=== PATIENT | female | born 1955 | race American Indian/Alaskan Native ===

== ENCOUNTER 2016-08-13 07:22 | Day surgery (SDC) | payer OTHER ==
[2016-06-21 09:10] VITALS: PULSE 73
[2016-08-12 12:17] VITALS: BMI 29.0
[2016-08-13 08:00] LABS: ADD MANUAL DIFF? NO
[2016-08-13 08:03] LABS: BASO # 0.04 K/mm3 (0.0-2.0); BASO % 0.4 % (0.0-3.0); EOS # 0.1 (0.0-0.7); EOS % 0.9 % (1.5-5.0); GRAN # 6.74 (1.4-6.5); GRAN % 62.7 % (50.0-68.0); HEMATOCRIT 38.8 % (36.0-48.0); LYMPH # 2.9 (1.2-3.4); LYMPH % 27.3 % (22.0-35.0); MEAN CORPUSCULAR HEMOGLOBIN 28.5 pg (25.0-35.0); MEAN CORPUSCULAR HGB CONC 32.7 g/dl (31.0-37.0); MEAN PLATELET VOLUME 9.4 fl (7.0-11.0); MONO # 0.9 (0.1-0.6); MONO % 8.7 % (1.0-6.0); PLATELET COUNT 355 10^3/uL (120.0-450.0); RED CELL DISTRIBUTION WIDTH 15.1 % (11.5-14.5); WHITE BLOOD COUNT 10.7 10^3/ul (4.5-11.0)
[2016-08-13 08:14] LABS: INR 1.02 (0.93-1.08); PARTIAL THROMBOPLASTIN TIME 30.6 Seconds (23.7-30.8)
--- NOTE | 2016-08-13 08:17 | CP.SDSHP ---
Same Day Surgery H & P - History Proposed Procedure: lung Bx. Pre-Op Diagnosis: spiculated lung nodule in left upper lobe. - Previous Medical/Surgical History Cardiac: Hypertension, ASHD/CAD, Previous IN, Hx of CHF Pulmonary: Emphysema/COPD, Smoking Neuro: Backaches Pain: 0. No Pain Previous Surgical History: STENT HEART . - Allergies Allergies: Allergies No Known Allergies Allergy (Verified 06/20/16 12:10) - Physical Exam General Appearance: WNL. Vital Signs: Vital Signs 08/13/16 07:46 Temperature 98.2 F Pulse Rate 84 Respiratory 18 Rate Blood Pressure 143/84 O2 Sat by Pulse 99 Oximetry Mental Status: Alert & Oriented x3 Neuro: WNL Heart: WNL Lungs: WNL GI: WNL - {Optional Preform as Required} Other Pertinent Findings: HX of gerd . hx of anxiety. - Impression Impression: LUNG NODULE LEFT UPPER LOBE. - Date & Time Date: 08/13/16 Time: 08:17 Short Stay Discharge - Short Stay Discharge Admitting Diagnosis/Reason for Visit: LUNG NODULE R91.1 Disposition: HOME/ ROUTINE
[2016-08-13 08:20] LABS: ALB/GLOB RATIO 1.3 (1.1-1.8); ALKALINE PHOSPHATASE 91 U/L (38-133); ALT/SGPT 28 U/L (7-56); AST/SGOT 20 U/L (15-39); BILIRUBIN,TOTAL 0.5 mg/dL (0.2-1.3); BLOOD UREA NITROGEN 21 mg/dL (7-21); CALCIUM 9.6 mg/dL (8.4-10.5); CARBON DIOXIDE 28 mmol/L (21-33); CHLORIDE 101 mmol/L (98-107); GFR AFRICAN-AMERICAN > 60; GLUCOSE,RANDOM 97 mg/dL (70-110); POTASSIUM 3.8 mmol/L (3.6-5.0); SODIUM 139 mmol/L (132-148); TOTAL PROTEIN 7.7 g/dL (5.8-8.3)
[2016-08-13] MEDS ORDERED: Midazolam 2 MG/2 ML VIAL ONE (09:22)
[2016-08-13] MEDS ORDERED: Sodium Chloride 0.45% 1,000 ML IV SCH (10:30)
[2016-08-13 10:48] VITALS: O2SAT 98
[2016-08-13 11:37] VITALS: PULSE 80; RESP 18; TEMP 98.4
[2016-08-13 11:54] VITALS: BP 122/82
--- NOTE | 2016-08-13 14:29 | CT ---
PROCEDURE: CT of the chest without contrast HISTORY: CT LIMITED STUDY - REPLACING Bx COMPARISON: 07/18/2016 TECHNIQUE: Without contrast limited study FINDINGS: The study was initially performed for the purposes of a biopsy. However images show a decrease in the size of the left upper lobe nodule. Therefore the biopsy was canceled IMPRESSION: Decreased size of left upper lobe nodule. Biopsy was not performed
== END 2016-08-13 12:25 | disposition home or self-care (01) ==
LOC: SDS 07:22
PROVIDERS: ATTEND Radiology Vascular & Interventional Radiology
DX: R91.1 Solitary pulmonary nodule (principal); I10 Essential (primary) hypertension; I25.10 Atherosclerotic heart disease of native coronary artery without angina pectoris; I50.9 Heart failure, unspecified; J44.9 Chronic obstructive pulmonary disease, unspecified; M54.9 Dorsalgia, unspecified; F17.210 Nicotine dependence, cigarettes, uncomplicated; I25.2 Old myocardial infarction; Z95.5 Presence of coronary angioplasty implant and graft; Z53.8 Procedure and treatment not carried out for other reasons
CPT/HCPCS: 36415; 71250; 80053; 85025; 85610; 85730; J2250; J2405; J3010; J7030

== ENCOUNTER 2016-09-18 22:11 | Observation (INO) | payer OTHER ==
[2016-09-18 22:16] VITALS: BMI 30.1
--- NOTE | 2016-09-18 22:29 | ED PDOC ---
Arrival/HPI - General Time Seen by Provider: 09/18/16 22:12 Historian: Patient - History of Present Illness Narrative History of Present Illness (Text): 09/18/16 22:28 Lelo Denton is a 60 year old female, whose past medical history includes heart murmur, NSTEMI, cardiac catheterization with stenting, hypertension, CHF, COPD, asthma, bronchitis, emphysma, and pneumonia, who presents to the ED complaining of shortness of breath. Patient states she has been experiencing intermittent shortness of breath since yesterday, progressively worsening throughout today. Patient reports associated chest tightness. Patient denies any fever, chills, abdominal pain, nausea, vomiting, diarrhea, urinary symptoms, back pain, neck pain, headache, dizziness, or any other complaints. PMD: Dr. Gisela Santana Time/Duration: Other (yesterday) Symptom Onset: Gradual Symptom Course: Unchanged, Intermittent Activities at Onset: Light Context: Home Past Medical History - Provider Review Nursing Documentation Reviewed: Yes - Infectious Disease Hx of Infectious Diseases: None - Tetanus Immunization Tetanus Immunization: Unknown - Past Medical History Past Medical History: No Previous - Cardiac Hx GA: Yes (2014) Hx Pacemaker: No - Pulmonary Hx Respiratory Disorders: Yes Hx Asthma: Yes Hx Bronchitis: Yes Hx Chronic Obstructive Pulmonary Disease (COPD): Yes Hx Emphysema: Yes Hx Pneumonia: Yes - Neurological Hx Paralysis: No - HEENT Hx HEENT Disorder: Yes (reading glasses) - Renal Hx Renal Disorder: No - Endocrine/Metabolic Hx Endocrine Disorders: No - Hematological/Oncological Hx Blood Transfusions: No Hx Blood Transfusion Reaction: No - Integumentary Hx Dermatological Disorder: No - Musculoskeletal/Rheumatological Hx Musculoskeletal Disorders: Yes - Gastrointestinal Hx Gastrointestinal Disorders: No - Genitourinary/Gynecological Hx Genitourinary Disorders: Yes (TUBAL LIGATION) Hx Urinary Tract Infection: Yes - Psychiatric Hx Emotional Abuse: No Hx Physical Abuse: No Hx Substance Use: No - Past Surgical History Past Surgical History: Non-Contributing - Surgical History Hx Cardiac Catheterization: Yes Hx Coronary Stent: Yes (10/19/2014) Other/Comment: HX OF TUBAL LIGATION - Anesthesia Hx Anesthesia: Yes Hx Anesthesia Reactions: No Hx Malignant Hyperthermia: No - Suicidal Assessment Feels Threatened In Home Enviroment: No Family/Social History - Physician Review Nursing Documentation Reviewed: Yes Family/Social History: No Known Family HX Smoking Status: Former Smoker Hx Alcohol Use: No Hx Substance Use: No Hx Substance Use Treatment: No Allergies/Home Meds Allergies/Adverse Reactions: Allergies No Known Allergies Allergy (Verified 06/20/16 12:10) Home Medications: Home Meds Medication Instructions Recorded Confirmed Albuterol HFA [Ventolin HFA 90 2 puff IH Q4 PRN 08/12/16 09/19/16 mcg/actuation (8 g)] Albuterol/Ipratropium [Duoneb 3 3 ml IH [id number] PRN 08/12/16 09/19/16 mg/0.5 mg (3 ml) UD] Review of Systems - Physician Review All systems were reviewed & negative as marked: Yes - Review of Systems Constitutional: Normal Eyes: Normal ENT: Normal Respiratory: SOB Cardiovascular: Chest Pain Gastrointestinal: Normal. absent: Abdominal Pain, Diarrhea, Nausea, Vomiting Genitourinary Female: Normal Musculoskeletal: Normal. absent: Back Pain, Neck Pain Skin: Normal. absent: Rash Neurological: Normal. absent: Headache, Dizziness Endocrine: Normal Hemo/Lymphatic: Normal Psychiatric: Normal Physical Exam Vital Signs Reviewed: Yes Vital Signs Temp Pulse Pulse Resp BP Pulse Ox 09/19/16 18:15 98.5 F 108 H 20 129/80 09/19/16 18:07 98.2 F 09/19/16 18:00 114 H 20 123/78 95 09/19/16 17:43 98.6 F 90 90 16 129/68 09/19/16 16:30 102 H 20 112/73 09/19/16 14:30 102 H 20 115/76 97 09/19/16 13:30 104 H 20 130/81 98 09/19/16 11:30 98 H 20 128/76 97 09/19/16 10:53 126/76 09/19/16 09:00 102 H 20 122/78 96 09/19/16 07:30 98.6 F 90 16 129/68 95 09/19/16 06:29 92 H 17 123/86 99 09/19/16 05:40 93 H 17 123/71 98 09/19/16 03:36 97 H 17 114/73 97 09/19/16 00:45 99 H 18 132/74 99 09/18/16 22:28 114 H 25 H 142/84 100 Temperature: Afebrile Blood Pressure: Normal Pulse: Regular Respiratory Rate: Normal Appearance: Positive for: Well-Appearing, Non-Toxic, Comfortable Pain Distress: None Mental Status: Positive for: Alert and Oriented X 3 - Systems Exam Head: Present: Atraumatic, Normocephalic Pupils: Present: PERRL Extroacular Muscles: Present: EOMI Conjunctiva: Present: Normal Mouth: Present: Moist Mucous Membranes Neck: Present: Normal Range of Motion Respiratory/Chest: Present: Wheezes. No: Respiratory Distress, Accessory Muscle Use Cardiovascular: Present: Regular Rate and Rhythm, Normal S1, S2. No: Murmurs Abdomen: Present: Normal Bowel Sounds. No: Tenderness, Distention, Peritoneal Signs Upper Extremity: Present: Normal Inspection. No: Cyanosis, Edema Lower Extremity: Present: Normal Inspection. No: Edema Neurological: Present: GCS=15, CN II-XII Intact, Speech Normal Skin: Present: Warm, Dry, Normal Color. No: Rashes Psychiatric: Present: Alert, Oriented x 3, Normal Insight, Normal Concentration Medical Decision Making ED Course and Treatment: 09/18/16 22:29 Impression: 60 y/o female c/o shortness of breath and chest tightness since yesterday. Differential Diagnosis included but are not limited to: COPD vs. asthma exacerbation v.s pneumonia vs. bronchitis Plan: -- EKG -- CXR -- Labs, cardiac enzymes, BNP, VBG, blood cultures -- Duoneb -- Solu-medrol - Reassess and disposition Prior Visits: Notes and results from previous visits were reviewed. On 08/17/2016, pt was seen in the ED for shortness of breath, chest pressure, and pleuritic chest pain. Pt was admitted to the hospital for further evaluation. Progress Notes: Reviewed EKG, sinus tachycardia at 113 bpm. Non-specific ST/T wave changes. 09/18/16 23:36 Reviewed radiology, CXR shows COPD. 09/18/16 23:[address] Santana, who is aware and agrees with plan. Accepts pt in to his service. Pt will go to Telemetry observation for COPD. Discussed results and hospital observation plan with pt, who is aware and verbalizes understanding. 09/19/16 02:47 Reviewed CTA Chest, shows: 1. There is emphysema. Stable left upper lobe pulmonary nodule. No focal pneumonia. 2. There is mediastinal adenopathy. - Lab Interpretations Microbiology Results: Microbiology Results 09/18/16 23:05 Blood-Venous Blood Culture - Preliminary NO GROWTH AFTER 48 HOURS 09/18/16 22:50 Blood-Venous Blood Culture - Preliminary NO GROWTH AFTER 48 HOURS Lab Results: 09/18/16 22:50 09/18/16 22:50 Lab Results 09/18/16 22:50: Sodium 140, Chloride 102, Potassium 3.6, Carbon Dioxide 30, Anion Gap 12, BUN 11, Creatinine 0.8, Est GFR ( Amer) > 60, Est GFR (Non- Af Amer) > 60, Random Glucose 117 H, Calcium 8.9, Total Bilirubin 0.4, AST 26, ALT 23, Alkaline Phosphatase 84, Lactate Dehydrogenase 478, Total Creatine Kinase 212, Troponin I < 0.01, NT-Pro-B Natriuret Pep 52.0, Total Protein 6.7, Albumin 3.9, Globulin 2.9, Albumin/Globulin Ratio 1.3 09/18/16 22:50: pO2 219 H, VBG pH 7.38, VBG pCO2 52.0, VBG HCO3 30.8 H, VBG Total CO2 32.4 H, VBG O2 Sat (Calc) 99.5 H, VBG Base Excess 4.4 H, VBG Potassium 3.5 L, Sodium 139.0, Chloride 109.0 H, Glucose 126 H, Lactate 1.1, FiO2 21.0, Venous Blood Potassium 3.5 L 09/18/16 22:50: WBC 7.7 D, RBC 4.44, Hgb 12.4, Hct 38.5, MCV 86.7, MCH 27.9, MCHC 32.2, RDW 15.5 H, Plt Count 308, MPV 9.4, Gran % 66.3, Lymph % (Auto) 20.9 L, Victoria % (Auto) 9.6 H, Eos % (Auto) 2.9, Baso % (Auto) 0.3, Gran # 5.10, Lymph # 1.6, Victoria # 0.7 H, Eos # 0.2, Baso # 0.02 I have reviewed the lab results: Yes - RAD Interpretation Narrative RAD Interpretations (Text): CTA Chest, shows: Pulmonary arteries: No acute findings. No pulmonary embolism. Aorta: No acute findings. No thoracic aortic aneurysm. Lungs: There is emphysema. Stable left upper lobe pulmonary nodule. No focal pneumonia. Pleural space: No acute findings. No significant effusion. No pneumothorax. Heart: No acute findings. No cardiomegaly. No significant pericardial effusion. No evidence of RV dysfunction. Bones/joints: No acute fracture. No dislocation. Soft tissues: No acute findings. Lymph nodes: There is mediastinal adenopathy. IMPRESSION: 1. There is emphysema. Stable left upper lobe pulmonary nodule. No focal pneumonia. 2. There is mediastinal adenopathy. Radiology Orders: 09/18/16 22:33 CHEST PORTABLE [RAD] Stat 09/18/16 23:50 ANGIO CHEST PE PROTOCOL [CT] Stat Occupational Therapy Asst: ED Physician, Radiologist - EKG Interpretation Interpreted by ED Physician: Yes Type: 12 lead EKG - Medication Orders Current Medication Orders: Discontinued Medications Acetaminophen (Tylenol 325mg Tab) 650 mg PO Q4H PRN PRN Reason: Fever >100.5 F Last Admin: 09/19/16 14:27 Dose: 650 mg Re-Assess: MAR Pain/Vitals Document 09/19/16 15:27 [place] (Rec: 09/19/16 16:27 Eduar [id number]) Pain Reassessment Is This A Pain ReAssessment? Yes Sleep Is patient sleeping during reassessment? No Albuterol/Ipratropium (Duoneb 3 Mg/0.5 Mg (3 Ml) Ud) 3 ml IH Q15M [facility] Stop: 09/18/16 23:16 Last Admin: 09/18/16 23:20 Dose: 3 ml Albuterol/Ipratropium (Duoneb 3 Mg/0.5 Mg (3 Ml) Ud) 3 ml IH Q4H PRN PRN Reason: Shortness of Breath Last Admin: 09/19/16 19:48 Dose: 3 ml Atorvastatin Calcium (Lipitor) 40 mg PO DAILY [facility] Last Admin: 09/20/16 09:53 Dose: 40 mg Budesonide (Pulmicort Respules) 0.5 mg IH [id number] [facility] Last Admin: 09/20/16 08:35 Dose: 0.5 mg Clopidogrel Bisulfate (Plavix) 75 mg PO DAILY [facility] Last Admin: 09/20/16 09:53 Dose: 75 mg Digoxin (Lanoxin) 0.25 mg PO DAILY@1400 [facility] Last Admin: 09/19/16 14:23 Dose: 0.25 mg Furosemide (Lasix) 40 mg PO DAILY [facility] Last Admin: 09/20/16 09:53 Dose: 40 mg Hydromorphone HCl (Dilaudid) 1 mg IVP STAT STA Stop: 09/18/16 23:45 Last Admin: 09/18/16 23:52 Dose: 1 mg Re-Assess: JESS Pain Assessment Document 09/19/16 00:52 RD (Rec: 09/19/16 06:42 RD [id number]) Pain Reassessment Is this a pain reassessment? Yes Sleep Is patient sleeping during reassessment? No Presence of Pain Presence of Pain No Levalbuterol HCl (Xopenex) 0.63 mg IH [id number] [facility] Last Admin: 09/20/16 08:35 Dose: 0.63 mg Levalbuterol HCl (Xopenex) 0.63 mg IH Q2 PRN PRN Reason: Shortness of Breath Lisinopril (Zestril) 5 mg PO DAILY [facility] Last Admin: 09/20/16 09:53 Dose: 5 mg Methylprednisolone (Solu-Medrol) 125 mg IVP ONCE ONE Stop: 09/18/16 22:34 Last Admin: 09/18/16 22:43 Dose: 125 mg Methylprednisolone (Solu-Medrol) 30 mg IVP Q12 [facility] Last Admin: 09/19/16 22:19 Dose: 30 mg Methylprednisolone (Solu-Medrol) 20 mg IVP Q12 [facility] Last Admin: 09/20/16 09:52 Dose: 20 mg Metoprolol Tartrate (Lopressor) 25 mg PO DAILY [facility] Last Admin: 09/20/16 09:53 Dose: 25 mg Pneumococcal Polyvalent Vaccine (Pneumovax 23 Vaccine) 0.5 ml IM .ONCE ONE Stop: 09/19/16 18:02 Tramadol HCl (Ultram) 50 mg PO Q8 PRN PRN Reason: Pain, moderate (4-7) Last Admin: 09/19/16 22:19 Dose: 50 mg - Scribe Statement The provider has reviewed the documentation as recorded by the Arlene Cortez Provider Attestation: All medical record entries made by the Ejibdat were at my direction and personally dictated by me. I have reviewed the chart and agree that the record accurately reflects my personal performance of the history, physical exam, medical decision making, and the department course for this patient. I have also personally directed, reviewed, and agree with the discharge instructions and disposition. Disposition/Present on Arrival - Present on Arrival Any Indicators Present on Arrival: No History of DVT/PE: No History of Uncontrolled Diabetes: No Urinary Catheter: No History Surgical Site Infection Following: None - Disposition Have Diagnosis and Disposition been Completed?: Yes Diagnosis: COPD exacerbation Disposition: HOSPITALIZED Disposition Time: 23:50 Condition: FAIR
[2016-09-18] MEDS: Albuterol-Ipratrop 3 mg / 0.5 (3 ml) UD IH SCH ×3 (22:43→23:20)
[2016-09-18 22:58] LABS: ADD MANUAL DIFF? NO
[2016-09-18 23:02] LABS: VENOUS BLOOD GAS BASE EXCESS 4.4 mmol/L (0.0-2.0); VENOUS BLOOD PH 7.38 (7.32-7.43)
[2016-09-18 23:04] LABS: BASO # 0.02 K/mm3 (0.0-2.0); BASO % 0.3 % (0.0-3.0); EOS # 0.2 (0.0-0.7); EOS % 2.9 % (1.5-5.0); GRAN % 66.3 % (50.0-68.0); HEMATOCRIT 38.5 % (36.0-48.0); LYMPH # 1.6 (1.2-3.4); LYMPH % 20.9 % (22.0-35.0); MEAN CELL VOLUME 86.7 fL (80.0-105.0); MEAN CORPUSCULAR HEMOGLOBIN 27.9 pg (25.0-35.0); MEAN CORPUSCULAR HGB CONC 32.2 g/dl (31.0-37.0); MEAN PLATELET VOLUME 9.4 fl (7.0-11.0); MONO # 0.7 (0.1-0.6); MONO % 9.6 % (1.0-6.0); PLATELET COUNT 308 10^3/uL (120.0-450.0); RED CELL DISTRIBUTION WIDTH 15.5 % (11.5-14.5); WHITE BLOOD COUNT 7.7 10^3/ul (4.5-11.0)
[2016-09-18 23:17] LABS: ALB/GLOB RATIO 1.3 (1.1-1.8); ALKALINE PHOSPHATASE 84 U/L (38-133); ALT/SGPT 23 U/L (7-56); AST/SGOT 26 U/L (15-39); BILIRUBIN,TOTAL 0.4 mg/dL (0.2-1.3); BLOOD UREA NITROGEN 11 mg/dL (7-21); CALCIUM 8.9 mg/dL (8.4-10.5); CARBON DIOXIDE 30 mmol/L (21-33); CHLORIDE 102 mmol/L (98-107); GFR AFRICAN-AMERICAN > 60; GLUCOSE,RANDOM 117 mg/dL (70-110); POTASSIUM 3.6 mmol/L (3.6-5.0); SODIUM 140 mmol/L (132-148); TOTAL PROTEIN 6.7 g/dL (5.8-8.3)
[2016-09-18 23:29] LABS: TROPONIN I < 0.01 ng/mL
[2016-09-18] MEDS ORDERED: HYDROmorphone 1 mg/ml ISec IVP STA (23:44)
[2016-09-19] MEDS: Albuterol-Ipratrop 3 mg / 0.5 (3 ml) UD IH PRN ×2 (07:12→19:48)
--- NOTE | 2016-09-19 09:40 | HP ---
I know the patient very well. Actually, I saw her yesterday morning when she was leaving the [facility]. She was going home to take a nebulizer treatment and hopefully to keep her from coming to the [facility], but she came in with shortness of breath. She has done this many times in the past and had ti ghtness also. PAST MEDICAL HISTORY: Heart murmur, NSTEMI, cardiac catheterization with stenting, hypertension, CHF , COPD, asthma, bronchitis, emphysema, pneumonia with a gradual onset, even though the nebs did not w ork. She wears reading glasses, a lot of back pain. She had a tubal ligation. She has urinary trac t infections. ALLERGIES: No known drug allergies. She is a former smoker, no alcohol, no drugs. MEDICATIONS: She is on multiple. She is on DuoNeb, albuterol, digoxin, Lasix, atorvastatin, metopro lol, Plavix, and lisinopril. REVIEW OF SYSTEMS: No acute vision changes or hearing changes, no sore throat. There is chest pain. There is shortness of breath. There is coughing, congestion, wheezing. No abdominal pain, no diar carly, no nausea or vomiting. There is no back pain at this time. No swelling of the legs. No rashe s. No headache or dizziness. PHYSICAL EXAMINATION: VITAL SIGNS: She had a 114 pulse, 25 respiratory rate, 142/84 blood pressure, 100% on oxygen. GENERAL: A little bit uncomfortable in bed at this time. She is alert and oriented x 3. HEENT: Head is atraumatic, normocephalic. Extraocular muscles are intact. Pupils equal, reactive t o light and accommodation. Throat is moist. NECK: Supple. HEART: Regular rate. Normal S1 and S2. LUNGS: Decreased breath sounds bilaterally. There are wheezes that changes with cough. ABDOMEN: Soft, nontender, positive bowel sounds. EXTREMITIES: Have no edema. NEUROLOGIC: GCS is 15. Cranial nerves II-XII are grossly intact. Alert and oriented x 3. SKIN: Warm and dry. LYMPHATIC: Thyroid midline. No palpable lymphadenopathy. She had multiple tests. White count 7.7, hemoglobin 12.4, hematocrit 38.5, platelets of 308. Sodium 140, potassium 3.6, BUN 11, creatinine 0.8, GFR is greater than 60, sugar is 117, calcium is 8.9, to ayde bili is 0.4, AST is 26, ALT is 23, alk phos is 84. Lactic dehydrogenase is 478. Troponin is les s than 0.01. BNP is 52. Total protein 6.7, albumin is 3.9. CAT scan of the chest is pending. She is in observation. She will be on Solu-Medrol 30 q. 12. Cons ult for pulmonology. She is on observation. Hopefully, she will do well and be discharged tomorrow. The patient has acute exacerbation of chronic obstructive pulmonary disease. Tom Santana DO cc: [id number] TT: 09/19/2016 09:40:01 en
[2016-09-19] MEDS ORDERED: MethylPREDNISolone 40 mg Vial IVP SCH (10:00)
[2016-09-19] MEDS: MethylPREDNISolone 40 mg Vial IVP SCH ×2 (10:53→22:19)
--- NOTE | 2016-09-19 10:53 | CT ---
PROCEDURE: CT Chest with contrast (Pulmonary Angiogram) HISTORY: r/o pe COMPARISON: 07/26/2016 PET-CT scan. Summary of findings on the comparison examination: Re- demonstrated spiculated border noncalcified nodule left upper lobe with increased FDG uptake. Two enlarged mediastinal lymph nodes. TECHNIQUE: Axial computed tomography images were obtained of the chest in the pulmonary arterial phase of enhancement. Coronal and sagittal reformatted images were created and reviewed. Maximum intensity projection (MIP) reconstructed images in the following planes: Coronal projection only. Intravenous contrast dose: 100 cc Visipaque 320. Mean Hounsfield unit values in the main pulmonary artery: 270.67 Radiation dose: Total exam DLP = 295.71 mGy-cm. This CT exam was performed using one or more of the following dose reduction techniques: Automated exposure control, adjustment of the mA and/or kV according to patient size, and/or use of iterative reconstruction technique. FINDINGS: PULMONARY ARTERIES: Unremarkable. No pulmonary embolism. AORTA: No acute findings. No thoracic aortic aneurysm. LUNGS: Hyperinflation, manifestations of COPD. No active pulmonary disease. Spiculated focus in the left apex either neoplasm, scar/inflammatory process. PLEURAL SPACES: Unremarkable. No effusion or pneuomothorax. HEART: Unremarkable. No cardiomegaly. No significant pericardial effusion. LYMPH NODES: Extensive mediastinal adenopathy. Multiple confluent lymph nodes identified the largest in the AP window measures 2.7 cm. BONES, CHEST WALL: Unremarkable. No fracture or destructive lesion OTHER FINDINGS: Unremarkable. IMPRESSION: Unremarkable CT pulmonary angiogram. No pulmonary embolus. Spiculated focus left upper lobe presumed primary neoplasm. Extensive mediastinal adenopathy. Additional benign and/or incidental findings described above. Concordant results (preliminary interpretation) provided by [email or web address]. Procedure Completed: :11. Preliminary (vRad) Report: Dictated and Authenticated: 01:50. Final Interpretation: 08:01. Mid September 18, 2016.
--- NOTE | 2016-09-19 10:54 | RAD ---
HISTORY: sob COMPARISON: 08/17/2016 FINDINGS: LUNGS: No active pulmonary disease. PLEURA: No significant pleural effusion identified, no pneumothorax apparent. CARDIOVASCULAR: Normal. OSSEOUS STRUCTURES: No significant abnormalities. VISUALIZED UPPER ABDOMEN: Normal. OTHER FINDINGS: None. IMPRESSION: No active disease.
--- NOTE | 2016-09-19 11:07 | CARD ---
APPROVED REPORT EKG Measurement Heart [id number] <Conclusion> Sinus tachycardia Possible Left atrial enlargement Nonspecific ST and T wave abnormality Abnormal ECG
[2016-09-19] MEDS ORDERED: Digoxin 250 mcg (0.25 mg) Tab PO SCH (14:00)
[2016-09-19 14:24] VITALS: PULSE 104
[2016-09-19] MEDS ORDERED: Pneumococcal 23-Valent Vaccine IM ONE (18:01)
[2016-09-19 18:05] VITALS: RESP 20; O2SAT 95
[2016-09-20] MEDS ORDERED: Levalbuterol 0.63 MG/3 ML Inhal Soln UD IH PRN (06:32)
[2016-09-20 06:45] VITALS: BP 123/66; TEMP 98.3
[2016-09-20 06:46] VITALS: PULSE 94
[2016-09-20 07:13] LABS: HEMATOCRIT 37.7 % (36.0-48.0); MEAN CELL VOLUME 86.7 fL (80.0-105.0); MEAN CORPUSCULAR HEMOGLOBIN 27.4 pg (25.0-35.0); MEAN CORPUSCULAR HGB CONC 31.6 g/dl (31.0-37.0); MEAN PLATELET VOLUME 9.9 fl (7.0-11.0); RED CELL DISTRIBUTION WIDTH 15.6 % (11.5-14.5); WHITE BLOOD COUNT 13.9 10^3/ul (4.5-11.0)
[2016-09-20 07:18] LABS: ALB/GLOB RATIO 1.5 (1.1-1.8); ALKALINE PHOSPHATASE 76 U/L (38-133); ALT/SGPT 26 U/L (7-56); AST/SGOT 18 U/L (15-39); BILIRUBIN,TOTAL 0.2 mg/dL (0.2-1.3); BLOOD UREA NITROGEN 24 mg/dL (7-21); CALCIUM 9.2 mg/dL (8.4-10.5); CARBON DIOXIDE 28 mmol/L (21-33); CHLORIDE 102 mmol/L (95-110); GFR AFRICAN-AMERICAN > 60; GLUCOSE,RANDOM 168 mg/dL (70-110); POTASSIUM 4.9 mmol/L (3.6-5.0); SODIUM 138 mmol/L (132-148); TOTAL PROTEIN 6.8 g/dL (5.8-8.3)
[2016-09-20] MEDS ORDERED: Budesonide 0.5 mg/2 ml Inhal Susp UD IH SCH (08:00)
[2016-09-20] MEDS ORDERED: Levalbuterol 0.63 MG/3 ML Inhal Soln UD IH SCH (08:00)
--- NOTE | 2016-09-20 09:26 | CON ---
DATE: 09/20/2016 REASON FOR CONSULTATION: Chronic obstructive pulmonary disease. REFERRING PHYSICIAN: Dr. Santana. HISTORY OF PRESENT ILLNESS: The patient is a 60-year-old female with past medical history significant for chronic obstructive pulmonary disease, positive extensive smoking history, asthma, left upper lobe pulmonary nodule (workup in progress), coronary artery disease, status post cardiac stent, who presented to [facility] on 09/18/16 -- with a 1-day history of increasing shortness of breath at rest, dyspnea on exertion, and minimal cough. The patient denies sputum production. The patient also denies chest pain, coughing up of blood or chest pain -- made worse with deep respirations. There is no history of temperatures, chills or infectious exposure. There is no history of night sweats, weight loss or appetite change prior to the above events. No history of leg or calf pains. No history of syncope or diaphoresis. No history of recent travel or trauma. REVIEW OF SYSTEMS: No history of nausea, vomiting or diarrhea. No acute urinary symptoms. No new neurological or musculoskeletal complaints. Rest of the review of systems negative. ALLERGIES: No known allergies. SOCIAL HISTORY: Positive for extensive tobacco usage. No alcohol. FAMILY HISTORY: No inheritable diseases. HOME MEDICATIONS: Include Lopressor, Zestril, Lasix, Lanoxin, Plavix, Lipitor, Advair, DuoNebs. PHYSICAL EXAMINATION: GENERAL: The patient appears comfortable at rest. She is not short of breath. VITAL SIGNS: Temperature is 98.5, pulse on the monitor is 88, respiratory rate 18, last blood pressure recorded 129/80. Oxygen saturation on nasal cannula is 95-97%. HEENT: Normocephalic, atraumatic. No JVD. CARDIOVASCULAR: Positive S1, S2. No S3. LUNGS: Slight decreased breath sounds at the bases. Minimal rhonchi. No wheezing. EXTREMITIES: No clubbing, cyanosis, or edema. Calves are nontender to palpation. GASTROINTESTINAL: Abdomen is soft, nontender, nondistended. Bowel sounds are positive. SKIN: No acute rash. NEUROLOGIC: Limited at the present time. PERTINENT LABORATORY DATA: CAT scan of the chest was done on 09/18/16. The CAT scan was done as a pulmonary angiogram. There is no pulmonary embolism seen. There is redemonstration of the spiculated left upper lobe nodule. Dr. Lynn notes also extensive mediastinal adenopathy. Unfortunately, Dr. Lynn does NOT note a direct comparison of the most recent CAT scan-- to the previous chest CAT scan done. More specifically, he does not note a comparison of the extent of the mediastinal adenopathy or size of the pulmonary nodule -- compared to the last CAT scan. CBC: White count 7.7, hemoglobin 12.4, hematocrit 38.5, platelets of 308. Complete metabolic profile: Glucose 107. Rest of the metabolic profile is within normal limits. IMPRESSION: 1. Recurrent bronchitis. 2. Chronic obstructive pulmonary disease. 3. Asthma. 4. Coronary artery disease, status post cardiac stent. 5. Pulmonary nodule -- left upper. PLAN: The patient presents to [facility] with a 1-day history of increasing pulmonary symptoms. I did review the repeat chest x-ray done. The repeat chest x-ray shows no active disease. I have also reviewed the CAT scan of the chest. It is noted above. Again, unfortunately, Dr. Lynn does not note a direct comparison to the last CAT scan done. Specifically, I certainly would like to know if the left upper lobe nodule size or extent of the mediastinal adenopathy has changed. This patient has a very complicated history. The patient was supposed to get a CAT scan-guided lung biopsy on . However, there was a decrease in the left upper lobe nodule size and the biopsy was not done. At this point in time, I will request an addendumized report from Dr. Lynn. I will also discuss the above with Dr. Kris Uribe this morning. Clinically, the patient has improved while in the hospital. I will decrease the intravenous steroids this morning. I will also restart scheduled nebulizer treatments and inhaled Pulmicort. The patient does feel considerably better -- compared to the initial presentation. Again, I will discuss the case with Dr. Kris Uribe and Dr. Tom Lynn this morning. I will also discuss the case with Dr. Santana later this morning. Thank you very much for this pulmonary consultation. Alex Mcgill MD cc: [phone] TT: 09/20/2016 09:26:11 Confirmation # [id number] Dictation # [id number]
[2016-09-20] MEDS ORDERED: MethylPREDNISolone 40 mg Vial IVP SCH (10:00)
--- NOTE | 2016-09-20 15:37 | DS ---
She is sitting up in bed, eating all her breakfast. She is feeling better, she is breathing better, she is on oxygen. Lungs sound good. She is very comfortable. I discussed this with the applications developer, Dr. Mcgill. We will change her from Solu-Medrol 20 mg IV to prednisone 40 for 2 days, 30 for 2 days , 20 for 2 days, 10 for 2 days and she will stop. She is also going to follow up with Dr. Mcgill in the office next week. She had vital signs that were good. PHYSICAL EXAMINATION: VITAL SIGNS: Temp 98.3, 90 pulse, 123/66 blood pressure, 20 respiratory rate, 95% O2 sat on nasal cannula. HEENT: Head is atraumatic, normocephalic. HEART: Regular rate. LUNGS: Decreased breath sounds, that is her baseline, but clear. No wheezes, no rhonchi, no rales. ABDOMEN: Soft. EXTREMITIES: Have no edema. She will go home on her Lanoxin, her Lasix, her Lipitor, her Lopressor, her Plavix, her Pulmicort. She will have Tylenol. I will give her a prescription for Ultram for pain when she needs it. Xopenex she has, Zestril she has. She has the DuoNeb at home. She has a 13.9 white count from the steroids, 11.9 hemoglobin, 37.7 hematocrit, platelets. Sodium 138, potassium 4.7, BUN 24, creatinine 0.8, GFR is greater than 60, sugar is 168 from the steroids, calcium is 9.2, total bili is 0.2, AST is 18, ALT is 26, alk phos 76, total protein 6.8. Dr. Mcgill went over the CAT scan of the chest. He is comparing it to the PET scan that she had. They are following her for outpatient possible lung cancer. She is here for chronic obstructive pulmonary disease and she will be followed up in the outpatient with Dr. Mcgill and Dr. Santana. I wrote prescriptions. She understands. She said she is happy to be going. She was here for acute chronic obstructive pulmonary disease. Tom Santana DO cc: [id number] TT: 09/20/2016 15:36:26 en MTDD
== END 2016-09-20 11:07 | disposition home or self-care (01) ==
LOC: ED 22:11 → ERH 09-19 00:33 → 2RSO 09-19 18:32
PROVIDERS: ADMIT Family Medicine; ATTEND Family Medicine
DX: J44.1 Chronic obstructive pulmonary disease with (acute) exacerbation (principal); I50.9 Heart failure, unspecified; I11.0 Hypertensive heart disease with heart failure; I25.10 Atherosclerotic heart disease of native coronary artery without angina pectoris; R01.1 Cardiac murmur, unspecified; R91.1 Solitary pulmonary nodule; I25.2 Old myocardial infarction; Z87.440 Personal history of urinary (tract) infections; Z95.5 Presence of coronary angioplasty implant and graft; Z87.891 Personal history of nicotine dependence; Z87.01 Personal history of pneumonia (recurrent)
CPT/HCPCS: 36415; 71010; 71275; 80053; 82550; 82803; 83615; 83880; 84484; 85025; 85027; 87040; 93005; 94640; 96374; 99285; G0378; J1170; J2920; J2930

== ENCOUNTER 2016-10-10 04:41 | Emergency (ER) | payer OTHER ==
[2016-10-10 04:42] VITALS: PULSE 104; BMI 30.1
[2016-10-10 04:55] VITALS: TEMP 98.2
[2016-10-10] MEDS ORDERED: Naproxen 550 mg Tab PO SCH (05:28)
--- NOTE | 2016-10-10 05:35 | ED PDOC ---
Arrival/HPI - General Historian: Patient <Rachel Torres - Last Filed: 10/10/16 07:31> <Dakota Barillas - Last Filed: 10/10/16 07:39> - General Chief Complaint: Medical Clearance Time Seen by Provider: 10/10/16 05:26 - History of Present Illness Narrative History of Present Illness (Text): 10/10/16 05:28 Patient is a 60 year old F with pmh of asthma and htn presenting with muscle spasm. Patient states she has been experiencing the muscle spasm on/off for weeks now, but has not gotten it checked, then tonight while working upstairs, the spasm started again, started from the left arm, then the the right, then the legs, and now its everywhere except her private area. Patient denies muscle weakness, denies numbness or tingling sensation. Patient denies cp, sob, admits to palpitations. Admits to nausea, denies vomiting, diarrhea, or fever. ( Rachel Torres) Past Medical History - Provider Review Nursing Documentation Reviewed: Yes - Travel History Have you recently traveled outside [place] w/in the past 3 mons?: No - Infectious Disease Hx of Infectious Diseases: None - Tetanus Immunization Tetanus Immunization: Unknown - Reproductive Menopause: Yes - Past Medical History Past Medical History: No Previous - Cardiac Hx [place]: Yes (2014) Hx Pacemaker: No - Pulmonary Hx Respiratory Disorders: Yes Hx Asthma: Yes Hx Bronchitis: Yes Hx Chronic Obstructive Pulmonary Disease (COPD): Yes Hx Emphysema: Yes Hx Pneumonia: Yes - Neurological Hx Paralysis: No - HEENT Hx HEENT Disorder: Yes (reading glasses) - Renal Hx Renal Disorder: No - Endocrine/Metabolic Hx Endocrine Disorders: No - Hematological/Oncological Hx Blood Transfusions: No Hx Blood Transfusion Reaction: No - Integumentary Hx Dermatological Disorder: No - Musculoskeletal/Rheumatological Hx Musculoskeletal Disorders: Yes - Gastrointestinal Hx Gastrointestinal Disorders: No - Genitourinary/Gynecological Hx Genitourinary Disorders: Yes (TUBAL LIGATION) Hx Urinary Tract Infection: Yes - Psychiatric Hx Emotional Abuse: No Hx Physical Abuse: No Hx Substance Use: No - Past Surgical History Past Surgical History: Non-Contributing - Surgical History Hx Cardiac Catheterization: Yes Hx Coronary Stent: Yes (10/19/2014) Other/Comment: HX OF TUBAL LIGATION - Anesthesia Hx Anesthesia: Yes Hx Anesthesia Reactions: No Hx Malignant Hyperthermia: No - Suicidal Assessment Feels Threatened In Home Enviroment: No <Rachel Torres - Last Filed: 10/10/16 07:31> Family/Social History - Physician Review Nursing Documentation Reviewed: Yes Family/Social History: Hypertension Smoking Status: Former Smoker Hx Alcohol Use: No Hx Substance Use: No Hx Substance Use Treatment: No <Rachel Torres - Last Filed: 10/10/16 07:31> Allergies/Home Meds <MelissaRachel - Last Filed: 10/10/16 07:31> <Dakota Barillas - Last Filed: 10/10/16 07:39> Allergies/Adverse Reactions: Allergies No Known Allergies Allergy (Verified 06/20/16 12:10) Home Medications: Home Meds Medication Instructions Recorded Confirmed Albuterol HFA [Ventolin HFA 90 2 puff IH Q4 PRN 08/12/16 09/19/16 mcg/actuation (8 g)] Albuterol/Ipratropium [Duoneb 3 3 ml IH [id number] PRN 08/12/16 09/19/16 mg/0.5 mg (3 ml) UD] Review of Systems - Physician Review All systems were reviewed & negative as marked: Yes - Review of Systems Constitutional: Normal Eyes: Normal ENT: Normal Respiratory: Normal Cardiovascular: Palpitations. absent: Chest Pain, Edema, Calf Pain, Syncope Gastrointestinal: Normal Genitourinary Female: Normal Musculoskeletal: Other (spasm) Skin: Normal Neurological: Normal Endocrine: Normal Hemo/Lymphatic: Normal Psychiatric: Normal <Rachel Torres - Last Filed: 10/10/16 07:31> Physical Exam Temperature: Afebrile Blood Pressure: Normal Pulse: Tachycardic Respiratory Rate: Normal Appearance: Positive for: Well-Appearing, Non-Toxic, Comfortable Pain Distress: Mild Mental Status: Positive for: Alert and Oriented X 3 - Systems Exam Head: Present: Atraumatic, Normocephalic Pupils: Present: PERRL Extroacular Muscles: Present: EOMI Conjunctiva: Present: Normal Neck: Present: Normal Range of Motion. No: Meningeal Signs, MIDLINE TENDERNESS , Paraspinal Tenderness, Lymphadenopathy Respiratory/Chest: Present: Clear to Auscultation, Good Air Exchange. No: Respiratory Distress, Accessory Muscle Use, Wheezes, Decreased Breath Sounds, Rales Cardiovascular: Present: Regular Rate and Rhythm, Normal S1, S2, Tachycardic. No: Murmurs, Rub Abdomen: Present: Normal Bowel Sounds. No: Tenderness, Distention Back: Present: Normal Inspection. No: Midline Tenderness, Paraspinal Tenderness Upper Extremity: Present: Normal Inspection. No: Edema Lower Extremity: Present: Normal Inspection. No: Edema Neurological: Present: GCS=15, Speech Normal, Motor Func Grossly Intact Skin: Present: Warm, Dry, Rashes, Normal Color Psychiatric: Present: Alert, Oriented x 3, Anxious <Rachel Torres - Last Filed: 10/10/16 07:31> Medical Decision Making <Rachel Torres - Last Filed: 10/10/16 07:31> - Transfer of Care Patient signed out to Dr:Ajay Ca Pending Labs:: labs/reassess/final disposition <Dakota Barillas - Last Filed: 10/10/16 07:39> ED Course and Treatment: 10/10/16 05:38 Patient is a 60 year old F with pmh of asthma and htn presenting with muscle spasm. Likely neuropathy, r/o electrolytes imbalance, plan: will obtain basic labs ( cbc, cmp, mag and phos) will give naproxen and flexeril and reevaluate. Discussed with Dr Barillas. (Rachel Torres) 10/10/16 06:00 Pt. seen and evaluated with durable medical equipment technician.Agree with HPI,clinical findings, plan and management. (Dakota Barillas) - Lab Interpretations Lab Results: 10/10/16 06:00 10/10/16 06:00 Lab Results 10/10/16 06:00: Sodium 139, Potassium 5.1 H, Chloride 102, Carbon Dioxide 30, Anion Gap 12, BUN 18, Creatinine 1.0, Est GFR ( Amer) > 60, Est GFR (Non- Af Amer) 57, Random Glucose 76, Calcium 9.5, Phosphorus 3.6, Magnesium 1.9, Total Bilirubin 0.7, AST 33, ALT 25, Alkaline Phosphatase 84, Total Protein 8.2 , Albumin 4.6, Globulin 3.6, Albumin/Globulin Ratio 1.3 10/10/16 06:00: WBC 7.1 D, RBC 4.81, Hgb 13.3, Hct 41.8, MCV 86.9, MCH 27.7, MCHC 31.8, RDW 15.4 H, Plt Count 310, MPV 9.7, Gran % 54.0, Lymph % (Auto) 32.2 , [place] % (Auto) 11.0 H, Eos % (Auto) 2.5, Baso % (Auto) 0.3, Gran # 3.85, Lymph # 2.3, [place] # 0.8 H, Eos # 0.2, Baso # 0.02 - Medication Orders Current Medication Orders: Naproxen (Anaprox Ds) 550 mg PO BID JEANCARLOS Last Admin: 10/10/16 05:57 Dose: 550 mg Discontinued Medications Cyclobenzaprine HCl (Flexeril) 5 mg PO STAT STA Stop: 10/10/16 05:27 Last Admin: 10/10/16 05:58 Dose: 5 mg - PA / COPY OPERATOR / Resident Statement / has reviewed & agrees with the documentation as recorded. / has examined the patient and agrees with the treatment plan. <Dakota Barillas - Last Filed: 10/10/16 07:39> Disposition/Present on Arrival - Present on Arrival Any Indicators Present on Arrival: No History of DVT/PE: No History of Uncontrolled Diabetes: No Urinary Catheter: No History of Decub. Ulcer: No History Surgical Site Infection Following: None <Rachel Torres - Last Filed: 10/10/16 07:31> - Present on Arrival Any Indicators Present on Arrival: No - Disposition Have Diagnosis and Disposition been Completed?: No Disposition Time: 07:25 <Dakota Barillas - Last Filed: 10/10/16 07:39> - Disposition Diagnosis: Muscle spasm Condition: STABLE Referrals: [facility] Emmanuel Webster, [Primary Care Provider] - Follow up with primary
[2016-10-10 06:16] LABS: ADD MANUAL DIFF? NO
[2016-10-10 06:38] LABS: ALB/GLOB RATIO 1.3 (1.1-1.8); ALKALINE PHOSPHATASE 84 U/L (38-133); ALT/SGPT 25 U/L (7-56); AST/SGOT 33 U/L (15-39); BILIRUBIN,TOTAL 0.7 mg/dL (0.2-1.3); BLOOD UREA NITROGEN 18 mg/dL (7-21); CALCIUM 9.5 mg/dL (8.4-10.5); CARBON DIOXIDE 30 mmol/L (21-33); CHLORIDE 102 mmol/L (98-107); GFR AFRICAN-AMERICAN > 60; GLUCOSE,RANDOM 76 mg/dL (70-110); MAGNESIUM 1.9 mg/dL (1.7-2.2); PHOSPHOROUS 3.6 mg/dL (2.5-4.5); POTASSIUM 5.1 mmol/L (3.6-5.0); SODIUM 139 mmol/L (132-148); TOTAL PROTEIN 8.2 g/dL (5.8-8.3)
[2016-10-10 06:55] LABS: BASO # 0.02 K/mm3 (0.0-2.0); BASO % 0.3 % (0.0-3.0); EOS # 0.2 (0.0-0.7); EOS % 2.5 % (1.5-5.0); GRAN # 3.85 (1.4-6.5); HEMATOCRIT 41.8 % (36.0-48.0); LYMPH # 2.3 (1.2-3.4); LYMPH % 32.2 % (22.0-35.0); MEAN CELL VOLUME 86.9 fL (80.0-105.0); MEAN CORPUSCULAR HEMOGLOBIN 27.7 pg (25.0-35.0); MEAN CORPUSCULAR HGB CONC 31.8 g/dl (31.0-37.0); MEAN PLATELET VOLUME 9.7 fl (7.0-11.0); MONO # 0.8 (0.1-0.6); PLATELET COUNT 310 10^3/uL (120.0-450.0); RED CELL DISTRIBUTION WIDTH 15.4 % (11.5-14.5); WHITE BLOOD COUNT 7.1 10^3/ul (4.5-11.0)
[2016-10-10 07:43] LABS: TROPONIN I < 0.01 ng/mL
--- NOTE | 2016-10-10 08:00 | ED PDOC ---
Physical Exam Vital Signs Reviewed: Yes Vital Signs Temp Pulse Resp BP Pulse Ox 10/10/16 07:00 94 H 16 122/73 95 10/10/16 06:00 105 H 16 130/78 96 10/10/16 04:54 98.2 F 105 H 16 112/65 95 Temperature: Afebrile Blood Pressure: Normal Pulse: Tachycardic Respiratory Rate: Normal Medical Decision Making ED Course and Treatment: 10/10/16 07:00 Patient endorsed to me by Dr. Barillas. Pending results of cardiac enzymes and re-evaluation. 10/10/16 07:58 Labs reviewed, cardiac enzymes normal. On re-evaluation, patient feels better and is in no acute distress. I have discussed the results and plan with the patient, who expresses understanding. Patient in agreement with plan to be discharged home. Patient is stable for discharge. Patient was instructed to follow up with physician or return if symptoms worsen or new concerning symptoms arise. - Lab Interpretations Lab Results: 10/10/16 06:00 10/10/16 06:00 Lab Results 10/10/16 06:00: Lactate Dehydrogenase 885 H, Total Creatine Kinase 228, Troponin I < 0.01 10/10/16 06:00: Sodium 139, Potassium 5.1 H, Chloride 102, Carbon Dioxide 30, Anion Gap 12, BUN 18, Creatinine 1.0, Est GFR ( Amer) > 60, Est GFR (Non- Af Amer) 57, Random Glucose 76, Calcium 9.5, Phosphorus 3.6, Magnesium 1.9, Total Bilirubin 0.7, AST 33, ALT 25, Alkaline Phosphatase 84, Total Protein 8.2 , Albumin 4.6, Globulin 3.6, Albumin/Globulin Ratio 1.3 10/10/16 06:00: WBC 7.1 D, RBC 4.81, Hgb 13.3, Hct 41.8, MCV 86.9, MCH 27.7, MCHC 31.8, RDW 15.4 H, Plt Count 310, MPV 9.7, Gran % 54.0, Lymph % (Auto) 32.2 , [place] % (Auto) 11.0 H, Eos % (Auto) 2.5, Baso % (Auto) 0.3, Gran # 3.85, Lymph # 2.3, [place] # 0.8 H, Eos # 0.2, Baso # 0.02 - Medication Orders Current Medication Orders: Naproxen (Anaprox Ds) 550 mg PO BID JEANCARLOS Last Admin: 10/10/16 05:57 Dose: 550 mg Discontinued Medications Cyclobenzaprine HCl (Flexeril) 5 mg PO STAT STA Stop: 10/10/16 05:27 Last Admin: 10/10/16 05:58 Dose: 5 mg - Scribe Statement The provider has reviewed the documentation as recorded by the Arlene Vega Provider Scribe Attestation: All medical record entries made by the Scribe were at my direction and personally dictated by me. I have reviewed the chart and agree that the record accurately reflects my personal performance of the history, physical exam, medical decision making, and the department course for this patient. I have also personally directed, reviewed, and agree with the discharge instructions and disposition. Disposition/Present on Arrival - Present on Arrival Any Indicators Present on Arrival: No History of DVT/PE: No History of Uncontrolled Diabetes: No Urinary Catheter: No History of Decub. Ulcer: No History Surgical Site Infection Following: None - Disposition Have Diagnosis and Disposition been Completed?: Yes Diagnosis: Muscle spasm Disposition: HOME/ ROUTINE Disposition Time: 07:58 Patient Plan: Discharge Patient Problems: Current Active Problems Problem Status Onset Muscle spasm Acute Condition: IMPROVED Discharge Instructions (ExitCare): Muscle Spasm (ED) Additional Instructions: Ms Denton, thank you for letting us take care of you today. Your provider was Dr. Ca. You were treated for Muscle Spasm. The emergency medical care you received today was directed at your acute symptoms. If you were prescribed any medication, please fill it and take as directed. It may take several days for your symptoms to resolve. Return to the Emergency Department if your symptoms worsen, do not improve, or if you have any other problems. Please contact your doctor or call one of the physicians/clinics you have been referred to that are listed on the Patient Visit Information form that is included in your discharge packet. Bring any paperwork you were given at discharge with you along with any medications you are taking to your follow up visit. Our treatment cannot replace ongoing medical care by a primary care provider (PCP) outside of the emergency department. Thank you for allowing the [facility] team to be part of your care today. If you had an X-Ray or CT scan: A Radiologist will review the ED reading if any change in treatment is needed we will contact you. If you had a blood, urine, or wound culture: It will take several days for the results, if any change in treatment is needed we will contact you. If you had an STI test: It will take 48 hours for the results. Please call after 1 week if you have not heard back. Prescriptions: Cyclobenzaprine [Flexeril] 5 mg PO Q8 PRN #10 tab PRN Reason: Muscle Spasm Naproxen 500 mg PO BID PRN #30 tab PRN Reason: Pain, Moderate (4-7) Referrals: [facility], [Non-Staff] - Follow up with primary Forms: [facility] (Bhutanese), WORK NOTE
[2016-10-10 08:04] VITALS: BP 154/78; PULSE 92; RESP 17; O2SAT 97
--- NOTE | 2016-10-10 23:02 | CARD ---
APPROVED REPORT EKG Measurement Heart [id number] <Conclusion> Sinus tachycardia Possible Left atrial enlargement Left ventricular hypertrophy with repolarization abnormality Abnormal ECG
== END 2016-10-10 08:05 | disposition home or self-care (01) ==
LOC: ED 04:41
DX: M62.838 Other muscle spasm (principal); I10 Essential (primary) hypertension; Z87.891 Personal history of nicotine dependence

== ENCOUNTER 2016-11-18 22:54 | Observation (INO) | payer OTHER ==
[2016-11-18] MEDS ORDERED: Albuterol-Ipratrop 3 mg / 0.5 (3 ml) UD ONE (23:06)
--- NOTE | 2016-11-18 23:21 | ED PDOC ---
Arrival/HPI - General Chief Complaint: Shortness Of Breath Time Seen by Provider: 11/18/16 23:06 Historian: Patient - History of Present Illness Narrative History of Present Illness (Text): 11/18/16 23:17 Lelo Denton is a 60 year old female, whose past medical history includes NSTEMI , cardiac catheterization with stents, CHF, asthma, and COPD, presents to the emergency department complaining of 2 day duration of intermittent shortness of breath. States she used breathing treatments at home for minimal symptomatic relief. Also notes that she current has a headache. Denies any fever, chills, dizziness, chest pain, nausea, vomiting, diarrhea, urinary symptoms, or any other complaints at this time. Time/Duration: Other (couple of days ) Symptom Course: Intermittent Severity Level: Mild Activities at Onset: Light Past Medical History - Provider Review Nursing Documentation Reviewed: Yes - Infectious Disease Hx of Infectious Diseases: None - Tetanus Immunization Tetanus Immunization: Unknown - Reproductive Menopause: No - Past Medical History Past Medical History: No Previous - Cardiac Hx [place]: Yes (2014) Hx Pacemaker: No - Pulmonary Hx Respiratory Disorders: Yes Hx Asthma: Yes Hx Bronchitis: Yes Hx Chronic Obstructive Pulmonary Disease (COPD): Yes Hx Emphysema: Yes Hx Pneumonia: Yes - Neurological Hx Paralysis: No - HEENT Hx HEENT Disorder: Yes (reading glasses) - Renal Hx Renal Disorder: No - Endocrine/Metabolic Hx Endocrine Disorders: No - Hematological/Oncological Hx Blood Transfusions: No Hx Blood Transfusion Reaction: No - Integumentary Hx Dermatological Disorder: No - Musculoskeletal/Rheumatological Hx Musculoskeletal Disorders: Yes - Gastrointestinal Hx Gastrointestinal Disorders: No - Genitourinary/Gynecological Hx Genitourinary Disorders: Yes (TUBAL LIGATION) Hx Urinary Tract Infection: Yes - Psychiatric Hx Emotional Abuse: No Hx Physical Abuse: No Hx Substance Use: No - Past Surgical History Past Surgical History: Non-Contributing - Surgical History Hx Cardiac Catheterization: Yes Hx Coronary Stent: Yes (10/19/2014) Other/Comment: HX OF TUBAL LIGATION - Anesthesia Hx Anesthesia: Yes Hx Anesthesia Reactions: No Hx Malignant Hyperthermia: No - Suicidal Assessment Feels Threatened In Home Enviroment: No Family/Social History - Physician Review Nursing Documentation Reviewed: Yes Family/Social History: No Known Family HX Smoking Status: Former Smoker Hx Alcohol Use: No Hx Substance Use: No Hx Substance Use Treatment: No Allergies/Home Meds Allergies/Adverse Reactions: Allergies No Known Allergies Allergy (Verified 06/20/16 12:10) Home Medications: Home Meds Medication Instructions Recorded Confirmed Albuterol HFA [Ventolin HFA 90 2 puff IH Q4 PRN 08/12/16 11/18/16 mcg/actuation (8 g)] Albuterol/Ipratropium [Duoneb 3 3 ml IH [id number] PRN 08/12/16 11/18/16 mg/0.5 mg (3 ml) UD] Review of Systems - Physician Review All systems were reviewed & negative as marked: Yes - Review of Systems Constitutional: Normal. absent: Fatigue, Fevers Respiratory: SOB, Cough. absent: Sputum Cardiovascular: Normal Gastrointestinal: Normal. absent: Abdominal Pain, Diarrhea, Nausea, Vomiting Genitourinary Female: Normal Neurological: Headache Psychiatric: Normal Physical Exam Vital Signs Reviewed: Yes Vital Signs Temp Pulse Resp BP Pulse Ox 11/18/16 23:07 97.7 F 92 H 20 120/79 97 Temperature: Afebrile Blood Pressure: Normal Pulse: Regular Respiratory Rate: Normal Appearance: Positive for: Well-Appearing, Non-Toxic, Comfortable Pain Distress: None Mental Status: Positive for: Alert and Oriented X 3 - Systems Exam Head: Present: Atraumatic, Normocephalic Pupils: Present: PERRL Conjunctiva: Present: Normal Mouth: Present: Moist Mucous Membranes Cardiovascular: Present: Regular Rate and Rhythm, Normal S1, S2. No: Murmurs Abdomen: Present: Normal Bowel Sounds. No: Tenderness, Distention, Peritoneal Signs Upper Extremity: Present: Normal Inspection. No: Cyanosis, Edema Lower Extremity: Present: Normal Inspection. No: Edema Neurological: Present: GCS=15, CN II-XII Intact, Speech Normal, Motor Func Grossly Intact, Normal Sensory Function Skin: Present: Warm, Dry, Normal Color. No: Rashes Psychiatric: Present: Alert, Oriented x 3, Normal Insight, Normal Concentration Medical Decision Making ED Course and Treatment: 11/18/16 23:23 Impression: A 60 year old female who presents to the emergency department complaining of shortness of breath for past 2 days. Plan: -- EKG -- Labs, cardiac enzymes -- Chest X-ray -- Duoneb -- Percocet -- Solumedrol -- blood Cultures -- Reassess and disposition Progress Notes: 11/19/16 02:09 Case discussed with , who is aware and agrees with the plan to observe patient at telemetry for COPD. Accepts patient under his service. - Lab Interpretations Lab Results: 11/19/16 00:35 11/19/16 00:35 Lab Results 11/19/16 00:35: Sodium 141, Chloride 103, Potassium 4.0, Carbon Dioxide 28, Anion Gap 14, BUN 15, Creatinine 0.8, Est GFR ( Amer) > 60, Est GFR (Non- Af Amer) > 60, Random Glucose 99, Calcium 9.3, Total Bilirubin 0.5, AST 25, ALT 27, Alkaline Phosphatase 81, Lactate Dehydrogenase 619, Total Creatine Kinase 186, Troponin I < 0.01, NT-Pro-B Natriuret Pep 99.2, Total Protein 7.5, Albumin 4.3, Globulin 3.2, Albumin/Globulin Ratio 1.3 11/19/16 00:35: pO2 36, VBG pH 7.33, VBG pCO2 59.0, VBG HCO3 31.1 H, VBG Total CO2 32.9 H, VBG O2 Sat (Calc) 74.5 H, VBG Base Excess 3.6 H, VBG Potassium 3.9, Sodium 141.0, Chloride 108.0 H, Glucose 103, Lactate 1.1, FiO2 21.0, Venous Blood Potassium 3.9 11/19/16 00:35: WBC 10.8 D, RBC 4.81, Hgb 13.4, Hct 41.2, MCV 85.7, MCH 27.9, MCHC 32.5, RDW 16.2 H, Plt Count 327, MPV 9.2, Gran % 58.5, Lymph % (Auto) 30.7 , [place] % (Auto) 7.5 H, Eos % (Auto) 3.1, Baso % (Auto) 0.2, Gran # 6.32, Lymph # 3.3, [place] # 0.8 H, Eos # 0.3, Baso # 0.02 - RAD Interpretation Radiology Orders: 11/18/16 23:32 CHEST PORTABLE [RAD] Stat - Medication Orders Current Medication Orders: Acetaminophen (Tylenol 325mg Tab) 650 mg PO Q4H PRN PRN Reason: Pain, Mild (1-3) Albuterol/Ipratropium (Duoneb 3 Mg/0.5 Mg (3 Ml) Ud) 3 ml IH Q4H PRN PRN Reason: Shortness of Breath Discontinued Medications Albuterol/Ipratropium (Duoneb 3 Mg/0.5 Mg (3 Ml) Ud) Confirm Administered Dose 9 ml .ROUTE .STK-MED ONE Stop: 11/18/16 23:07 Last Admin: 11/18/16 23:14 Dose: 9 ml Albuterol/Ipratropium (Duoneb 3 Mg/0.5 Mg (3 Ml) Ud) 3 ml IH Q15M JEANCARLOS Stop: 11/19/16 00:16 Last Admin: 11/19/16 00:51 Dose: 3 ml Methylprednisolone (Solu-Medrol) 125 mg IVP ONCE ONE Stop: 11/18/16 23:34 Last Admin: 11/19/16 00:51 Dose: 125 mg Oxycodone/Acetaminophen (Percocet 5/325 Mg Tab) 1 tab PO STAT STA Stop: 11/19/16 00:41 Last Admin: 11/19/16 00:51 Dose: 1 tab - Scribe Statement The provider has reviewed the documentation as recorded by the Arlene Brewster Provider Attestation: Provider Scribe Attestation: All medical record entries made by the Scribdat were at my direction and personally dictated by me. I have reviewed the chart and agree that the record accurately reflects my personal performance of the history, physical exam, medical decision making, and the department course for this patient. I have also personally directed, reviewed, and agree with the discharge instructions and disposition. Disposition/Present on Arrival - Present on Arrival History of DVT/PE: No History of Uncontrolled Diabetes: No Urinary Catheter: No History of Decub. Ulcer: No History Surgical Site Infection Following: None - Disposition
[2016-11-19] MEDS ORDERED: Oxycodone/Acetaminophen 5/325 mg Tab PO STA (00:40)
[2016-11-19 00:47] LABS: BASO # 0.02 K/mm3 (0.0-2.0); BASO % 0.2 % (0.0-3.0); EOS # 0.3 (0.0-0.7); EOS % 3.1 % (1.5-5.0); GRAN # 6.32 (1.4-6.5); GRAN % 58.5 % (50.0-68.0); HEMOGLOBIN 13.4 gm/dL (12.0-16.0); LYMPH # 3.3 (1.2-3.4); LYMPH % 30.7 % (22.0-35.0); MEAN CELL VOLUME 85.7 fL (80.0-105.0); MEAN CORPUSCULAR HEMOGLOBIN 27.9 pg (25.0-35.0); MEAN CORPUSCULAR HGB CONC 32.5 g/dl (31.0-37.0); MEAN PLATELET VOLUME 9.2 fl (7.0-11.0); MONO # 0.8 (0.1-0.6); MONO % 7.5 % (1.0-6.0); PLATELET COUNT 327 10^3/uL (120.0-450.0); RBC 4.81 10^6/uL (3.5-6.1); RED CELL DISTRIBUTION WIDTH 16.2 % (11.5-14.5); WHITE BLOOD COUNT 10.8 10^3/ul (4.5-11.0)
[2016-11-19 00:49] LABS: VENOUS BLOOD GAS BASE EXCESS 3.6 mmol/L (0.0-2.0); VENOUS BLOOD GAS PO2 36 mm/Hg (30-55); VENOUS BLOOD PH 7.33 (7.32-7.43)
[2016-11-19] MEDS: Albuterol-Ipratrop 3 mg / 0.5 (3 ml) UD IH SCH ×5 (00:51→19:24)
[2016-11-19 01:01] LABS: ALB/GLOB RATIO 1.3 (1.1-1.8); ALBUMIN 4.3 g/dL (3.0-4.8); ALT/SGPT 27 U/L (7-56); AST/SGOT 25 U/L (15-39); BLOOD UREA NITROGEN 15 mg/dL (7-21); CALCIUM 9.3 mg/dL (8.4-10.5); GFR AFRICAN-AMERICAN > 60; GFR NON-AFRICAN AMERICAN > 60
[2016-11-19 01:13] LABS: B-TYPE NATRIURETIC PEPTIDE 99.2 pg/mL (0-450)
[2016-11-19 01:16] LABS: TROPONIN I < 0.01 ng/mL
[2016-11-19] MEDS ORDERED: Albuterol-Ipratrop 3 mg / 0.5 (3 ml) UD IH PRN ×2 (02:46→06:53)
[2016-11-19 06:42] VITALS: RESP 20; BMI 28.1
[2016-11-19] MEDS: Budesonide 0.5 mg/2 ml Inhal Susp UD IH SCH ×2 (07:44→19:24)
--- NOTE | 2016-11-19 07:50 | RAD ---
HISTORY: Shortness of breath COMPARISON: 09/18/2016. FINDINGS: LUNGS: The lungs are well inflated and clear. PLEURA: No significant pleural effusion identified, no pneumothorax apparent. CARDIOVASCULAR: Normal. OSSEOUS STRUCTURES: No significant abnormalities. VISUALIZED UPPER ABDOMEN: Normal. OTHER FINDINGS: None. IMPRESSION: No active pulmonary disease.
[2016-11-19] MEDS ORDERED: Naproxen 550 mg Tab PO PRN ×2 (08:10→08:19)
[2016-11-19] MEDS: MethylPREDNISolone 40 mg Vial IVP SCH ×2 (09:28→21:01)
[2016-11-19 13:36] VITALS: PULSE 92
[2016-11-19] MEDS ORDERED: Digoxin 250 mcg (0.25 mg) Tab PO SCH (14:00)
--- NOTE | 2016-11-19 14:10 | CON ---
DATE: 11/19/2016 REASON FOR CONSULTATION: Chronic obstructive pulmonary disease. REFERRING PHYSICIAN: Tom Santana DO HISTORY OF PRESENT ILLNESS: The patient is a 60-year-old female with past medical history significant for chronic obstructive pulmonary disease, asthma, recurrent bronchitis, coronary artery disease, status post cardiac stents, pulmonary nodule/scar left upper lobe, who presents to [facility] with increasing shortness of breath at rest, dyspnea on exertion, and cough for the past 2 days. The patient denies sputum production. The patient also denies chest pain, coughing up of blood, or chest pain-made worse with deep respirations. There is no history of temperatures, chills, or infectious exposure. There is no history of night sweats, weight loss, or appetite change prior to the above events. No history of leg or calf pains. No history of syncope or diaphoresis. No history of recent travel or trauma. REVIEW OF SYSTEMS: No history of nausea, vomiting or diarrhea. No acute urinary symptoms. No new neurologic or musculoskeletal complaints. Rest of the review of systems is negative. ALLERGIES: No known allergies. SOCIAL HISTORY: Positive for extensive tobacco usage. No alcohol. FAMILY HISTORY: No inheritable diseases. HOME MEDICATIONS: Include albuterol HFA, Ultram, Naprosyn, Lopressor, Zestril, Lasix, Lanoxin, Flexeril, Plavix, Lipitor, and DuoNebs. PHYSICAL EXAMINATION GENERAL: The patient is not short of breath at rest. She is not using accessory muscles for breathing. VITAL SIGNS: Temperature is 98.2, pulse is 99, respirations 18/20, blood pressure 112/77, oxygen saturation on nasal cannula is 99%. HEENT: Normocephalic and atraumatic. NECK: No JVD. CARDIOVASCULAR: Positive S1 and S2. No S3. LUNGS: Decreased breath sounds at the bases. Minimal rhonchi. Minimal wheezing. EXTREMITIES: No clubbing, cyanosis, or edema. Calves are nontender to palpation. GASTROINTESTINAL: Abdomen is s oft, nontender, nondistended. Bowel sounds are positive. SKIN: No acute rash. NEUROLOGIC: Limited at the present time. PERTINENT LABORATORY DATA: Chest x-ray was done late last night,and reviewed. There are no official results on the chart. The x-ray does not seem significantly changed from the previous film. The patient also had a very recent CAT scan chest on 11/11/2016. On that CAT scan, there is a decrease in the mediastinal adenopathy. The left upper lobe opacity is more scar like in appearance. Dr. Hernandez notes that there is no evidence of discrete mass or nodule. CBC; white count 10.8, hemoglobin 13.4, hematocrit 41.2, platelets of 327. Complete metabolic profile was completely within normal limits. IMPRESSION: 1. Acute bronchitis. 2. Chronic obstructive pulmonary disease. 3. Asthma. 4. Coronary artery disease. 5. Pulmonary nodule/scar, left upper lobe. PLAN: The patient presents to [facility] with worsening pulmonary symptoms for the past 2 days. I did review the chest x-ray as above. The x-ray shows no change from the previous films. I have also reviewed the CAT scan of the chest-done very recently. The left upper lobe opacity is more scar-like in appearance. There is no discrete nodule or mass. In addition, the mediastinal adenopathy has decreased in size. On physical exam, the patient is in [id number] bronchospasm. There is no significant alveolar arterial gradient. Oxygen saturation on nasal cannula is 99%. I will start the patient on nebulizer treatments and low dose intravenous steroids for now. The patient does feel better and is clinically improved this morning. Additional pulmonary intervention will be based on the clinical status from the patient. I will discuss the above with Dr. Santana. Thank you very much for this pulmonary consultation. Alex Mcgill MD MTDSurjit
--- NOTE | 2016-11-19 16:46 | CARD ---
APPROVED REPORT EKG Measurement Heart [id number] <Conclusion> Poor data quality, interpretation may be adversely affected Normal sinus rhythm Left ventricular hypertrophy with repolarization abnormality Abnormal ECG
--- NOTE | 2016-11-19 18:15 | HP ---
HISTORY OF PRESENT ILLNESS: I know Lelo very well from multiple admissions to the hospital. She has been in my office since her last admission, not sure why, she has been asked to come multiple times. She is also seeing Dr. Mcgill, a lung doctor, and was supposed to have outpatient PET scans done for the lungs. She comes in with a couple of days' history of shortness of breath. She has been using breathing treatment at the outpatient and just getting symptomatic relief. She is a 60-year-old female, past medical history with NSTEMI, cardiac catheterization with stent, CHF, asthma, COPD, in and out of the hospital multiple times for heart and lung reasons, comes in to stay with shortness of breath, failed outpatient therapy. She is on observation status. She has CAD, asthma, bronchitis, COPD, emphysema, pneumonia history, musculoskeletal issues. She had a tubal ligation, urinary tract infections, coronary stents. FAMILY HISTORY: Hypertension in the family. SOCIAL HISTORY: She is a former smoker. No alcohol. No drug. ALLERGIES: NO KNOWN DRUG ALLERGIES. MEDICATIONS: She takes a lot of medications, albuterol, Flexeril, Lanoxin, Lasix, Lipitor, Lopressor, naproxen, Plavix, Ultram, Zestril. REVIEW OF SYSTEMS: No acute vision or hearing changes. No sore throat. No neck pain. Not tired. No fever. She is short of breath. She is coughing, not much sputum, occasional wheeze, no chest pain. No abdominal pain. No nausea, vomiting, constipation, or diarrhea. No problems urinating. The legs and arms are okay. She can move them with no complaints. Does have a headache from [id number], but no dizziness. No sweating. No anxiety. No depression. PHYSICAL EXAMINATION: GENERAL: She is well appearing, nontoxic, comfortable; alert and oriented x3. VITAL SIGNS: She has 97.7 temperature, 92 pulse, 20 respiratory rate, 120/79 blood pressure, 97% O2 saturations on oxygen. HEENT: Head is atraumatic and normocephalic. Extraocular muscles are intact. Pupils are equal and reactive to light and accommodation. Throat is moist. NECK: Supple. HEART: Regular rate. Normal S1 and S2. LUNGS: Decreased breath sounds bilaterally. Occasional wheeze is clearing from the Solu-Medrol she received in emergency room. ABDOMEN: Soft and nontender. Positive bowel sounds. No guarding. No rebound. No CVA tenderness. EXTREMITIES: Have no edema. NEUROLOGIC: GCS is 15. Cranial nerves II-XII grossly intact. Normal speech. Alert and oriented x3. Normal insight. SKIN: Warm and dry. No rashes. No ulcers. LYMPHATICS: Thyroid is midline. No palpably appreciated lymphadenopathy. DIAGNOSTIC STUDIES: Chest x-ray showed no acute disease. She had 141 sodium, potassium is 4, BUN is 15, creatinine 0.8, GFR is greater than 16, sugar is 99, calcium is 9.3, total bilirubin is 0.5, AST is 25, ALT is 27, alkaline phosphatase is 81, total protein is 7.5, lactate dehydrogenase is 619, total creatine kinase is 186, troponin 1 is less than 0.01, BNP is 99.2, albumin is 4.3, globulin is 3.2, pH is 7.33. She has 10.8 white count, 13.4 hemoglobin, 41.2 hematocrit with 327 platelets. IMPRESSION AND PLAN: She will be put back on her medications. She will be on intravenous Solu-Medrol. She will have a consult with Pulmonology, Dr. Mcgill sees her. She is on Solu-Medrol 40 q. 12 plus her regular medications. We will check for labs, give her oxygen. Hopefully, she will stay overnight in observation and discharge her tomorrow if she improves, that is my plan, to see her for acute chronic obstructive pulmonary disease if failed outpatient treatment. oTm Santana DO
[2016-11-20] MEDS: Albuterol-Ipratrop 3 mg / 0.5 (3 ml) UD IH SCH ×2 (06:08→07:30)
--- NOTE | 2016-11-20 07:30 | PN ---
DATE: 11/20/2016 SUBJECTIVE: The patient appears very comfortable at rest. She is not short of breath. PHYSICAL EXAMINATION VITAL SIGNS: Temperature 97.8, pulse on the monitor is 88, respiratory rate 18, blood pressure 130/70. Oxygen saturation on nasal cannula is 99%. HEENT: Normocephalic, atraumatic. NECK: No JVD. CARDIOVASCULAR: Positive S1 and S2. No S3. LUNGS: Clear bilaterally. EXTREMITIES: No clubbing, cyanosis, or edema. Calves are nontender to palpation. GASTROINTESTINAL: Abdomen is soft, nontender, nondistended. Bowel sounds are positive. SKIN: No acute rash. NEUROLOGIC: limited exam. IMPRESSION: 1. Acute bronchitis. 2. Chronic obstructive pulmonary disease. 3. Asthma, 4. Coronary artery disease. 5. Pulmonary nodule/scar, left upper lobe. PLAN: The patient appears very comfortable this morning. She is not short of breath at rest. She states she is feeling much, much better overall. On physical exam, her lungs are now clear. Oxygen saturation on nasal cannula is 99%. I will continue the current nebulizer treatments and change to oral steroids this morning. Clinical status of the patient is significantly improved. I will discuss the above with Dr. Santana. Alex Mcgill MD MTDD
[2016-11-20 07:36] LABS: MEAN CELL VOLUME 84.8 fL (80.0-105.0); MEAN CORPUSCULAR HEMOGLOBIN 27.7 pg (25.0-35.0); MEAN CORPUSCULAR HGB CONC 32.7 g/dl (31.0-37.0); MEAN PLATELET VOLUME 9.2 fl (7.0-11.0); RBC 4.33 10^6/uL (3.5-6.1); RED CELL DISTRIBUTION WIDTH 16.2 % (11.5-14.5); WHITE BLOOD COUNT 17.8 10^3/ul (4.5-11.0)
[2016-11-20] MEDS: Budesonide 0.5 mg/2 ml Inhal Susp UD IH SCH (07:45)
[2016-11-20 07:50] LABS: ALB/GLOB RATIO 1.4 (1.1-1.8); ALT/SGPT 23 U/L (7-56); AST/SGOT 28 U/L (15-39); BLOOD UREA NITROGEN 22 mg/dL (7-21); CALCIUM 9.3 mg/dL (8.4-10.5); GFR AFRICAN-AMERICAN > 60; GFR NON-AFRICAN AMERICAN > 60
[2016-11-20 08:15] VITALS: O2SAT 100
[2016-11-20 09:41] VITALS: BP 125/70; PULSE 85
[2016-11-20 10:01] VITALS: TEMP 97.6
--- NOTE | 2016-11-21 04:32 | DS ---
HISTORY OF PRESENT ILLNESS: I saw Lelo resting comfortably in her room, standing up, walking around. Nebulizer treatments are on. She is doing better. Breathing better. No chest pain or shortness of breath. She is laughing. She wants to go home. She wants to go back to work on Friday. She is going to go home on DuoNeb, Flexeril, Lanoxin, Lasix, Lipitor, Lopressor, and Plavix. She is on prednisone 40 for 2 days, 30 for 2 days, 20 for 2 days, 10 for 2 days, and stop. Pulmicort, Tylenol, Ultram as needed, and Zestril. PHYSICAL EXAMINATION: VITAL SIGNS: Temperature 97.8, pulse 91, blood pressure 130/70, respiratory rate 20, and O2 saturation 99% on room air. HEAD: Atraumatic and normocephalic. Throat is moist. NECK: Supple. HEART: Regular rate. LUNGS: Decreased breath sounds, but clear. No wheezes. No rhonchi. No rales. ABDOMEN: Soft and nontender. Positive bowel sounds. EXTREMITIES: With no edema. IMPRESSION: She is being seen by Pulmonary. I discussed this with Dr. Mcgill. He said she can go home if she improved nicely and to go on the prednisone as instructed earlier. She will be followed up in the office in about a week. She is here for acute bronchitis, chronic obstructive pulmonary disease, asthma, coronary artery disease, pulmonary nodule. She will also follow up with Dr. Mcgill and Dr. Santana next week. She understands followup, take medication, and she was here for those above reasons. Tom Santana DO MTDSurjit
== END 2016-11-20 12:51 | disposition home or self-care (01) ==
LOC: ED 22:54 → ERH 11-19 02:09 → 2RSO 11-19 05:23
PROVIDERS: ADMIT Family Medicine; ATTEND Family Medicine
DX: J44.0 Chronic obstructive pulmonary disease with (acute) lower respiratory infection (principal); J20.9 Acute bronchitis, unspecified; I50.9 Heart failure, unspecified; I25.10 Atherosclerotic heart disease of native coronary artery without angina pectoris; R91.1 Solitary pulmonary nodule; I25.2 Old myocardial infarction; Z87.891 Personal history of nicotine dependence; Z95.5 Presence of coronary angioplasty implant and graft; Z87.01 Personal history of pneumonia (recurrent); Z98.51 Tubal ligation status
CPT/HCPCS: 36415; 71010; 80053; 80162; 82550; 82803; 83615; 83880; 84484; 85025; 85027; 87040; 93005; 94640; 96374; 99285; G0378; J2920; J2930

== ENCOUNTER 2016-12-17 09:33 | Emergency (ER) | payer OTHER ==
[2016-12-17 09:34] VITALS: PULSE 92
[2016-12-17 09:50] VITALS: BMI 30.1
[2016-12-17 09:55] VITALS: TEMP 97.6
[2016-12-17 10:27] VITALS: RESP 18; O2SAT 96
[2016-12-17] MEDS: Albuterol-Ipratrop 3 mg / 0.5 (3 ml) UD IH SCH ×3 (10:34→11:15)
--- NOTE | 2016-12-17 10:44 | ED PDOC ---
Arrival/HPI - General Chief Complaint: Shortness Of Breath Time Seen by Provider: 12/17/16 10:22 Historian: Patient - History of Present Illness Narrative History of Present Illness (Text): 12/17/16 10:25 Lelo Denton is a 61 year old female, whose past medical history includes asthma , who presents to the emergency department complaining of wheezing and shortness of breath today. Patient states that these symptoms are identical to previous asthma exacerbation symptoms. Patient also notes that he has been suffering from a URI for that last few days. Patient has no other complaints at this time. PMD: Dr. Santana Time/Duration: 1-3 hours Symptom Onset: Gradual Symptom Course: Unchanged Context: Home Past Medical History - Provider Review Nursing Documentation Reviewed: Yes - Infectious Disease Hx of Infectious Diseases: None - Tetanus Immunization Tetanus Immunization: Unknown - Past Medical History Past Medical History: No Previous - Cardiac Hx Cardiac Disorders: Yes Hx AR: Yes (2014) Hx Pacemaker: No Other/Comment: stent placement - Pulmonary Hx Respiratory Disorders: Yes Hx Asthma: Yes Hx Bronchitis: Yes Hx Chronic Obstructive Pulmonary Disease (COPD): Yes Hx Emphysema: Yes Hx Pneumonia: Yes - Neurological Hx Paralysis: No - HEENT Hx HEENT Disorder: Yes (reading glasses) - Renal Hx Renal Disorder: No - Endocrine/Metabolic Hx Endocrine Disorders: No - Hematological/Oncological Hx Blood Transfusions: No Hx Blood Transfusion Reaction: No - Integumentary Hx Dermatological Disorder: No - Musculoskeletal/Rheumatological Hx Musculoskeletal Disorders: Yes - Gastrointestinal Hx Gastrointestinal Disorders: No - Genitourinary/Gynecological Hx Genitourinary Disorders: Yes (TUBAL LIGATION) Hx Urinary Tract Infection: Yes - Psychiatric Hx Emotional Abuse: No Hx Physical Abuse: No Hx Substance Use: No - Past Surgical History Past Surgical History: Non-Contributing - Surgical History Hx Cardiac Catheterization: Yes (stent) Hx Coronary Stent: Yes (10/19/2014) Other/Comment: HX OF TUBAL LIGATION - Anesthesia Hx Anesthesia: Yes Hx Anesthesia Reactions: No Hx Malignant Hyperthermia: No - Suicidal Assessment Feels Threatened In Home Enviroment: No Family/Social History - Physician Review Nursing Documentation Reviewed: Yes Family/Social History: No Known Family HX Smoking Status: Former Smoker Hx Alcohol Use: No Hx Substance Use: No Hx Substance Use Treatment: No Allergies/Home Meds Allergies/Adverse Reactions: Allergies No Known Allergies Allergy (Verified 12/17/16 09:51) Home Medications: Home Meds Medication Instructions Recorded Confirmed Albuterol HFA [Ventolin HFA 90 2 puff IH Q4 PRN 08/12/16 12/17/16 mcg/actuation (8 g)] Albuterol/Ipratropium [Duoneb 3 3 ml IH [id number] PRN 08/12/16 12/17/16 mg/0.5 mg (3 ml) UD] Fluticasone/Salmeterol [Advair 1 puff IH PRN PRN 12/17/16 12/17/16 250-50 Diskus] Physical Exam - Physical Exam Narrative Physical Exam (Text): - Review of Systems Constitutional: Normal. absent: Fatigue, Weight Change, Fevers Eyes: Normal ENT: Normal Respiratory: Wheezing and shortness of breath. absent: SOB, Cough, Sputum Cardiovascular: Normal absent: Chest pain, Palpitations, Syncope Gastrointestinal: Normal absent: Abdominal pain, Diarrhea, Nausea, Vomiting Genitourinary: Normal. absent: Dysuria, Frequency, Hematuria Musculoskeletal: Normal. absent: Arthralgias, Back Pain, Neck Pain Skin: Normal Neurological: Normal absent: Focal Weakness Endocrine: Normal Hemo/Lymphatic: Normal Psychiatric: Normal - Physical exam Patient appears age appropriate, speaking full sentences without difficulty. - Systems Exam Head: Present: Atraumatic, Normocephalic Pupils: Present: PERRL Extraocular Muscles: Present: EOMI Conjunctiva: Present: Normal Mouth: Present: Moist Mucous Membranes Neck: Present: Normal Range of Motion. No: MIDLINE TENDERNESS, Paraspinal Tenderness Respiratory/Chest: Expiratory wheezing in lungs. No: Respiratory Distress, Accessory Muscle Use, Tachypnic Cardiovascular: Present: Regular Rate and Rhythm, Normal S1, S2, Peripheral Pulses Present. No: Murmurs Abdomen: Present: Normal Bowel Sounds, No: Tenderness, Peritoneal Signs, Rebound, Guarding, Distention Back: Present: Normal Inspection. No: Midline Tenderness, Paraspinal Tenderness Upper Extremity: Present: Normal Inspection. No: Cyanosis, Edema Lower Extremity: Present: Normal Inspection. No: Edema Neurological: Present: GCS=15, Speech Normal, cranial nerves II through XII fully intact with no cerebellar abnormality, neuro-sensory fully intact. No focal neurological deficits. Skin: Present: Warm, Dry, Normal Color. No: Rashes Lymphatic: Present: OX3, NI, NC Psychiatric: Present: Alert, Oriented x 3, Normal Insight, Normal Concentration 12/17/16 10:50 Vital Signs Reviewed: Yes Vital Signs Temp Pulse Resp BP Pulse Ox 12/17/16 14:20 92 H 18 112/68 96 12/17/16 12:03 92 H 18 138/75 96 12/17/16 10:12 18 96 12/17/16 09:52 97.6 F 87 19 113/78 98 12/17/16 09:34 147 H 21 117/73 100 Temperature: Afebrile Blood Pressure: Normal Pulse: Tachycardic Respiratory Rate: Normal Appearance: Positive for: Well-Appearing, Non-Toxic, Comfortable Pain Distress: None Mental Status: Positive for: Alert and Oriented X 3 Medical Decision Making ED Course and Treatment: 12/17/16 10:25 Impression: 61 year old female complaining of wheezing and shortness of breath today. bilateral wheezing on examination. Pt does not appear in resp distress. Differential Diagnosis included but are not limited to: Asthma Exacerbation Plan: -- Chest X-ray -- Blood Culture -- Labs -- Duoneb and Solu-medrol -- Reassess and disposition Prior Visits: Notes and results from previous visits were reviewed. Patient last seen in the ED on 11/18/16 for 2 day duration of intermittent shortness of breath. Patient was admitted to hospitalist care for further evaluation. Progress Notes: 12/17/16 12:15 Chest X-ray read and interpreted by me, which shows no cardiomegaly, no pneumothorax, no effusions. 12/17/16 13:24 On reevaluation, patient's wheezing has almost resolved and she says that she feels much better. seen by Dr. Santana, states to dc home if pt feels better 12/17/16 14:40 on reeval, pt's lungs clear to ausc b/l 100%sat on RA pt states she feels much better states she feels comfortable being dc'd home with outpatient f/u Pt states she understands to return to the ER right away for new or worsening symptoms or for inability to f/u with PMD or specialist as instructed. Patient states that she fully agrees with and understands discharge instructions. States that she agrees with the plan and disposition. Verbalized and repeated discharge instructions and plan. I have given the patient opportunity to ask any additional questions. - Lab Interpretations Lab Results: 12/17/16 10:52 12/17/16 11:30 Lab Results 12/17/16 11:30: Sodium 141, Potassium 4.4, Chloride 103, Carbon Dioxide 26, Anion Gap 16, BUN 12, Creatinine 0.9, Est GFR ( Amer) > 60, Est GFR (Non- Af Amer) > 60, Random Glucose 92, Calcium 10.0, Total Bilirubin 0.3, AST 29, ALT 30, Alkaline Phosphatase 76, Total Protein 7.5, Albumin 4.7, Globulin 2.8, Albumin/Globulin Ratio 1.7 12/17/16 10:52: WBC 7.6 D, RBC 4.82, Hgb 13.3, Hct 41.4, MCV 85.9, MCH 27.6, MCHC 32.1, RDW 16.5 H, Plt Count 310, MPV 9.8, Gran % 53.9, Lymph % (Auto) 33.9 , [place] % (Auto) 8.7 H, Eos % (Auto) 3.2, Baso % (Auto) 0.3, Gran # 4.10, Lymph # 2.6, [place] # 0.7 H, Eos # 0.2, Baso # 0.02 I have reviewed the lab results: Yes - RAD Interpretation Radiology Orders: 12/17/16 10:23 CHEST PORTABLE [RAD] Stat - Medication Orders Current Medication Orders: Discontinued Medications Albuterol/Ipratropium (Duoneb 3 Mg/0.5 Mg (3 Ml) Ud) 3 ml IH Q15M JEANCARLOS Stop: 12/17/16 11:01 Last Admin: 12/17/16 11:15 Dose: 3 ml Ibuprofen (Motrin Tab) 600 mg PO STAT STA Stop: 12/17/16 14:19 Methylprednisolone (Solu-Medrol) 125 mg IVP STAT STA Stop: 12/17/16 10:23 Last Admin: 12/17/16 10:34 Dose: 125 mg - Scribe Statement The provider has reviewed the documentation as recorded by the Ejibdat Ferrara Provider Scribe Attestation: All medical record entries made by the Scribe were at my direction and personally dictated by me. I have reviewed the chart and agree that the record accurately reflects my personal performance of the history, physical exam, medical decision making, and the department course for this patient. I have also personally directed, reviewed, and agree with the discharge instructions and disposition. Disposition/Present on Arrival - Present on Arrival Any Indicators Present on Arrival: No History of DVT/PE: No History of Uncontrolled Diabetes: No Urinary Catheter: No History of Decub. Ulcer: No History Surgical Site Infection Following: None - Disposition Have Diagnosis and Disposition been Completed?: Yes Diagnosis: Asthma exacerbation Disposition: HOME/ ROUTINE Disposition Time: 14:46 Patient Plan: Discharge Condition: GOOD Discharge Instructions (ExitCare): Asthma (ED) Additional Instructions: PLEASE RETURN TO THE EMERGENCY DEPARTMENT FOR NEW OR WORSENING SYMPTOMS. RETURN RIGHT AWAY IF YOU CANNOT FOLLOW UP WITH YOUR PRIMARY CARE DOCTOR, CLINIC, OR SPECIALIST IN 1-2 DAYS. Prescriptions: Albuterol HFA [Ventolin HFA 90 mcg/actuation (8 g)] 2 puff IH Q4 #1 puff Azithromycin [Zithromax] 250 mg PO DAILY #1 packet predniSONE [predniSONE Tab] 60 mg PO DAILY #12 tab Referrals: PCP,NO [Primary Care Provider] - Follow up with primary Tmo Santana DO [Staff Provider] - Follow up with primary Alex Mcgill MD [Staff Provider] - Follow up with primary Forms: [employer] (Bhutanese), WORK NOTE
[2016-12-17 11:03] LABS: BASO # 0.02 K/mm3 (0.0-2.0); BASO % 0.3 % (0.0-3.0); EOS # 0.2 (0.0-0.7); EOS % 3.2 % (1.5-5.0); GRAN # 4.1 (1.4-6.5); GRAN % 53.9 % (50.0-68.0); HEMATOCRIT 41.4 % (36.0-48.0); LYMPH # 2.6 (1.2-3.4); LYMPH % 33.9 % (22.0-35.0); MEAN CELL VOLUME 85.9 fl (80.0-105.0); MEAN CORPUSCULAR HEMOGLOBIN 27.6 pg (25.0-35.0); MEAN CORPUSCULAR HGB CONC 32.1 g/dl (31.0-37.0); MEAN PLATELET VOLUME 9.8 fl (7.0-11.0); MONO # 0.7 (0.1-0.6); MONO % 8.7 % (1.0-6.0); RED CELL DISTRIBUTION WIDTH 16.5 % (11.5-14.5); WHITE BLOOD COUNT 7.6 10^3/ul (4.5-11.0)
[2016-12-17 11:46] LABS: ALB/GLOB RATIO 1.7 (1.1-1.8); ALKALINE PHOSPHATASE 76 U/L (38-133); ALT/SGPT 30 U/L (7-56); AST/SGOT 29 U/L (15-39); BILIRUBIN,TOTAL 0.3 mg/dL (0.2-1.3); BLOOD UREA NITROGEN 12 mg/dL (7-21); CARBON DIOXIDE 26 mmol/L (21-33); CHLORIDE 103 mmol/L (98-107); GFR AFRICAN-AMERICAN > 60; GLUCOSE,RANDOM 92 mg/dL (70-110); POTASSIUM 4.4 mmol/L (3.6-5.0); SODIUM 141 mmol/L (132-148); TOTAL PROTEIN 7.5 g/dL (5.8-8.3)
[2016-12-17 12:03] VITALS: PULSE 92
[2016-12-17 14:21] VITALS: BP 112/68
--- NOTE | 2016-12-17 15:09 | RAD ---
HISTORY: cough COMPARISON: 11/18/2016 FINDINGS: LUNGS: No active pulmonary disease. PLEURA: No significant pleural effusion identified, no pneumothorax apparent. CARDIOVASCULAR: Normal. OSSEOUS STRUCTURES: Old healed left (probable) 6 posterolateral rib fracture VISUALIZED UPPER ABDOMEN: Normal. OTHER FINDINGS: None. IMPRESSION: No active disease. Old healed left rib fracture
== END 2016-12-17 15:10 | disposition home or self-care (01) ==
LOC: ED 09:33
DX: J45.901 Unspecified asthma with (acute) exacerbation (principal)
CPT/HCPCS: 71010; 80053; 85025; 87040; 96374; 99284; J2930

== ENCOUNTER 2017-01-17 23:03 | Emergency (ER) | payer OTHER ==
[2017-01-17 23:03] VITALS: PULSE 92; BMI 30.1
[2017-01-17 23:14] VITALS: BP 149/78; PULSE 95; TEMP 99.1
[2017-01-17] MEDS ORDERED: Albuterol-Ipratrop 3 mg / 0.5 (3 ml) UD ONE (23:18)
[2017-01-17] MEDS ORDERED: Albuterol-Ipratrop 3 mg / 0.5 (3 ml) UD IH STA ×3 (23:26→23:28)
--- NOTE | 2017-01-17 23:27 | ED PDOC ---
Arrival/HPI - General Chief Complaint: Shortness Of Breath Time Seen by Provider: 01/17/17 23:17 Historian: Patient - Critical Care Critical Care Minutes: 30 minutes - History of Present Illness Narrative History of Present Illness (Text): 01/17/17 23:26 61 year old female, whose past medical history includes asthma, presents to the emergency department complaining of intermittent shortness of breath associated with coughing today. Patient states she's well known to the emergency department due to her reoccurring asthma exacerbation symptoms. She reports the symptoms occurred after waking up and getting ready for work today. She also states that her oldest daughter is sick with a bad cough. Patient denies being on steroids and having any allergies. Patient denies any fever, chills, chest pain, nausea, vomiting, diarrhea, abdominal pain, urinary symptoms, back pain, neck pain, headache, dizziness, or any other complaints. Patient was a smoker and is currently on mechanical pen. Dr. Santana Time/Duration: Other (today) Symptom Onset: Sudden Symptom Course: Unchanged Context: Work Past Medical History - Provider Review Nursing Documentation Reviewed: Yes - Infectious Disease Hx of Infectious Diseases: None - Tetanus Immunization Tetanus Immunization: Unknown - Past Medical History Past Medical History: No Previous - Cardiac Hx Cardiac Disorders: Yes Hx [place]: Yes (2014) Hx Pacemaker: No Other/Comment: stent placement - Pulmonary Hx Respiratory Disorders: Yes Hx Asthma: Yes Hx Bronchitis: Yes Hx Chronic Obstructive Pulmonary Disease (COPD): Yes Hx Emphysema: Yes Hx Pneumonia: Yes - Neurological Hx Paralysis: No - HEENT Hx HEENT Disorder: Yes (reading glasses) - Renal Hx Renal Disorder: No - Endocrine/Metabolic Hx Endocrine Disorders: No - Hematological/Oncological Hx Blood Transfusions: No Hx Blood Transfusion Reaction: No - Integumentary Hx Dermatological Disorder: No - Musculoskeletal/Rheumatological Hx Musculoskeletal Disorders: Yes - Gastrointestinal Hx Gastrointestinal Disorders: No - Genitourinary/Gynecological Hx Genitourinary Disorders: Yes (TUBAL LIGATION) Hx Urinary Tract Infection: Yes - Psychiatric Hx Emotional Abuse: No Hx Physical Abuse: No Hx Substance Use: No - Past Surgical History Past Surgical History: Non-Contributing - Surgical History Hx Cardiac Catheterization: Yes (stent) Hx Coronary Stent: Yes (10/19/2014) Other/Comment: HX OF TUBAL LIGATION - Anesthesia Hx Anesthesia: Yes Hx Anesthesia Reactions: No Hx Malignant Hyperthermia: No - Suicidal Assessment Feels Threatened In Home Enviroment: No Family/Social History - Physician Review Nursing Documentation Reviewed: Yes Family/Social History: No Known Family HX Smoking Status: Former Smoker Hx Alcohol Use: No Hx Substance Use: No Hx Substance Use Treatment: No Allergies/Home Meds Allergies/Adverse Reactions: Allergies No Known Allergies Allergy (Verified 12/17/16 09:51) Home Medications: Home Meds Medication Instructions Recorded Confirmed Albuterol HFA [Ventolin HFA 90 2 puff IH Q4 PRN 08/12/16 12/17/16 mcg/actuation (8 g)] Albuterol/Ipratropium [Duoneb 3 3 ml IH [id number] PRN 08/12/16 12/17/16 mg/0.5 mg (3 ml) UD] Fluticasone/Salmeterol [Advair 1 puff IH PRN PRN 12/17/16 12/17/16 250-50 Diskus] Review of Systems - Physician Review All systems were reviewed & negative as marked: Yes - Review of Systems Constitutional: absent: Fevers, Other (Chills) Respiratory: SOB, Cough Cardiovascular: absent: Chest Pain Gastrointestinal: absent: Abdominal Pain, Diarrhea, Nausea, Vomiting Genitourinary Female: absent: Dysuria, Frequency, Hematuria Musculoskeletal: absent: Back Pain, Neck Pain Neurological: absent: Headache, Dizziness Physical Exam Vital Signs Reviewed: Yes Vital Signs Temp Pulse Resp BP Pulse Ox 01/17/17 23:26 24 100 01/17/17 23:12 99.1 F 95 H 22 149/78 99 Temperature: Afebrile Blood Pressure: Normal Pulse: Regular Respiratory Rate: Normal Appearance: Positive for: Well-Appearing, Non-Toxic, Comfortable Pain Distress: None Mental Status: Positive for: Alert and Oriented X 3 - Systems Exam Head: Present: Atraumatic, Normocephalic Pupils: Present: PERRL Extroacular Muscles: Present: EOMI Conjunctiva: Present: Normal Mouth: Present: Moist Mucous Membranes Neck: Present: Normal Range of Motion Respiratory/Chest: Present: Clear to Auscultation, Wheezes (Mild expiratory wheezing). No: Respiratory Distress, Accessory Muscle Use Cardiovascular: Present: Regular Rate and Rhythm, Normal S1, S2. No: Murmurs Abdomen: Present: Normal Bowel Sounds. No: Tenderness, Distention, Peritoneal Signs Back: Present: Normal Inspection Upper Extremity: Present: Normal Inspection. No: Cyanosis, Edema Lower Extremity: Present: Normal Inspection. No: Edema Neurological: Present: GCS=15, CN II-XII Intact, Speech Normal Skin: Present: Warm, Dry, Normal Color. No: Rashes Psychiatric: Present: Alert, Oriented x 3, Normal Insight, Normal Concentration Medical Decision Making ED Course and Treatment: 01/17/17 23:26 Impression: 61 year old female presents complaining of intermittent shortness of breath associated with a cough that began today. Plan: -- Labs -- Chest X-ray -- Duoneb -- Magnesium Sulfate 2 gm Sodium Chloride IVPB -- SOLU-Medrol -- Reassess and disposition Prior Visits: Notes and results from previous visits were reviewed. On 12/17/16 patient came in complaining of wheezing and shortness of breath associate with her asthma today. Progress Notes: 01/18/17 00:12 CXR Impression: As read by me, no acute processes. 01/18/17 00:30 On reevaluation the patient feels better and is in no acute distress. I have discussed the results and plan with the patient, who expresses understanding. Patient given the opportunity to ask question, all questions were answered and there is agreement with the plan to discharge. Patient is stable for discharge. Patient was instructed to follow up with physician/clinic in 1-2 days or return if symptoms persist/worsen or new concerning symptoms arise. - Lab Interpretations Lab Results: 01/17/17 23:50 01/17/17 23:50 Lab Results 01/17/17 23:50: Sodium 147, Potassium 3.9, Chloride 113 H, Carbon Dioxide 27, Anion Gap 11, BUN 13, Creatinine 1.0, Est GFR ( Amer) > 60, Est GFR (Non- Af Amer) 56, Random Glucose 102, Calcium 8.7, Total Bilirubin 0.3, AST 27, ALT 23, Alkaline Phosphatase 60, Total Protein 6.0, Albumin 3.6, Globulin 2.5, Albumin/Globulin Ratio 1.4 01/17/17 23:50: WBC 7.4, RBC 4.05, Hgb 11.2 L D, Hct 35.4 L, MCV 87.4, MCH 27.7 , MCHC 31.6, RDW 17.2 H, Plt Count 308, MPV 9.6, Gran % 50.2, Lymph % (Auto) 37.5 H, Mon[place] % (Auto) 9.6 H, Eos % (Auto) 2.4, Baso % (Auto) 0.3, Gran # 3.71, Lymph # 2.8, Monona # 0.7 H, Eos # 0.2, Baso # 0.02 I have reviewed the lab results: Yes - RAD Interpretation Radiology Orders: 01/17/17 23:26 CHEST PORTABLE [RAD] Stat - Medication Orders Current Medication Orders: Discontinued Medications Albuterol/Ipratropium (Duoneb 3 Mg/0.5 Mg (3 Ml) Ud) Confirm Administered Dose 9 ml .ROUTE .STK-MED ONE Stop: 01/17/17 23:19 Last Admin: 01/17/17 23:41 Dose: Albuterol/Ipratropium (Duoneb 3 Mg/0.5 Mg (3 Ml) Ud) 3 ml IH STAT STA Stop: 01/17/17 23:27 Last Admin: 01/17/17 23:26 Dose: 3 ml Albuterol/Ipratropium (Duoneb 3 Mg/0.5 Mg (3 Ml) Ud) 3 ml IH STAT STA Stop: 01/17/17 23:29 Last Admin: 01/17/17 23:40 Dose: 3 ml Albuterol/Ipratropium (Duoneb 3 Mg/0.5 Mg (3 Ml) Ud) 3 ml IH STAT STA Stop: 01/17/17 23:29 Magnesium Sulfate 2 gm/ Sodium (Chloride) 104 mls @ 102 mls/hr IVPB ONCE ONE Stop: 01/18/17 00:29 Last Admin: 01/17/17 23:55 Dose: 102 mls/hr eMAR Start Stop Document 01/17/17 23:55 SC (Rec: 01/17/17 23:56 SC [id number]) Intravenous Solution Start Date 01/17/17 Start Time 23:55 End Date 01/18/17 End time 00:57 Total Infusion Time 62 Ibuprofen (Motrin Tab) 600 mg PO STAT STA Stop: 01/17/17 23:56 Last Admin: 01/18/17 00:04 Dose: 600 mg MAR Pain/Vitals Document 01/18/17 00:04 SC (Rec: 01/18/17 00:04 [id number] Pain Reassessment Is This A Pain ReAssessment? No Sleep Is patient sleeping during reassessment? No Presence of Pain Presence of Pain Yes Pain Scale Used Pain Scale Used Numeric Location Upper or Lower Lower Pain Location Body Site Back Description Constant Intensity 6 Methylprednisolone (Solu-Medrol) 125 mg IVP STAT STA Stop: 01/17/17 23:27 Last Admin: 01/17/17 23:55 Dose: 125 mg IVP Administration Document 01/17/17 23:55 SD (Rec: 01/17/17 23:55 [id number] Charges for Administration # of IVP Administrations 1 - Scribe Statement The provider has reviewed the documentation as recorded by the Scribe Ladi Parikh All medical record entries made by the Scribe were at my direction and personally dictated by me. I have reviewed the chart and agree that the record accurately reflects my personal performance of the history, physical exam, medical decision making, and the department course for this patient. I have also personally directed, reviewed, and agree with the discharge instructions and disposition. Disposition/Present on Arrival - Present on Arrival Any Indicators Present on Arrival: No History of DVT/PE: No History of Uncontrolled Diabetes: No Urinary Catheter: No History of Decub. Ulcer: No History Surgical Site Infection Following: None - Disposition Have Diagnosis and Disposition been Completed?: Yes Diagnosis: Asthma exacerbation Disposition: HOME/ ROUTINE Disposition Time: 00:35 Condition: IMPROVED Discharge Instructions (ExitCare): Asthma (ED) Additional Instructions: Thank you for letting us take care of you today. Your provider was Dr. Altamirano. You were treated for asthma. The emergency medical care you received today was directed at your acute symptoms. If you were prescribed any medication , please fill it and take as directed. It may take several days for your symptoms to resolve. Return to the Emergency Department if your symptoms worsen , do not improve, or if you have any other problems. Please contact your doctor or call one of the physicians/clinics you have been referred to that are listed on the Patient Visit Information form that is included in your discharge packet. Bring any paperwork you were given at discharge with you along with any medications you are taking to your follow up visit. Our treatment cannot replace ongoing medical care by a primary care provider (PCP) outside of the emergency department. Thank you for allowing the [facility] team to be part of your care today. Follow up with your primary physician in 2-3 days for re-evaluation and further management. Prescriptions: Albuterol 0.083% [Albuterol 0.083% Inhal Yoly (2.5 mg/3 ml) UD] 2.5 mg IH Q6 PRN #1 unit PRN Reason: asthma Atorvastatin [Lipitor] 40 mg PO DAILY #30 tab Furosemide [Lasix] 40 mg PO DAILY #30 tablet predniSONE [Prednisone] 40 mg PO DAILY #10 tab Referrals: Tom Santana DO [Primary Care Provider] - Follow up with primary Forms: [employer] (Wolof)
[2017-01-17] MEDS ORDERED: Magnesium Sulfate 2 GM in Sodium Chloride 0.9% 100 ML IVPB ONE (23:28)
[2017-01-18 00:19] LABS: BASO # 0.02 K/mm3 (0.0-2.0); BASO % 0.3 % (0.0-3.0); EOS # 0.2 (0.0-0.7); EOS % 2.4 % (1.5-5.0); GRAN # 3.71 (1.4-6.5); GRAN % 50.2 % (50.0-68.0); HEMATOCRIT 35.4 % (36.0-48.0); LYMPH # 2.8 (1.2-3.4); LYMPH % 37.5 % (22.0-35.0); MEAN CELL VOLUME 87.4 fl (80.0-105.0); MEAN CORPUSCULAR HEMOGLOBIN 27.7 pg (25.0-35.0); MEAN CORPUSCULAR HGB CONC 31.6 g/dl (31.0-37.0); MEAN PLATELET VOLUME 9.6 fl (7.0-11.0); MONO # 0.7 (0.1-0.6); MONO % 9.6 % (1.0-6.0); RED CELL DISTRIBUTION WIDTH 17.2 % (11.5-14.5); WHITE BLOOD COUNT 7.4 10^3/ul (4.5-11.0)
[2017-01-18 00:31] LABS: ALB/GLOB RATIO 1.4 (1.1-1.8); ALKALINE PHOSPHATASE 60 U/L (38-126); ALT/SGPT 23 U/L (7-56); AST/SGOT 27 U/L (14-36); BILIRUBIN,TOTAL 0.3 mg/dL (0.2-1.3); BLOOD UREA NITROGEN 13 mg/dL (7-21); CALCIUM 8.7 mg/dL (8.4-10.5); CARBON DIOXIDE 27 mmol/L (21-33); CHLORIDE 113 mmol/L (98-107); GFR AFRICAN-AMERICAN > 60; GLUCOSE,RANDOM 102 mg/dL (70-110); POTASSIUM 3.9 mmol/L (3.6-5.0); SODIUM 147 mmol/L (132-148)
[2017-01-18 02:24] VITALS: RESP 24; O2SAT 100
--- NOTE | 2017-01-18 08:32 | RAD ---
HISTORY: r/o infiltrate COMPARISON: 12/17/2016 FINDINGS: LUNGS: The lungs are well inflated and clear. PLEURA: No significant pleural effusion identified, no pneumothorax apparent. CARDIOVASCULAR: Normal. OSSEOUS STRUCTURES: No significant abnormalities. There is an old fracture deformity in the left posterolateral 7th rib. VISUALIZED UPPER ABDOMEN: Normal. OTHER FINDINGS: None. IMPRESSION: No active pulmonary disease.
== END 2017-01-18 01:15 | disposition home or self-care (01) ==
LOC: ED 23:03
DX: J45.901 Unspecified asthma with (acute) exacerbation (principal); Z87.891 Personal history of nicotine dependence
CPT/HCPCS: 71010; 80053; 85025; 96365; 96375; 99284; J2930; J3475

== ENCOUNTER 2017-02-18 23:01 | Emergency (ER) | payer OTHER ==
[2017-02-18 23:02] VITALS: PULSE 92
[2017-02-18 23:10] VITALS: BMI 29.0
[2017-02-18 23:14] VITALS: BP 150/89; PULSE 98; RESP 20; TEMP 98.3
--- NOTE | 2017-02-18 23:20 | ED PDOC ---
Arrival/HPI - General Time Seen by Provider: 02/18/17 23:06 Historian: Patient - History of Present Illness Narrative History of Present Illness (Text): 02/18/17 23:16 Lelo Denton is a 61 year old female, whose past medical history includes heart murmur, NSTEMI, cardiac catheterization with stenting, hypertension, CHF, COPD, asthma, bronchitis, emphysema, and pneumonia, who presents to the ED complaining of shortness of breath. Patient states she has been experiencing shortness of breath for the past few days, progressively worsening throughout today. Patient denies any fever, chills, chest pain, abdominal pain, nausea, vomiting, diarrhea, urinary symptoms, back pain, neck pain, headache, dizziness , or any other complaints. PMD: Dr. Santana Time/Duration: Other (few days) Symptom Onset: Gradual Symptom Course: Unchanged Activities at Onset: Light Context: Home Past Medical History - Provider Review Nursing Documentation Reviewed: Yes - Infectious Disease Hx of Infectious Diseases: None - Tetanus Immunization Tetanus Immunization: Unknown - Past Medical History Past Medical History: No Previous - Cardiac Hx Cardiac Disorders: Yes Hx [place]: Yes (2014) Hx Pacemaker: No Other/Comment: stent placement - Pulmonary Hx Respiratory Disorders: Yes Hx Asthma: Yes Hx Bronchitis: Yes Hx Chronic Obstructive Pulmonary Disease (COPD): Yes Hx Emphysema: Yes Hx Pneumonia: Yes - Neurological Hx Paralysis: No - HEENT Hx HEENT Disorder: Yes (reading glasses) - Renal Hx Renal Disorder: No - Endocrine/Metabolic Hx Endocrine Disorders: No - Hematological/Oncological Hx Blood Transfusions: No Hx Blood Transfusion Reaction: No - Integumentary Hx Dermatological Disorder: No - Musculoskeletal/Rheumatological Hx Musculoskeletal Disorders: Yes - Gastrointestinal Hx Gastrointestinal Disorders: No - Genitourinary/Gynecological Hx Genitourinary Disorders: Yes (TUBAL LIGATION) Hx Urinary Tract Infection: Yes - Psychiatric Hx Emotional Abuse: No Hx Physical Abuse: No Hx Substance Use: No - Past Surgical History Past Surgical History: Non-Contributing - Surgical History Hx Cardiac Catheterization: Yes (stent) Hx Coronary Stent: Yes (10/19/2014) Other/Comment: HX OF TUBAL LIGATION - Anesthesia Hx Anesthesia: Yes Hx Anesthesia Reactions: No Hx Malignant Hyperthermia: No - Suicidal Assessment Feels Threatened In Home Enviroment: No Family/Social History - Physician Review Nursing Documentation Reviewed: Yes Family/Social History: Unknown Family HX Smoking Status: Former Smoker Hx Alcohol Use: No Hx Substance Use: No Hx Substance Use Treatment: No Allergies/Home Meds Allergies/Adverse Reactions: Allergies No Known Allergies Allergy (Verified 02/18/17 23:09) Home Medications: Home Meds Medication Instructions Recorded Confirmed Albuterol HFA [Ventolin HFA 90 2 puff IH Q4 PRN 08/12/16 12/17/16 mcg/actuation (8 g)] Albuterol/Ipratropium [Duoneb 3 3 ml IH [id number] PRN 08/12/16 12/17/16 mg/0.5 mg (3 ml) UD] Fluticasone/Salmeterol [Advair 1 puff IH PRN PRN 12/17/16 12/17/16 250-50 Diskus] Review of Systems - Physician Review All systems were reviewed & negative as marked: Yes - Review of Systems Constitutional: Normal. absent: Fevers Eyes: Normal ENT: Normal Respiratory: SOB Cardiovascular: Normal. absent: Chest Pain Gastrointestinal: Normal. absent: Abdominal Pain, Diarrhea, Nausea, Vomiting Genitourinary Female: Normal. absent: Dysuria, Frequency, Hematuria, Urine Output Changes Musculoskeletal: Normal. absent: Back Pain, Neck Pain Skin: Normal. absent: Rash Neurological: Normal. absent: Headache, Dizziness Endocrine: Normal Hemo/Lymphatic: Normal Psychiatric: Normal Physical Exam Vital Signs Reviewed: Yes Vital Signs Temp Pulse Resp BP Pulse Ox 02/18/17 23:24 20 98 02/18/17 23:13 98.3 F 99 H 20 158/85 H 98 Temperature: Afebrile Blood Pressure: Normal Pulse: Regular Respiratory Rate: Normal Appearance: Positive for: Well-Appearing, Non-Toxic, Comfortable Pain Distress: None Mental Status: Positive for: Alert and Oriented X 3 - Systems Exam Head: Present: Atraumatic, Normocephalic Pupils: Present: PERRL Extroacular Muscles: Present: EOMI Conjunctiva: Present: Normal Mouth: Present: Moist Mucous Membranes Neck: Present: Normal Range of Motion Respiratory/Chest: Present: Wheezes. No: Respiratory Distress, Accessory Muscle Use Cardiovascular: Present: Regular Rate and Rhythm, Normal S1, S2. No: Murmurs Abdomen: Present: Normal Bowel Sounds. No: Tenderness, Distention, Peritoneal Signs Back: Present: Normal Inspection Upper Extremity: Present: Normal Inspection. No: Cyanosis, Edema Lower Extremity: Present: Normal Inspection. No: Edema Neurological: Present: GCS=15, CN II-XII Intact, Speech Normal Skin: Present: Warm, Dry, Normal Color. No: Rashes Psychiatric: Present: Alert, Oriented x 3, Normal Insight, Normal Concentration Medical Decision Making ED Course and Treatment: 02/18/17 23:16 Impression: 61 year old female complaining of shortness of breath for a few days. Differential Diagnosis included but are not limited to: asthma vs. COPD vs. CHF vs. pneumonia Plan: -- EKG -- CXR -- Labs, cardiac enzymes, BNP -- Duoneb -- Solu-medrol -- Reassess and disposition Prior Visits: Notes and results from previous visits were reviewed. On 01/17/2017, pt was seen in the Emergency department for shortness of breath and cought. Pt was d/c home. Progress Notes: Reviewed EKG, NSR at 88 bpm. Non-specific ST/T wave changes. 02/19/17 00:07 Reviewed radiology, CXR shows no acute processes. 02/19/17 01:25 On reevaluation the patient feels better and is in no acute distress. I have discussed the results and plan with the patient, who expresses understanding. Patient given the opportunity to ask question, all questions were answered and there is agreement with the plan to discharge the patient home. Patient is stable for discharge. Patient was instructed to follow up with physician/clinic in 1-2 days or return if symptoms persist/worsen or new concerning symptoms arise. - Lab Interpretations Lab Results: 02/18/17 23:38 02/18/17 23:38 Lab Results 02/18/17 23:38: Sodium 143, Potassium 3.6, Chloride 105, Carbon Dioxide 30, Anion Gap 12, BUN 18, Creatinine 0.8, Est GFR ( Amer) > 60, Est GFR (Non- Af Amer) > 60, Random Glucose 117 H, Calcium 9.1, Total Bilirubin 0.4, AST 32, ALT 24, Alkaline Phosphatase 64, Lactate Dehydrogenase 443, Total Creatine Kinase 140, Troponin I < 0.01, NT-Pro-B Natriuret Pep 71.8, Total Protein 6.3, Albumin 3.9, Globulin 2.4, Albumin/Globulin Ratio 1.6 02/18/17 23:38: WBC 10.8 D, RBC 4.23, Hgb 11.9 L, Hct 37.2, MCV 87.9, MCH 28.1 , MCHC 32.0, RDW 17.1 H, Plt Count 302, MPV 9.1, Gran % 65.8, Lymph % (Auto) 26.0, Bledsoe % (Auto) 6.0, Eos % (Auto) 1.9, Baso % (Auto) 0.3, Gran # 7.12 H, Lymph # 2.8, Bledsoe # 0.7 H, Eos # 0.2, Baso # 0.03 I have reviewed the lab results: Yes - RAD Interpretation Radiology Orders: 02/18/17 23:26 CHEST PORTABLE [RAD] Stat Cnc Technician: ED Physician - EKG Interpretation Interpreted by ED Physician: Yes Type: 12 lead EKG - Medication Orders Current Medication Orders: Discontinued Medications Albuterol/Ipratropium (Duoneb 3 Mg/0.5 Mg (3 Ml) Ud) 3 ml IH Q15M JEANCARLOS Stop: 02/19/17 00:01 Last Admin: 02/19/17 00:12 Dose: 3 ml Levofloxacin (Levaquin) 500 mg PO STAT STA Stop: 02/19/17 01:05 Last Admin: 02/19/17 01:24 Dose: 500 mg Methylprednisolone (Solu-Medrol) 125 mg IVP STAT STA Stop: 02/18/17 23:23 Last Admin: 02/18/17 23:49 Dose: 125 mg IVP Administration Document 02/18/17 23:49 SS (Rec: 02/18/17 23:49 SS [id number]) Charges for Administration # of IVP Administrations 1 - Scribe Statement The provider has reviewed the documentation as recorded by the Ejibdat Cortez All medical record entries made by the Ejibdat were at my direction and personally dictated by me. I have reviewed the chart and agree that the record accurately reflects my personal performance of the history, physical exam, medical decision making, and the department course for this patient. I have also personally directed, reviewed, and agree with the discharge instructions and disposition. Disposition/Present on Arrival - Present on Arrival Any Indicators Present on Arrival: No History of DVT/PE: No History of Uncontrolled Diabetes: No Urinary Catheter: No History Surgical Site Infection Following: None - Disposition Have Diagnosis and Disposition been Completed?: Yes Diagnosis: COPD exacerbation Disposition: HOME/ ROUTINE Disposition Time: :25 Condition: GOOD Discharge Instructions (ExitCare): COPD (Chronic Obstructive Pulmonary Disease ) (ED) Prescriptions: Fluticasone/Salmeterol 250/50 [Advair Diskus] 1 dsk IH BID #1 inh levoFLOXacin [Levaquin] 500 mg PO DAILY #10 tab predniSONE [predniSONE Tab] 60 mg PO DAILY #12 tab Forms: [employer] (Sinhala)
[2017-02-18 23:26] VITALS: O2SAT 98
[2017-02-18] MEDS ORDERED: Albuterol-Ipratrop 3 mg / 0.5 (3 ml) UD ONE (23:29)
[2017-02-18] MEDS: Albuterol-Ipratrop 3 mg / 0.5 (3 ml) UD IH SCH ×2 (23:41→23:58)
[2017-02-18 23:49] LABS: BASO # 0.03 K/mm3 (0.0-2.0); BASO % 0.3 % (0.0-3.0); EOS # 0.2 (0.0-0.7); EOS % 1.9 % (1.5-5.0); GRAN # 7.12 (1.4-6.5); GRAN % 65.8 % (50.0-68.0); HEMATOCRIT 37.2 % (36.0-48.0); LYMPH # 2.8 (1.2-3.4); MEAN CELL VOLUME 87.9 fl (80.0-105.0); MEAN CORPUSCULAR HEMOGLOBIN 28.1 pg (25.0-35.0); MEAN PLATELET VOLUME 9.1 fl (7.0-11.0); MONO # 0.7 (0.1-0.6); RED CELL DISTRIBUTION WIDTH 17.1 % (11.5-14.5); WHITE BLOOD COUNT 10.8 10^3/ul (4.5-11.0)
[2017-02-18 23:59] LABS: ALB/GLOB RATIO 1.6 (1.1-1.8); ALKALINE PHOSPHATASE 64 U/L (38-126); ALT/SGPT 24 U/L (7-56); AST/SGOT 32 U/L (14-36); BILIRUBIN,TOTAL 0.4 mg/dL (0.2-1.3); BLOOD UREA NITROGEN 18 mg/dL (7-21); CALCIUM 9.1 mg/dL (8.4-10.5); CARBON DIOXIDE 30 mmol/L (21-33); CHLORIDE 105 mmol/L (98-107); GFR AFRICAN-AMERICAN > 60; GLUCOSE,RANDOM 117 mg/dL (70-110); POTASSIUM 3.6 mmol/L (3.6-5.0); SODIUM 143 mmol/L (132-148); TOTAL PROTEIN 6.3 g/dL (5.8-8.3)
[2017-02-19 00:12] LABS: TROPONIN I < 0.01 ng/mL
[2017-02-19] MEDS: Albuterol-Ipratrop 3 mg / 0.5 (3 ml) UD IH SCH (00:12)
[2017-02-19] MEDS ORDERED: levoFLOXacin 500 MG TAB PO STA (01:04)
--- NOTE | 2017-02-19 08:50 | RAD ---
HISTORY: sob COMPARISON: No prior. FINDINGS: LUNGS: No active pulmonary disease. PLEURA: No significant pleural effusion identified, no pneumothorax apparent. CARDIOVASCULAR: Normal. OSSEOUS STRUCTURES: Old healed left 7th rib posterolateral fracture noted VISUALIZED UPPER ABDOMEN: Normal. OTHER FINDINGS: None. IMPRESSION: No active disease.
--- NOTE | 2017-02-19 09:16 | CARD ---
APPROVED REPORT EKG Measurement Heart [id number] <Conclusion> Normal sinus rhythm Possible Left atrial enlargement Nonspecific ST and T wave abnormality Abnormal ECG
== END 2017-02-19 01:25 | disposition home or self-care (01) ==
LOC: ED 23:01
DX: J44.1 Chronic obstructive pulmonary disease with (acute) exacerbation (principal); I50.9 Heart failure, unspecified; I10 Essential (primary) hypertension; I25.2 Old myocardial infarction; Z87.891 Personal history of nicotine dependence; Z98.51 Tubal ligation status
CPT/HCPCS: 71010; 80053; 82550; 83615; 83880; 84484; 85025; 93005; 96374; 99284; J2930

== ENCOUNTER 2017-03-08 06:21 | Emergency (ER) | payer OTHER ==
[2017-03-08 06:21] VITALS: PULSE 92; BMI 29.0
[2017-03-08 06:35] VITALS: TEMP 98.3
[2017-03-08] MEDS ORDERED: Albuterol-Ipratrop 3 mg / 0.5 (3 ml) UD ONE (06:37)
[2017-03-08] MEDS: Albuterol-Ipratrop 3 mg / 0.5 (3 ml) UD IH SCH ×5 (06:39→08:18)
--- NOTE | 2017-03-08 07:36 | ED PDOC ---
Arrival/HPI - General Chief Complaint: Shortness Of Breath Time Seen by Provider: 03/08/17 06:32 Historian: Patient - History of Present Illness Narrative History of Present Illness (Text): 03/08/17 07:20 Lelo Denton is a 61 year old female, whose past medical history includes emphysema, asthma, CHF, and OK, who presents to the emergency department complaining of shortness of breath prior to arrival. Patient reports she was at work and states she has been feeling short of breath since yesterday, mainly because of the low temperature in weather. Patient also complaints of her ribs and lower back hurting when coughing and has rhinorrhea. Patient denies fever, abdominal pain, vomiting, diarrhea, dysuria, or other complaints. PMD: Dr. Santana Time/Duration: 24 hours Symptom Onset: Gradual Symptom Course: Improving Context: Work Associated Symptoms (Text): coughing, rhinorrhea, shortness of breath, musculoskeletal pain lower back and ribs Past Medical History - Provider Review Nursing Documentation Reviewed: Yes - Infectious Disease Hx of Infectious Diseases: None - Tetanus Immunization Tetanus Immunization: Unknown - Past Medical History Past Medical History: No Previous - Cardiac Hx Cardiac Disorders: Yes Hx [place]: Yes (2014) Hx Pacemaker: No Other/Comment: stent placement - Pulmonary Hx Respiratory Disorders: Yes Hx Asthma: Yes Hx Bronchitis: Yes Hx Chronic Obstructive Pulmonary Disease (COPD): Yes Hx Emphysema: Yes Hx Pneumonia: Yes - Neurological Hx Paralysis: No - HEENT Hx HEENT Disorder: Yes (reading glasses) - Renal Hx Renal Disorder: No - Endocrine/Metabolic Hx Endocrine Disorders: No - Hematological/Oncological Hx Blood Transfusions: No Hx Blood Transfusion Reaction: No - Integumentary Hx Dermatological Disorder: No - Musculoskeletal/Rheumatological Hx Musculoskeletal Disorders: Yes - Gastrointestinal Hx Gastrointestinal Disorders: No - Genitourinary/Gynecological Hx Genitourinary Disorders: Yes (TUBAL LIGATION) Hx Urinary Tract Infection: Yes - Psychiatric Hx Emotional Abuse: No Hx Physical Abuse: No Hx Substance Use: No - Past Surgical History Past Surgical History: Non-Contributing - Surgical History Hx Cardiac Catheterization: Yes (stent) Hx Coronary Stent: Yes (10/19/2014) Other/Comment: HX OF TUBAL LIGATION - Anesthesia Hx Anesthesia: Yes Hx Anesthesia Reactions: No Hx Malignant Hyperthermia: No - Suicidal Assessment Feels Threatened In Home Enviroment: No Family/Social History - Physician Review Nursing Documentation Reviewed: Yes Family/Social History: Unknown Family HX Smoking Status: Former Smoker Hx Alcohol Use: No Hx Substance Use: No Hx Substance Use Treatment: No Allergies/Home Meds Allergies/Adverse Reactions: Allergies No Known Allergies Allergy (Verified 02/18/17 23:09) Home Medications: Home Meds Medication Instructions Recorded Confirmed Albuterol HFA [Ventolin HFA 90 2 puff IH Q4 PRN 08/12/16 12/17/16 mcg/actuation (8 g)] Albuterol/Ipratropium [Duoneb 3 3 ml IH [id number] PRN 08/12/16 12/17/16 mg/0.5 mg (3 ml) UD] Fluticasone/Salmeterol [Advair 1 puff IH PRN PRN 12/17/16 12/17/16 250-50 Diskus] Review of Systems - Review of Systems Constitutional: absent: Fevers Eyes: absent: Vision Changes ENT: Rhinorrhea Respiratory: SOB, Cough Cardiovascular: absent: Chest Pain Gastrointestinal: absent: Abdominal Pain, Diarrhea, Nausea, Vomiting Genitourinary Female: absent: Dysuria, Frequency Musculoskeletal: Back Pain (lower back ), Other (bilateral ribs) Skin: absent: Rash Neurological: absent: Headache, Dizziness Endocrine: absent: Diaphoresis Hemo/Lymphatic: absent: Easy Bleeding Physical Exam Vital Signs Reviewed: Yes Vital Signs Temp Pulse Resp BP Pulse Ox 03/08/17 09:25 99 H 20 128/86 99 03/08/17 08:09 21 97 03/08/17 06:35 20 03/08/17 06:34 98.3 F 102 H 20 134/76 97 Temperature: Afebrile Blood Pressure: Normal Pulse: Tachycardic Respiratory Rate: Normal Appearance: Positive for: Well-Appearing, Non-Toxic, Comfortable Pain Distress: None Mental Status: Positive for: Alert and Oriented X 3 - Systems Exam Head: Present: Atraumatic, Normocephalic Pupils: Present: PERRL Extroacular Muscles: Present: EOMI Conjunctiva: Present: Normal Respiratory/Chest: Present: Wheezes (bilateral wheezing ). No: Respiratory Distress, Accessory Muscle Use Cardiovascular: Present: Regular Rate and Rhythm, Normal S1, S2. No: Murmurs Abdomen: Present: Normal Bowel Sounds. No: Tenderness, Distention, Peritoneal Signs, Rebound Back: Present: Other (lower lumbar tenderness) Upper Extremity: Present: Normal Inspection, Normal ROM, NORMAL PULSES. No: Cyanosis, Edema Lower Extremity: Present: Normal Inspection, Edema (trace of lower extremity edema), NORMAL PULSES, Normal ROM Neurological: Present: GCS=15, CN II-XII Intact, Speech Normal Skin: Present: Warm, Dry, Normal Color. No: Rashes Psychiatric: Present: Alert, Oriented x 3, Normal Insight, Normal Concentration Medical Decision Making ED Course and Treatment: 03/08/17 Impression: 61 year old with bilateral wheezing, trace of lower extremity edema, and lower lumbar tenderness Differential Diagnosis included but are not limited to: COPD vs. CHF Plan: -- EKG -- Chest X-ray -- Labs -- Duoneb, SoluMedrol -- Reassess and disposition Progress Notes: 03/08/17 08:05 EKG: Ordered, reviewed, and independently interpreted the EKG. Rate : 98 BPM Rhythm : NSR Interpretation : No ST-segment elevations or depressions, no T-wave inversions, normal intervals. 03/08/17 08:45 Chest X-ray: Creator : Mateusz Guillen MD COMPARISON: Comparison is made to 02/18/2017 FINDINGS: LUNGS: Prominent lung markings seen at the lower lobes. Otherwise no significant interval change since the previous exam. PLEURA: No significant pleural effusion identified, no pneumothorax apparent. CARDIOVASCULAR: Normal. OSSEOUS STRUCTURES: No significant abnormalities. VISUALIZED UPPER ABDOMEN: Normal. OTHER FINDINGS: None. IMPRESSION: Slightly prominent lung markings seen at the lower lobes. Otherwise no significant interval change since the previous exam noted. 03/08/17 11:25 On reevaluation, patient feels much better. Lungs clear. No w/r/r. She is able to walk around the ED without SOB. Oxy 96% on RA. She will continue taking albuterol and prednisone at home. Dr. Santana came to see her in the ED. She will follow up with him as an outpatient in 1-2days. - Lab Interpretations Lab Results: 03/08/17 07:54 03/08/17 07:54 Lab Results 03/08/17 08:36: Influenza Typ A,B (EIA) Negative for flu a/b 03/08/17 07:54: Sodium 141, Potassium 3.7, Chloride 106, Carbon Dioxide 31, Anion Gap 8 L, BUN 26 H, Creatinine 0.8, Est GFR ( Amer) > 60, Est GFR ( Non-Af Amer) > 60, Random Glucose 125 H, Calcium 9.2, Lactate Dehydrogenase 594 , Total Creatine Kinase 344 H, CK-MB (CK-2) 2.7, CK-MB (CK-2) % Cancelled, Troponin I < 0.01, NT-Pro-B Natriuret Pep 89.1 03/08/17 07:54: WBC 12.5 H, RBC 4.25, Hgb 11.9 L, Hct 38.0, MCV 89.4, MCH 28.0, MCHC 31.3, RDW 17.2 H, Plt Count 290, MPV 9.3, Gran % 61.0, Lymph % (Auto) 30.7 , [place] % (Auto) 7.5 H, Eos % (Auto) 0.6 L, Baso % (Auto) 0.2, Gran # 7.59 H, Lymph # 3.8 H, Finney # 0.9 H, Eos # 0.1, Baso # 0.02 I have reviewed the lab results: Yes - RAD Interpretation Radiology Orders: 03/08/17 07:23 CHEST PORTABLE [RAD] Stat Resolution Manager: Radiologist - EKG Interpretation Interpreted by ED Physician: Yes Type: 12 lead EKG - Medication Orders Current Medication Orders: Discontinued Medications Albuterol Sulfate (Albuterol 0.083% Inhal Yoly (2.5 Mg/3 Ml) Ud) 2.5 mg IH STAT STA Stop: 03/08/17 08:10 Last Admin: 03/08/17 08:18 Dose: 2.5 mg Albuterol Sulfate (Albuterol 0.083% Inhal Yoly (2.5 Mg/3 Ml) Ud) 2.5 mg IH STAT STA Stop: 03/08/17 09:04 Last Admin: 03/08/17 09:22 Dose: 2.5 mg Albuterol/Ipratropium (Duoneb 3 Mg/0.5 Mg (3 Ml) Ud) 3 ml IH Q15M JEANCARLOS Stop: 03/08/17 07:16 Last Admin: 03/08/17 07:08 Dose: 3 ml Albuterol/Ipratropium (Duoneb 3 Mg/0.5 Mg (3 Ml) Ud) 3 ml IH Q15M JEANCARLOS Stop: 03/08/17 08:01 Last Admin: 03/08/17 08:18 Dose: Guaifenesin/Dextromethorphan (Robitussin Dm) 10 ml PO STAT STA Stop: 03/08/17 09:05 Last Admin: 03/08/17 09:21 Dose: 10 ml Ketorolac Tromethamine (Toradol) 30 mg IVP STAT STA Stop: 03/08/17 09:04 Last Admin: 03/08/17 09:23 Dose: 30 mg MAR Pain Assessment Document 03/08/17 09:23 MR (Rec: 03/08/17 09:24 MR [id number]) Pain Reassessment Is this a pain reassessment? Yes Sleep Is patient sleeping during reassessment? No Presence of Pain Presence of Pain Yes Pain Scale Used Pain Scale Used Numeric Location Left, Right or Bilateral Bilateral Pain Location Body Site Chest Description Description Constant Intensity of Pain at present 8 Pain Behavior Facial Grimacing Alleviating Factors/Management Medication Techniques Alleviating Factors Medication IVP Administration Document 03/08/17 09:23 MR (Rec: 03/08/17 09:24 MR [id number]) Charges for Administration # of IVP Administrations 1 Methylprednisolone (Solu-Medrol) 125 mg IVP STAT STA Stop: 03/08/17 06:40 Last Admin: 03/08/17 06:46 Dose: 125 mg IVP Administration Document 03/08/17 06:46 YP (Rec: 03/08/17 06:46 YP [id number]) Charges for Administration # of IVP Administrations 1 - Scribe Statement The provider has reviewed the documentation as recorded by the Arlene Canchola Provider Scribe Attestation: All medical record entries made by the Scribe were at my direction and personally dictated by me. I have reviewed the chart and agree that the record accurately reflects my personal performance of the history, physical exam, medical decision making, and the department course for this patient. I have also personally directed, reviewed, and agree with the discharge instructions and disposition. Disposition/Present on Arrival - Present on Arrival Any Indicators Present on Arrival: No History of DVT/PE: No History of Uncontrolled Diabetes: No Urinary Catheter: No History of Decub. Ulcer: No History Surgical Site Infection Following: None - Disposition Have Diagnosis and Disposition been Completed?: Yes Diagnosis: COPD exacerbation Disposition: HOME/ ROUTINE Disposition Time: 11:26 Patient Plan: Discharge Patient Problems: Current Active Problems Problem Status Onset COPD exacerbation Acute Condition: IMPROVED Discharge Instructions (ExitCare): COPD (Chronic Obstructive Pulmonary Disease ) (ED) Additional Instructions: Ms Denton, thank you for letting us take care of you today. Your provider was Dr. Ca. You were treated for COPD Exacerbation. The emergency medical care you received today was directed at your acute symptoms. If you were prescribed any medication, please fill it and take as directed. It may take several days for your symptoms to resolve. Return to the Emergency Department if your symptoms worsen, do not improve, or if you have any other problems. Please contact your doctor or call one of the physicians/clinics you have been referred to that are listed on the Patient Visit Information form that is included in your discharge packet. Bring any paperwork you were given at discharge with you along with any medications you are taking to your follow up visit. Our treatment cannot replace ongoing medical care by a primary care provider (PCP) outside of the emergency department. Thank you for allowing the [facility] team to be part of your care today. If you had an X-Ray or CT scan: A Radiologist will review the ED reading if any change in treatment is needed we will contact you. If you had a blood, urine, or wound culture: It will take several days for the results, if any change in treatment is needed we will contact you. If you had an STI test: It will take 48 hours for the results. Please call after 1 week if you have not heard back. Prescriptions: Albuterol HFA [Ventolin HFA 90 mcg/actuation (8 g)] 2 puff IH Q4 #1 puff predniSONE [predniSONE Tab] 40 mg PO DAILY #8 tab Referrals: Tom Santana DO [Family Provider] - Follow up with primary Forms: [employer] (Urdu), WORK NOTE
[2017-03-08 08:06] LABS: BASO # 0.02 K/mm3 (0.0-2.0); BASO % 0.2 % (0.0-3.0); EOS # 0.1 (0.0-0.7); EOS % 0.6 % (1.5-5.0); GRAN # 7.59 (1.4-6.5); LYMPH # 3.8 (1.2-3.4); LYMPH % 30.7 % (22.0-35.0); MEAN CELL VOLUME 89.4 fl (80.0-105.0); MEAN CORPUSCULAR HGB CONC 31.3 g/dl (31.0-37.0); MEAN PLATELET VOLUME 9.3 fl (7.0-11.0); MONO # 0.9 (0.1-0.6); MONO % 7.5 % (1.0-6.0); RED CELL DISTRIBUTION WIDTH 17.2 % (11.5-14.5); WHITE BLOOD COUNT 12.5 10^3/ul (4.5-11.0)
[2017-03-08] MEDS ORDERED: Albuterol 0.083% Inhal Sol (2.5 mg/3 mL) UD IH STA ×2 (08:09→09:03)
[2017-03-08 08:19] LABS: BLOOD UREA NITROGEN 26 mg/dL (7-21); CALCIUM 9.2 mg/dL (8.4-10.5); CARBON DIOXIDE 31 mmol/L (21-33); CHLORIDE 106 mmol/L (98-107); GFR AFRICAN-AMERICAN > 60; GLUCOSE,RANDOM 125 mg/dL (70-110); POTASSIUM 3.7 mmol/L (3.6-5.0); SODIUM 141 mmol/L (132-148)
[2017-03-08 08:32] LABS: TROPONIN I < 0.01 ng/mL
--- NOTE | 2017-03-08 08:44 | RAD ---
HISTORY: cough r/o pna COMPARISON: Comparison is made to 02/18/2017 FINDINGS: LUNGS: Prominent lung markings seen at the lower lobes. Otherwise no significant interval change since the previous exam. PLEURA: No significant pleural effusion identified, no pneumothorax apparent. CARDIOVASCULAR: Normal. OSSEOUS STRUCTURES: No significant abnormalities. VISUALIZED UPPER ABDOMEN: Normal. OTHER FINDINGS: None. IMPRESSION: Slightly prominent lung markings seen at the lower lobes. Otherwise no significant interval change since the previous exam noted.
[2017-03-08] MEDS ORDERED: guaiFENesin DM 200 mg-20 mg/10 ml UD PO STA (09:04)
[2017-03-08 09:26] VITALS: O2SAT 99
[2017-03-08 11:44] VITALS: BP 143/78; PULSE 88; RESP 18
--- NOTE | 2017-03-08 12:00 | CARD ---
APPROVED REPORT EKG Measurement Heart [id number] <Conclusion> Normal sinus rhythm Possible Left atrial enlargement Nonspecific ST and T wave abnormality Abnormal ECG
== END 2017-03-08 11:50 | disposition home or self-care (01) ==
LOC: ED 06:21
DX: J44.1 Chronic obstructive pulmonary disease with (acute) exacerbation (principal); Z87.891 Personal history of nicotine dependence; I50.9 Heart failure, unspecified; I25.2 Old myocardial infarction; Z98.51 Tubal ligation status
CPT/HCPCS: 71010; 80048; 82550; 82553; 83615; 83880; 84484; 85025; 87040; 87804; 93005; 96374; 96375; 99285; J1885; J2930

== ENCOUNTER 2017-04-18 23:02 | Emergency (ER) | payer OTHER ==
[2017-04-18 23:02] VITALS: PULSE 92
[2017-04-18 23:10] VITALS: BMI 30.2
[2017-04-18] MEDS ORDERED: Albuterol-Ipratrop 3 mg / 0.5 (3 ml) UD ONE (23:11)
--- NOTE | 2017-04-18 23:18 | ED PDOC ---
Arrival/HPI - General Chief Complaint: Respiratory Distress Time Seen by Provider: 04/18/17 23:05 Historian: Patient - History of Present Illness Narrative History of Present Illness (Text): 04/18/17 23:18 pt with history of COPD/CHF, with difficulty breathing and cough with white sputum but otherwise without any nausea/vomiting/headache/dizziness/chest pain/ abdomen pain/numbness/tingling/loss of limb function/pain with urination/travel/ prior blood clots/prior cancer. PMD: Dr. Santana Time/Duration: 24 hours Symptom Onset: Gradual Symptom Course: Unchanged Quality: Unable to Describe Severity Level: 5 Activities at Onset: Rest Past Medical History - Provider Review Nursing Documentation Reviewed: Yes - Travel History Have you recently traveled outside [place] w/in the past 3 mons?: No - Infectious Disease Hx of Infectious Diseases: None - Tetanus Immunization Tetanus Immunization: Unknown - Past Medical History Past Medical History: No Previous - Cardiac Hx Cardiac Disorders: Yes Hx [place]: Yes (2014) Hx Pacemaker: No Other/Comment: stent placement - Pulmonary Hx Respiratory Disorders: Yes Hx Asthma: Yes Hx Bronchitis: Yes Hx Chronic Obstructive Pulmonary Disease (COPD): Yes Hx Emphysema: Yes Hx Pneumonia: Yes - Neurological Hx Paralysis: No - HEENT Hx HEENT Disorder: Yes (reading glasses) - Renal Hx Renal Disorder: No - Endocrine/Metabolic Hx Endocrine Disorders: No - Hematological/Oncological Hx Blood Transfusions: No Hx Blood Transfusion Reaction: No - Integumentary Hx Dermatological Disorder: No - Musculoskeletal/Rheumatological Hx Musculoskeletal Disorders: Yes - Gastrointestinal Hx Gastrointestinal Disorders: No - Genitourinary/Gynecological Hx Genitourinary Disorders: Yes (TUBAL LIGATION) Hx Urinary Tract Infection: Yes - Psychiatric Hx Emotional Abuse: No Hx Physical Abuse: No Hx Substance Use: No - Past Surgical History Past Surgical History: Non-Contributing - Surgical History Hx Cardiac Catheterization: Yes (stent) Hx Coronary Stent: Yes (10/19/2014) Other/Comment: HX OF TUBAL LIGATION - Anesthesia Hx Anesthesia: Yes Hx Anesthesia Reactions: No Hx Malignant Hyperthermia: No - Suicidal Assessment Feels Threatened In Home Enviroment: No Family/Social History - Physician Review Nursing Documentation Reviewed: Yes Family/Social History: No Known Family HX Smoking Status: Former Smoker Hx Alcohol Use: No Hx Substance Use: No Hx Substance Use Treatment: No Allergies/Home Meds Allergies/Adverse Reactions: Allergies No Known Allergies Allergy (Verified 02/18/17 23:09) Home Medications: Home Meds Medication Instructions Recorded Confirmed Albuterol/Ipratropium [Duoneb 3 3 ml IH [id number] PRN 08/12/16 04/19/17 mg/0.5 mg (3 ml) UD] Fluticasone/Salmeterol [Advair 1 puff IH PRN PRN 12/17/16 04/19/17 250-50 Diskus] Review of Systems - Physician Review All systems were reviewed & negative as marked: Yes - Review of Systems Constitutional: Normal Eyes: Normal ENT: Normal Respiratory: SOB, Cough Cardiovascular: Normal Gastrointestinal: Normal Genitourinary Female: Normal Musculoskeletal: Normal Skin: Normal Neurological: Normal Endocrine: Normal Hemo/Lymphatic: Normal Psychiatric: Normal Physical Exam Vital Signs Reviewed: Yes Vital Signs Temp Pulse Resp BP Pulse Ox 04/19/17 01:02 98.4 F 90 18 119/71 100 04/19/17 00:30 19 04/18/17 23:26 30 H 100 04/18/17 23:13 98.3 F 112 H 20 119/71 96 04/18/17 23:10 98.3 F 113 H 18 119/71 94 L Temperature: Afebrile Blood Pressure: Normal Pulse: Tachycardic Respiratory Rate: Normal Appearance: Positive for: Uncomfortable Pain Distress: None Mental Status: Positive for: Alert and Oriented X 3 - Systems Exam Head: Present: Atraumatic, Normocephalic Pupils: Present: PERRL Extroacular Muscles: Present: EOMI Conjunctiva: Present: Normal Ears: Present: Normal Mouth: Present: Moist Mucous Membranes Pharnyx: Present: Normal Nose (External): Present: Atraumatic Nose (Internal): Present: Normal Inspection Neck: Present: Normal Range of Motion Respiratory/Chest: Present: Accessory Muscle Use, Decreased Breath Sounds Cardiovascular: Present: Regular Rate and Rhythm Abdomen: No: Tenderness, Distention, Normal Bowel Sounds, Peritoneal Signs, Rebound, Guarding, McBurney's Point Tender, Rovsing's Sign Present, Hernias, Feeding Tubes, Ostomy Tubes, Mass/Organomegaly, Scars, Other Back: Present: Normal Inspection, Other (no cervical or thoracic or lumbar spinal or paraspinal tenderness) Upper Extremity: Present: Normal Inspection Lower Extremity: Present: Normal Inspection Neurological: Present: GCS=15, CN II-XII Intact, Speech Normal, Motor Func Grossly Intact Skin: Present: Warm, Normal Color Psychiatric: Present: Alert, Oriented x 3, Normal Insight, Normal Concentration Medical Decision Making ED Course and Treatment: 04/18/17 23:34 pt with history of COPD/CHF, with difficulty breathing and cough with white sputum but otherwise without any nausea/vomiting/headache/dizziness/chest pain/ abdomen pain/numbness/tingling/loss of limb function/pain with urination/travel/ prior blood clots/prior cancer.You were otherwise breathing easily, short sentences initially, good strength/sensation, decreased lung sounds, no abdomen tenderness, no fever temp 98.3, fast heart rate 113 and on repeat improved 68 , stable breathing rate 18, stable oxygen level 94% room air, stable blood pressure 119/71, you have blood tests no infection count 7.8, stable blood level hemoglobin 12.7/platelets 320, stable chemistry sodium 143, potassium 3.8 , bicarbonate 27, chloride 108, bun 18, creatinine 0.9, slight elevated glucose 118, liver AST/ALT 26/24, Liver Alkaline Phosphatase 75, Liver bilirubin 0.2, Magnesium 2.0, heart blood test <0.01, urine test Small High Leukocyte Esterase without pain with urination thus no acute sign of urine infection at this time, radiology CXR no acute, ECG normal sinus rhythm, solumedrol/duoneb, done in the ED with improvement, counselled to stay in the hospital but you wanted to go home and cautioned for worsening breathing/complications/, and to monitor breathing and thus discharged home. 1. Recommend Azithromycin as directed for infection control. 2. prednisone as directed for breathing relief. 3. Recommend continue breathing treatments as previously prescribed. 4. Recommend follow-up primary care 2-3 days to review symptoms, referral to pulmonary and cardiology clinic. 4. If any worsening pain, fever, chills, nausea, vomiting, difficulty breathing, numbness, loss of limb function, pain with urination or any medical condition then return to the ED. EXAM: XR Chest, 1 View Dictated and Authenticated by: Kathleen Jimenez MD 04/19/2017 2:47 AM IMPRESSION: Bibasilar mild nonspecific infiltrates are present, consistent with atelectasis or pneumonia. 04/19/17 03:57 04/19/17 04:03 04/19/17 04:04 - Lab Interpretations Lab Results: 04/18/17 23:20 04/18/17 23:20 Lab Results 04/19/17 00:30: Urine Color Yellow, Urine Appearance Sl cloudy, Urine pH 5.5, Ur Specific [place] >= 1.030, Urine Protein Negative, Urine Glucose (UA) Negative, Urine Ketones Negative, Urine Blood Negative, Urine Nitrate Negative, Urine Bilirubin Negative, Urine Urobilinogen 0.2, Ur Leukocyte Esterase Small H , Urine RBC 5 - 10, Urine WBC 15 - 20, Ur Epithelial Cells 10 - 12, Urine Bacteria Mod, Urine Other Fiber 04/18/17 23:20: Sodium 143, Potassium 3.8, Chloride 108 H, Carbon Dioxide 27, Anion Gap 12, BUN 18, Creatinine 0.9, Est GFR ( Amer) > 60, Est GFR (Non- Af Amer) > 60, Random Glucose 118 H, Calcium 9.4, Magnesium 2.0, Total Bilirubin 0.2, AST 26, ALT 24, Alkaline Phosphatase 75, Lactate Dehydrogenase 535, Total Creatine Kinase 202, Troponin I < 0.01, NT-Pro-B Natriuret Pep 45.1, Total Protein 7.0, Albumin 4.1, Globulin 2.9, Albumin/Globulin Ratio 1.4 04/18/17 23:20: PT 10.4, INR 0.96, APTT 34.4 04/18/17 23:20: WBC 7.8 D, RBC 4.53, Hgb 12.7, Hct 40.1, MCV 88.5, MCH 28.0, MCHC 31.7, RDW 16.2 H, Plt Count 320, MPV 10.3, Gran % 54.8, Lymph % (Auto) 32.7 , [place] % (Auto) 10.6 H, Eos % (Auto) 1.4 L, Baso % (Auto) 0.5, Gran # 4.30, Lymph # 2.6, [place] # 0.8 H, Eos # 0.1, Baso # 0.04 I have reviewed the lab results: Yes - RAD Interpretation Radiology Orders: 04/18/17 23:28 CHEST PORTABLE [RAD] Stat - EKG Interpretation Interpreted by ED Physician: Yes Type: 12 lead EKG - Medication Orders Current Medication Orders: Discontinued Medications Albuterol/Ipratropium (Duoneb 3 Mg/0.5 Mg (3 Ml) Ud) 3 ml IH STAT STA Stop: 04/18/17 23:30 Last Admin: 04/19/17 00:03 Dose: Methylprednisolone (Solu-Medrol) 125 mg IVP STAT STA Stop: 04/18/17 23:30 Last Admin: 04/19/17 00:03 Dose: Disposition/Present on Arrival - Present on Arrival Any Indicators Present on Arrival: No History of DVT/PE: No History of Uncontrolled Diabetes: No Urinary Catheter: No History of Decub. Ulcer: No History Surgical Site Infection Following: None - Disposition Have Diagnosis and Disposition been Completed?: Yes Diagnosis: SOB (shortness of breath), Chronic obstructive airway disease, COPD exacerbation Disposition: AGAINST MEDICAL ADVICE Disposition Time: 03:59 Patient Plan: Discharge Patient Problems: Current Active Problems Problem Status Onset COPD exacerbation Acute Chronic obstructive airway disease Acute SOB (shortness of breath) Acute Condition: IMPROVED Additional Instructions: pt with history of COPD/CHF, with difficulty breathing and cough with white sputum but otherwise without any nausea/vomiting/headache/dizziness/chest pain/ abdomen pain/numbness/tingling/loss of limb function/pain with urination/travel/ prior blood clots/prior cancer.You were otherwise breathing easily, short sentences initially, good strength/sensation, decreased lung sounds, no abdomen tenderness, no fever temp 98.3, fast heart rate 113 and on repeat---- , stable breathing rate 18, stable oxygen level 94% room air, stable blood pressure 119/ 71, you have blood tests no infection count 7.8, stable blood level hemoglobin 12.7/platelets 320, stable chemistry sodium 143, potassium 3.8, bicarbonate 27, chloride 108, bun 18, creatinine 0.9, slight elevated glucose 118, liver AST/ ALT 26/24, Liver Alkaline Phosphatase 75, Liver bilirubin 0.2, Magnesium 2.0, heart blood test <0.01, urine test Small High Leukocyte Esterase without pain with urination thus no acute sign of urine infection at thist alice, radiology CXR with possible lung pneumonia vs scarring, ECG normal sinus rhythm, solumedrol/duoneb/azithromycin, done in the ED with improvement, counselled to stay in the hospital but you wanted to go home and cautioned for worsening breathing/complications/, and to monitor breathing and thus discharged home. 1. Recommend Azithromycin as directed for infection control. 2. prednisone as directed for breathing relief. 3. Recommend continue breathing treatments as previously prescribed. 4. Recommend follow-up primary care 2-3 days to review symptoms, referral to pulmonary and cardiology clinic. 4. If any worsening pain, fever, chills, nausea, vomiting, difficulty breathing, numbness , loss of limb function, pain with urination or any medical condition then return to the ED. Prescriptions: Azithromycin [Z-Jose] 250 mg PO DAILY 5 Days #6 tab Referrals: Tom Santana DO [Primary Care Provider] - Follow up with primary Forms: [employer] (Mongolian)
[2017-04-18 23:27] VITALS: O2SAT 100
[2017-04-18] MEDS ORDERED: Albuterol-Ipratrop 3 mg / 0.5 (3 ml) UD IH STA (23:29)
[2017-04-19 00:02] LABS: ALB/GLOB RATIO 1.4 (1.1-1.8); ALKALINE PHOSPHATASE 75 U/L (38-126); ALT/SGPT 24 U/L (7-56); AST/SGOT 26 U/L (14-36); BILIRUBIN,TOTAL 0.2 mg/dL (0.2-1.3); BLOOD UREA NITROGEN 18 mg/dL (7-21); CALCIUM 9.4 mg/dL (8.4-10.5); CARBON DIOXIDE 27 mmol/L (21-33); CHLORIDE 108 mmol/L (98-107); GFR AFRICAN-AMERICAN > 60; GLUCOSE,RANDOM 118 mg/dL (70-110); POTASSIUM 3.8 mmol/L (3.6-5.0); SODIUM 143 mmol/L (132-148)
[2017-04-19 00:07] LABS: INR 0.96 (0.93-1.08)
[2017-04-19 00:08] LABS: PARTIAL THROMBOPLASTIN TIME 34.4 Seconds (25.1-36.5); WHITE BLOOD COUNT 7.8 10^3/ul (4.5-11.0)
[2017-04-19 00:09] LABS: BASO % 0.5 % (0.0-3.0); EOS % 1.4 % (1.5-5.0); GRAN # 4.3 (1.4-6.5); GRAN % 54.8 % (50.0-68.0); HEMATOCRIT 40.1 % (36.0-48.0); LYMPH # 2.6 (1.2-3.4); LYMPH % 32.7 % (22.0-35.0); MEAN CELL VOLUME 88.5 fl (80.0-105.0); MEAN CORPUSCULAR HGB CONC 31.7 g/dl (31.0-37.0); MEAN PLATELET VOLUME 10.3 fl (7.0-11.0); MONO # 0.8 (0.1-0.6); MONO % 10.6 % (1.0-6.0); RED CELL DISTRIBUTION WIDTH 16.2 % (11.5-14.5)
[2017-04-19 00:10] LABS: BASO # 0.04 K/mm3 (0.0-2.0); EOS # 0.1 (0.0-0.7)
[2017-04-19 00:13] LABS: TROPONIN I < 0.01 ng/mL
[2017-04-19 02:30] LABS: PH,URINE 5.5 (4.7-8.0); URINE BILIRUBIN NEGATIVE (NEGATIVE); URINE BLOOD NEGATIVE (NEGATIVE); URINE GLUCOSE (UA) NEGATIVE (NEGATIVE); URINE KETONE NEGATIVE (NEGATIVE); URINE LEUKOCYTE ESTERASE SMALL Leu/uL (NEGATIVE); URINE PROTEIN NEGATIVE mg/dL (<30 mg/dL); URINE UROBILINOGEN 0.2 E.U./dL (<1 E.U./dL)
[2017-04-19 02:39] LABS: URINE APPEARANCE SL CLOUDY (CLEAR); URINE COLOR YELLOW (YELLOW)
[2017-04-19 02:43] LABS: URINE BACTERIA MOD (NEG); URINE WBC 15 - 20 /hpf (0-6)
[2017-04-19 04:01] VITALS: RESP 16; TEMP 98.6
[2017-04-19 04:16] VITALS: BP 121/76; PULSE 65
--- NOTE | 2017-04-19 09:44 | CARD ---
APPROVED REPORT EKG Measurement Heart [id number] <Conclusion> Normal sinus rhythm Mild NSSTW changes No change
--- NOTE | 2017-04-19 13:13 | RAD ---
HISTORY: 61yoF, sob COMPARISON: 03/08/2017 FINDINGS: LUNGS: No active pulmonary disease. PLEURA: No significant pleural effusion identified, no pneumothorax apparent. CARDIOVASCULAR: No radiographic findings to suggest acute or significant cardiovascular disease. OSSEOUS STRUCTURES: No significant abnormalities. VISUALIZED UPPER ABDOMEN: Normal. OTHER FINDINGS: None. IMPRESSION: No active disease. No significant interval change compared to the prior examination(s).
== END 2017-04-19 04:15 | disposition left against medical advice (07) ==
LOC: ED 23:02
DX: J44.1 Chronic obstructive pulmonary disease with (acute) exacerbation (principal); R06.02 Shortness of breath; I50.9 Heart failure, unspecified; Z87.891 Personal history of nicotine dependence
CPT/HCPCS: 71010; 80053; 81001; 82550; 83615; 83735; 83880; 84484; 85025; 85610; 85730; 87086; 93005; 99285; J2930

== ENCOUNTER 2017-04-29 12:58 | Inpatient (IN) | payer OTHER ==
[2017-04-29 13:22] VITALS: BMI 32.1
--- NOTE | 2017-04-29 13:42 | ED PDOC ---
Arrival/HPI - General Chief Complaint: Shortness Of Breath Time Seen by Provider: 04/29/17 13:38 Historian: Patient - History of Present Illness Narrative History of Present Illness (Text): 04/29/17 13:30 Lelo Denton is a 61 year old female, whose past medical history includes [place] with coronary stent, asthma, and COPD, who presents to the emergency department complaining of shortness of breath since last night. Patient reports she has general body aches, dry cough with clear sputum, diaphoresis, congestion, and nausea. Patient states using her nebulizer x3 at home every 4 hours last night. She notes coming to the emergency department 2 weeks ago and was diagnosed with questionable PNA but left against medical advice. Patient denies chest pain, fever, chills, vomiting, diarrhea, abdominal pain, lower extremity pain/swelling , recent travel, hematochezia, melena, dizziness or other complaints. PMD: Dr. Santana Time/Duration: 24 hours Symptom Onset: Gradual Symptom Course: Worsening Quality: Aching Context: Home Past Medical History - Provider Review Nursing Documentation Reviewed: Yes - Travel History Have you recently traveled outside [place] w/in the past 3 mons?: No - Infectious Disease Hx of Infectious Diseases: None - Tetanus Immunization Tetanus Immunization: Unknown - Past Medical History Past Medical History: No Previous - Cardiac Hx Cardiac Disorders: Yes Hx MO: Yes (2014) Hx Pacemaker: No Other/Comment: stent placement - Pulmonary Hx Respiratory Disorders: Yes Hx Asthma: Yes Hx Bronchitis: Yes Hx Chronic Obstructive Pulmonary Disease (COPD): Yes Hx Emphysema: Yes Hx Pneumonia: Yes - Neurological Hx Paralysis: No - HEENT Hx HEENT Disorder: Yes (reading glasses) - Renal Hx Renal Disorder: No - Endocrine/Metabolic Hx Endocrine Disorders: No - Hematological/Oncological Hx Blood Transfusions: No Hx Blood Transfusion Reaction: No - Integumentary Hx Dermatological Disorder: No - Musculoskeletal/Rheumatological Hx Musculoskeletal Disorders: Yes - Gastrointestinal Hx Gastrointestinal Disorders: No - Genitourinary/Gynecological Hx Genitourinary Disorders: Yes (TUBAL LIGATION) Hx Urinary Tract Infection: Yes - Psychiatric Hx Emotional Abuse: No Hx Physical Abuse: No Hx Substance Use: No - Past Surgical History Past Surgical History: Non-Contributing - Surgical History Hx Cardiac Catheterization: Yes (stent) Hx Coronary Stent: Yes (10/19/2014) Other/Comment: HX OF TUBAL LIGATION - Anesthesia Hx Anesthesia: Yes Hx Anesthesia Reactions: No Hx Malignant Hyperthermia: No - Suicidal Assessment Feels Threatened In Home Enviroment: No Family/Social History - Physician Review Nursing Documentation Reviewed: Yes Family/Social History: Unknown Family HX Smoking Status: Former Smoker Hx Alcohol Use: No Hx Substance Use: No Hx Substance Use Treatment: No Allergies/Home Meds Allergies/Adverse Reactions: Allergies No Known Allergies Allergy (Verified 02/18/17 23:09) Home Medications: Home Meds Medication Instructions Recorded Confirmed Albuterol/Ipratropium [Duoneb 3 3 ml IH [id number] PRN 08/12/16 04/29/17 mg/0.5 mg (3 ml) UD] Fluticasone/Salmeterol [Advair 1 puff IH PRN PRN 12/17/16 04/29/17 250-50 Diskus] Review of Systems - Review of Systems Constitutional: absent: Fevers Eyes: absent: Vision Changes ENT: Sinus Congestion. absent: Sore Throat, Rhinorrhea Respiratory: SOB, Cough (dry), Sputum (clear) Cardiovascular: absent: Chest Pain, Palpitations Gastrointestinal: Nausea. absent: Abdominal Pain, Vomiting Genitourinary Female: absent: Dysuria, Frequency Musculoskeletal: Back Pain (lower back pain ), Myalgias Neurological: absent: Dizziness Endocrine: absent: Polyuria Physical Exam Vital Signs Reviewed: Yes (elevated HR) Vital Signs Temp Pulse Resp BP Pulse Ox 04/29/17 17:30 99.1 F 113 H 16 120/64 98 04/29/17 14:58 98.0 F 78 17 98/68 L 99 04/29/17 14:20 108/66 Temperature: Afebrile Blood Pressure: Normal Pulse: Tachycardic Respiratory Rate: Normal Appearance: Positive for: Well-Appearing, Non-Toxic, Other (uncomfortable, alert /awake, mild distress due to sob, cooperative) Pain Distress: Mild Mental Status: Positive for: Alert and Oriented X 3 - Systems Exam Head: Present: Atraumatic, Normocephalic Pupils: Present: PERRL Extroacular Muscles: Present: EOMI Conjunctiva: Present: Normal Mouth: Present: Normal Teeth, Other (mild dry oral mucosa, no drooling/stridor, no exudate/lesions) Pharnyx: Present: Normal. No: ERYTHEMA Nose (External): Present: Atraumatic Neck: Present: Normal Range of Motion, Trachea Midline. No: MIDLINE TENDERNESS Respiratory/Chest: Present: Clear to Auscultation, Decreased Breath Sounds ( bilateral; no w/r/r), Other (no accessory muscle use noted, mild tachypenia). No: Good Air Exchange, Respiratory Distress, Accessory Muscle Use, Rales, Retracting, Rhonchi Cardiovascular: Present: Normal S1, S2, Other (+ mild tachycardia, no murmur). No: Murmurs Abdomen: Present: Normal Bowel Sounds, Other (well nourished female, no focal tenderness, no hilario's sign, no mcburney's point tenderness). No: Tenderness, Distention, Peritoneal Signs Upper Extremity: Present: Normal Inspection, Normal ROM, NORMAL PULSES, Neurovascularly Intact, Capillary Refill < 2s. No: Cyanosis, Edema, Tenderness , Swelling, Erythema, Deformity Lower Extremity: Present: Normal Inspection, Edema (+1 up to mid tib-fib), NORMAL PULSES, Normal ROM, Swelling, Neurovascularly Intact, Capillary Refill < 2 s. No: Cyanosis, Saqib's Sign, Tenderness, Erythema, Deformity Neurological: Present: GCS=15, CN II-XII Intact, Speech Normal Skin: Present: Warm, Dry, Normal Color, Other (cap refill < 1sec, no ulcerations , no petechiae). No: Rashes Psychiatric: Present: Alert, Oriented x 3, Normal Insight, Normal Concentration Medical Decision Making ED Course and Treatment: 04/29/17 Impression: 61 year old female with equally bilateral decreased breath sounds and +1 lower extremity edema up to mid tib-fib. I have considered all Differential Diagnosis regarding pt's chief medical complaints/clinical findings included but are not limited to: r/o PNA vs. bronchitis vs. asthma exacerbation r/o ACS vs CHF Plan: -- EKG -- Chest X-ray -- Labs -- Urinalysis -- Aspirin, Duoneb, Lasix, Solumedrol -- Reassess and disposition Progress Notes: Case discussed with Dr. Santana who is aware of plan and is awaiting lab results. 04/29/17 17:37 16:30 - Dr Santana is at bedside, evaluated patient, will admit patient pt continues to feel uncomfortable, and is made aware of her medical results agrees with admission Re-evaluation Time: 17:45 Reassessment Condition: Improving,but remains with symptoms - Lab Interpretations Lab Results: 04/29/17 14:30 04/29/17 14:30 Lab Results 04/29/17 15:03: pO2 94 H, VBG pH 7.43, VBG pCO2 43.0, VBG HCO3 28.5 H, VBG Total CO2 29.8 H, VBG O2 Sat (Calc) 98.7 H, VBG Base Excess 3.7 H, VBG Potassium 5.1, Glucose 95, Lactate 1.3, FiO2 21.0, Sodium 136.0, Chloride 103.0 , Venous Blood Potassium 5.1 04/29/17 15:00: Influenza Typ A,B (EIA) Negative for flu a/b 04/29/17 14:30: Sodium 139, Potassium 4.6, Chloride 102, Carbon Dioxide 25, Anion Gap 17, BUN 12, Creatinine 1.0, Est GFR ( Amer) > 60, Est GFR (Non- Af Amer) 56, Random Glucose 87, Calcium 9.9, Total Bilirubin 0.5, AST 20, ALT 24 , Alkaline Phosphatase 63, Lactate Dehydrogenase 697, Total Creatine Kinase 116 , Troponin I < 0.01, NT-Pro-B Natriuret Pep 104, Total Protein 6.8, Albumin 4.3 , Globulin 2.5, Albumin/Globulin Ratio 1.7 04/29/17 14:30: WBC 9.8 D, RBC 4.71, Hgb 13.3, Hct 41.9, MCV 89.0, MCH 28.2, MCHC 31.7, RDW 15.6 H, Plt Count 304, MPV 10.3, Gran % 82.2 H, Lymph % (Auto) 9.0 L, [place] % (Auto) 8.4 H, Eos % (Auto) 0.2 L, Baso % (Auto) 0.2, Gran # 8.02 H , Lymph # 0.9 L, [place] # 0.8 H, Eos # 0.0, Baso # 0.02 I have reviewed the lab results: Yes Interpretation: All labs normal - RAD Interpretation Radiology Orders: 04/29/17 13:40 CHEST TWO VIEWS (PA/LAT) [RAD] Stat HISTORY: sob/coughing/weakness, r/o pna COMPARISON: No prior. TECHNIQUE: Chest PA and lateral FINDINGS: LUNGS: No active pulmonary disease. PLEURA: No significant pleural effusion identified. No pneumothorax apparent. CARDIOVASCULAR: Normal. OSSEOUS STRUCTURES: No significant abnormalities. VISUALIZED UPPER ABDOMEN: Normal. OTHER FINDINGS: None. IMPRESSION: No active disease. Proposal Consultant: Radiologist - EKG Interpretation EKG Interpretation (Text): 04/29/17 17:54 Sinus tach at 120 bpm, normal axis, no ectopy, vent hypertrophy/LVH; non- specific st-t changes, ABNL EKG; unchanged compare with old ekg 03/201704/29/17 17:55 Interpreted by ED Physician: Yes Type: 12 lead EKG Comparison: Similar to previous EKG - Medication Orders Current Medication Orders: Albuterol/Ipratropium (Duoneb 3 Mg/0.5 Mg (3 Ml) Ud) 3 ml IH Q4H JEANCARLOS Stop: 04/30/17 01:16 Arformoterol Tartrate (Brovana) 15 mcg IH [id number] JEANCARLOS Atorvastatin Calcium (Lipitor) 40 mg PO DAILY JEANCARLOS Budesonide (Pulmicort Respules) 0.5 mg IH [id number] JEANCARLOS Clopidogrel Bisulfate (Plavix) 75 mg PO DAILY JEANCARLOS Digoxin (Lanoxin) 0.25 mg PO 1400 JEANCARLOS Furosemide (Lasix) 40 mg PO DAILY JEANCARLOS Ceftriaxone Sodium (Rocephin 1 Gram Ivpb) 1 gm in 100 mls @ 100 mls/hr IVPB DAILY JEANCARLOS PRN Reason: Protocol Last Admin: 04/29/17 17:30 Dose: 100 mls/hr eMAR Start Stop Document 04/29/17 17:30 [email or web address] (Rec: 04/29/17 17:30 [email or web address] [id number]) Intravenous Solution Start Date 04/29/17 Start Time 17:30 End Date 04/29/17 Lisinopril (Zestril) 5 mg PO DAILY JEANCARLOS Methylprednisolone (Solu-Medrol) 40 mg IVP Q8 JEANCARLOS Metoprolol Tartrate (Lopressor) 25 mg PO DAILY JEANCARLOS Discontinued Medications Albuterol/Ipratropium (Duoneb 3 Mg/0.5 Mg (3 Ml) Ud) 3 ml IH Q15M JEANCARLOS Stop: 04/29/17 14:16 Last Admin: 04/29/17 14:40 Dose: 3 ml Aspirin (Aspirin Chewable) 81 mg PO STAT STA Stop: 04/29/17 13:44 Last Admin: 04/29/17 14:00 Dose: 81 mg Furosemide (Lasix) 20 mg IVP STAT STA Stop: 04/29/17 13:45 Last Admin: 04/29/17 14:20 Dose: 20 mg MAR Blood Pressure Document 04/29/17 14:20 SZA (Rec: 04/29/17 14:59 TRENTON [id number]) Blood Pressure Blood Pressure (100/60-150/90) 108/66 IVP Administration Document 04/29/17 14:20 SZA (Rec: 04/29/17 14:59 SZA [id number]) Charges for Administration # of IVP Administrations 1 Methylprednisolone (Solu-Medrol) 125 mg IVP STAT STA Stop: 04/29/17 13:44 Last Admin: 04/29/17 14:20 Dose: 125 mg IVP Administration Document 04/29/17 14:20 SZA (Rec: 04/29/17 14:56 SZA [id number]) Charges for Administration # of IVP Administrations 1 - Scribe Statement The provider has reviewed the documentation as recorded by the Ejibe Bhakti Canchola Provider Scribe Attestation: All medical record entries made by the Scribe were at my direction and personally dictated by me. I have reviewed the chart and agree that the record accurately reflects my personal performance of the history, physical exam, medical decision making, and the department course for this patient. I have also personally directed, reviewed, and agree with the discharge instructions and disposition. Disposition/Present on Arrival - Present on Arrival Any Indicators Present on Arrival: No History of DVT/PE: No History of Uncontrolled Diabetes: No Urinary Catheter: No History of Decub. Ulcer: No History Surgical Site Infection Following: None - Disposition Have Diagnosis and Disposition been Completed?: Yes Diagnosis: Shortness of breath, Asthmatic bronchitis, Chest tightness, Weakness Disposition: HOSPITALIZED Disposition Time: 17:30 Patient Plan: Admission, Observation Condition: FAIR Discharge Instructions (ExitCare): Weakness (ED) Referrals: Tom Santana DO [Primary Care Provider] - Follow up with primary Forms: [employer] ([place]ian)
[2017-04-29] MEDS: Albuterol-Ipratrop 3 mg / 0.5 (3 ml) UD IH SCH ×4 (14:00→18:59)
[2017-04-29 15:10] LABS: VENOUS BLOOD GAS BASE EXCESS 3.7 mmol/L (0.0-2.0); VENOUS BLOOD GAS PO2 94 mm/Hg (30-55); VENOUS BLOOD PH 7.43 (7.32-7.43)
[2017-04-29 15:20] LABS: BASO # 0.02 K/mm3 (0.0-2.0); BASO % 0.2 % (0.0-3.0); EOS % 0.2 % (1.5-5.0); GRAN # 8.02 (1.4-6.5); GRAN % 82.2 % (50.0-68.0); HEMOGLOBIN 13.3 g/dL (12.0-16.0); LYMPH # 0.9 (1.2-3.4); MEAN CORPUSCULAR HEMOGLOBIN 28.2 pg (25.0-35.0); MEAN CORPUSCULAR HGB CONC 31.7 g/dl (31.0-37.0); MEAN PLATELET VOLUME 10.3 fl (7.0-11.0); MONO # 0.8 (0.1-0.6); MONO % 8.4 % (1.0-6.0); RBC 4.71 10^6/uL (3.5-6.1); RED CELL DISTRIBUTION WIDTH 15.6 % (11.5-14.5); WHITE BLOOD COUNT 9.8 10^3/ul (4.5-11.0)
[2017-04-29 15:28] LABS: ALB/GLOB RATIO 1.7 (1.1-1.8); ALBUMIN 4.3 g/dL (3.0-4.8); ALT/SGPT 24 U/L (7-56); AST/SGOT 20 U/L (14-36); BLOOD UREA NITROGEN 12 mg/dL (7-21); CALCIUM 9.9 mg/dL (8.4-10.5); GFR AFRICAN-AMERICAN > 60; GFR NON-AFRICAN AMERICAN 56
[2017-04-29 15:37] LABS: B-TYPE NATRIURETIC PEPTIDE 104 pg/mL (0-450); TROPONIN I < 0.01 ng/mL
--- NOTE | 2017-04-29 15:51 | RAD ---
HISTORY: sob/coughing/weakness, r/o pna COMPARISON: No prior. TECHNIQUE: Chest PA and lateral FINDINGS: LUNGS: No active pulmonary disease. PLEURA: No significant pleural effusion identified. No pneumothorax apparent. CARDIOVASCULAR: Normal. OSSEOUS STRUCTURES: No significant abnormalities. VISUALIZED UPPER ABDOMEN: Normal. OTHER FINDINGS: None. IMPRESSION: No active disease.
[2017-04-29] MEDS ORDERED: Fluticasone-Salmeterol 250-50mcg Diskus IH PRN (17:13)
[2017-04-29] MEDS: cefTRIAXone 1 gm 1 GM/100 ML BAG IVPB SCH (17:30)
[2017-04-29] MEDS ORDERED: Oxycodone/Acetaminophen 5/325 mg Tab PO STA (18:02)
[2017-04-29] MEDS ORDERED: Arformoterol 15 mcg/2 ml Inh Sol IH SCH (20:00)
[2017-04-30] MEDS: Albuterol-Ipratrop 3 mg / 0.5 (3 ml) UD IH SCH ×2 (02:40)
[2017-04-30] MEDS: Budesonide 0.5 mg/2 ml Inhal Susp UD IH SCH ×3 (02:49→20:38)
[2017-04-30] MEDS: MethylPREDNISolone 40 mg Vial IVP SCH ×4 (02:49→21:13)
--- NOTE | 2017-04-30 04:23 | HP ---
HISTORY OF PRESENT ILLNESS: I saw her in the emergency room. She is very tight. She is breathing in heavy. I was called down because she is having an acute COPD. She has a history of asthma, and she is now going to need to be put in the hospital. She has been doing this for three days at home with nebulizers every four hours and did not improve. Failed outpatient treatment. She has been back and forth to the hospital many times, advanced with bad weather that caused the problem. PAST MEDICAL HISTORY: She has a history of [place] in 2015, stent placement, asthma, bronchitis, COPD, emphysema, pneumonia. Not sure if she is still smoking or not. She always says no, but then she was smoking outside. She wears reading glasses. She has back pains. History of tubal ligation, urinary tract infections, cardiac stents. FAMILY HISTORY: Unknown. SOCIAL HISTORY: Former smoker. No alcohol. No drugs. ALLERGIES: NO KNOWN DRUG ALLERGIES. CURRENT MEDICATIONS: She is on DuoNeb around the clock, fluticasone, Digoxin, multiple medications for the heart, and Plavix. REVIEW OF SYSTEMS: No acute vision changes. No acute hearing changes. No sore throat. There is congestion. There is shortness of breath and cough and tightness and wheezing. No chest pain or palpations. No nausea, vomiting, constipation, or diarrhea. No problems with urinating. There was back pain and myalgias. Not dizzy. No increase in urination. PHYSICAL EXAMINATION: GENERAL: She is well-appearing and nontoxic, comfortable. Alert and oriented x3 with oxygen on. HEENT: Head is atraumatic, normocephalic. Extraocular muscles are intact. Pupils are equally reactive to light and accommodation. Throat is moist. NECK: Supple. HEART: Regular rate. Normal S1 and S2. LUNGS: Decreased breath sounds bilaterally with wheezes. She is quite tight, cannot take a deep breath in, on oxygen. ABDOMEN: Soft. Nontender. Positive bowel sounds. No guarding. No rebound. No CVA tenderness. EXTREMITIES: Have no edema. She can move all four extremities fine. Mild swelling at her lower extremities and ankles. NEUROLOGIC: GCS is 15. Cranial nerves II through XII grossly intact. SKIN: Warm and dry. Alert and oriented x3. LABORATORY DATA: Chest x-ray was clear. PLAN: She will get DuoNeb with IV antibiotics, get Solu-Medrol 40 q. 8. She will be on DuoNeb q.4 around the clock. She will have a consult with Pulmonology. Hopefully, she will do well. She is on Cipro, put her on oxygen. Tom Santana DO
[2017-04-30 07:20] LABS: MEAN CELL VOLUME 88.2 fl (80.0-105.0); MEAN CORPUSCULAR HEMOGLOBIN 28.3 pg (25.0-35.0); MEAN CORPUSCULAR HGB CONC 32.1 g/dl (31.0-37.0); MEAN PLATELET VOLUME 10.1 fl (7.0-11.0); RBC 4.59 10^6/uL (3.5-6.1); RED CELL DISTRIBUTION WIDTH 15.8 % (11.5-14.5); WHITE BLOOD COUNT 9.6 10^3/ul (4.5-11.0)
[2017-04-30 07:37] LABS: ALB/GLOB RATIO 1.5 (1.1-1.8); ALBUMIN 4.3 g/dL (3.0-4.8); ALT/SGPT 23 U/L (7-56); AST/SGOT 22 U/L (14-36); BLOOD UREA NITROGEN 25 mg/dL (7-21); CALCIUM 9.4 mg/dL (8.4-10.5); GFR AFRICAN-AMERICAN > 60; GFR NON-AFRICAN AMERICAN 50
--- NOTE | 2017-04-30 08:49 | CON ---
DATE: 04/30/2017 PULMONARY CONSULTATION REASON FOR CONSULTATION: Chronic obstructive pulmonary disease. REFERRING PHYSICIAN: Tom Santana DO HISTORY OF PRESENT ILLNESS: The patient is a 61-year-old female, with past medical history significant for advanced chronic obstructive pulmonary disease, asthma, recurrent bronchitis, coronary artery disease, status post cardiac stents, and pulmonary nodule/scar left upper lobe, who presents to [facility] with increasing shortness of breath at rest, dyspnea on exertion, cough, and minimal sputum production for the past 4 days. The patient denies chest pain, coughing up of blood or chest pain - made worse with deep respirations. There is no history of temperatures, chills or infectious exposure. There is no history of night sweats, weight loss or appetite change prior to the above events. No history of leg or calf pains. No history of syncope or diaphoresis. No history of recent travel or trauma. REVIEW OF SYSTEMS: No history of nausea, vomiting or diarrhea. No acute urinary symptoms. No new neurologic or musculoskeletal complaints. Rest of the review of systems is negative. ALLERGIES: NO KNOWN ALLERGIES. SOCIAL HISTORY: Positive for extensive tobacco usage - still smokes, no alcohol. FAMILY HISTORY: No inheritable diseases. HOME MEDICATIONS: Include prednisone, metoprolol, Zestril, Lasix, Advair, Lanoxin, Plavix, Lipitor, DuoNebs, and albuterol HFA. PHYSICAL EXAMINATION: GENERAL: The patient appears comfortable this morning. She is not short of breath at rest. VITAL SIGNS: Temperature is 98.9, pulse is 104, respiratory rate is 18, blood pressure is 93/63. oxygen saturation on nasal cannula is 96-97%. HEENT: Normocephalic, atraumatic. No JVD. CARDIOVASCULAR: Positive S1, S2. No S3 gallop. LUNGS: Decreased breath sounds at the bases. Minimal rhonchi. Minimal wheezing. EXTREMITIES: No clubbing, cyanosis or edema. Calves are nontender to palpation. GASTROINTESTINAL: Abdomen is soft, nontender, and nondistended. Bowel sounds are positive. SKIN: No acute rash. NEUROLOGIC: Limited at the present time. PERTINENT LABORATORY DATA: Chest x-ray was done yesterday and reviewed. Chest x-ray is not significantly changed from the previous film. CBC: White count 9.6, hemoglobin 13.0, hematocrit 40.5, and platelets of 307,000. Complete metabolic profile: BUN 25 and glucose 138. rest of the metabolic profile is within normal limits. IMPRESSION: 1. Recurrent bronchitis. 2. Chronic obstructive pulmonary disease. 3. Asthma. 4. Coronary artery disease. 5. Pulmonary nodule/scar - left upper lobe. PLAN: The patient presents to [facility] with a 4-day history of worsening pulmonary symptoms. I did review the chest x-ray as above. The chest x-ray is not significantly changed from the previous film. On physical exam, there is mild bronchospasm noted. I will change the nebulizer treatments to half-strength Xopenex this morning, and try decreasing the intravenous steroids. The patient is also on inhaled Pulmicort. The patient is also on intravenous antibiotic therapy. There are no temperatures noted. There is no leukocytosis. The patient does feel better this morning and is clinically improved. Additional pulmonary intervention will be based on the clinical status of the patient. The patient does have a significant history of noncompliance with my office followup. 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 She is well aware that she needs to go for a repeat PET scan. However, after months of urging, she has still not made an appointment with my office. I did speak with the patient in reference to her noncompliance with office followup at length this morning. After our conversation, she did state that she will make an appointment in the very near future. Dr. Santana is well aware of the above. Thank you very much for this pulmonary consultation. Alex Mcgill MD [facility]
[2017-04-30] MEDS: Levalbuterol 0.63 MG/3 ML Inhal Soln UD IH SCH ×3 (09:12→20:38)
[2017-04-30 09:23] VITALS: RESP 20
[2017-04-30] MEDS: Promethazine DM 6.25 mg-15 mg/5 ml Syrup PO PRN ×2 (10:13→21:13)
[2017-04-30] MEDS: cefTRIAXone 1 gm 1 GM/100 ML BAG IVPB SCH (10:28)
--- NOTE | 2017-04-30 12:39 | PN ---
SUBJECTIVE: I saw her in her room this morning. She is very tight, congested, and short of breath. May be a smidgen better when she came in. She is on IV Solu-Medrol, IV Rocephin and [id number] pulmonary treatments. She is very weak and short of breath. PHYSICAL EXAMINATION: VITAL SIGNS: 98.9 temp, 114 pulse, 93/63 blood pressure, 18 respiratory rate, 96% O2 sat on nasal cannula 2 L. HEENT: Head is atraumatic, normocephalic. Throat is dry. NECK: Supple. HEART: Regular rate. LUNGS: Congested bilaterally, wheezes. She is tight. Cannot take a deep breath in, worst I have seen her. She needs a few more days. ABDOMEN: Soft, nontender. Positive bowel sounds. EXTREMITIES: Have no edema. LABORATORY DATA: She has a 9.6 white count, 13 hemoglobin, 40.5 hematocrit with a 307 platelets. She has a 138 sodium, potassium is 4.4, BUN 25, creatinine , sugar is 138, calcium is 9.4, total bili is 0.3, AST is 22, ALT is 23, alk phos 62, total protein 7.2. Negative for the flu. ASSESSMENT AND PLAN: She will be followed with Pulmonary. He lowered the Solu-Medrol. We will follow that. She is on lots of medications. She had a quick dose of Lasix intravenous last night because she was short of breath with some edema. She is not doing that well this morning. Hopefully, she will improve. She is here for chronic obstructive pulmonary disease, congestive heart failure, shortness of breath. Tom Santana DO [facility]
[2017-04-30] MEDS: Digoxin 250 mcg (0.25 mg) Tab PO SCH (13:15)
--- NOTE | 2017-04-30 15:15 | CARD ---
APPROVED REPORT EKG Measurement Heart [id number] [place] [id number] <Conclusion> Sinus tachycardia Left ventricular hypertrophy with repolarization abnormality Abnormal ECG
[2017-04-30] MEDS ORDERED: Pneumococcal 23-Valent Vaccine IM ONE (16:32)
[2017-04-30] MEDS ORDERED: Influenza Vaccine 60 mcg/0.5 mL SYR (4YR UP) IM ONE (16:32)
[2017-05-01] MEDS: Promethazine DM 6.25 mg-15 mg/5 ml Syrup PO PRN ×3 (03:30→20:08)
[2017-05-01] MEDS: Levalbuterol 0.63 MG/3 ML Inhal Soln UD IH PRN ×2 (03:37→11:29)
[2017-05-01] MEDS: Levalbuterol 0.63 MG/3 ML Inhal Soln UD IH SCH ×4 (03:52→22:19)
[2017-05-01 07:16] LABS: HEMOGLOBIN 12.6 g/dL (12.0-16.0); MEAN CELL VOLUME 89.5 fl (80.0-105.0); MEAN CORPUSCULAR HEMOGLOBIN 28.1 pg (25.0-35.0); MEAN CORPUSCULAR HGB CONC 31.3 g/dl (31.0-37.0); MEAN PLATELET VOLUME 10.5 fl (7.0-11.0); RBC 4.49 10^6/uL (3.5-6.1); RED CELL DISTRIBUTION WIDTH 15.9 % (11.5-14.5); WHITE BLOOD COUNT 13.1 10^3/ul (4.5-11.0)
--- NOTE | 2017-05-01 07:25 | PN ---
DATE: 05/01/2017 PULMONARY NOTE SUBJECTIVE: The patient appears comfortable this morning. She is not short of breath at rest. PHYSICAL EXAMINATION: VITAL SIGNS: Last temperature recorded is 99.5, pulse 89, respirations 18/20, blood pressure 110/64. Oxygen saturation on nasal cannula is 97%. HEENT: Normocephalic, atraumatic. NECK: No JVD. CARDIOVASCULAR: Positive S1, S2. No S3 gallop. LUNGS: Improved breath sounds at the bases. Less rhonchi. No wheezing this morning. EXTREMITIES: No clubbing, cyanosis or edema. Calves are nontender to palpation. GI: Abdomen is soft, nontender and nondistended. Bowel sounds are positive. SKIN: No acute rash. NEUROLOGIC: Exam limited at the present time. IMPRESSION: 1. Recurrent bronchitis. 2. Advanced chronic obstructive pulmonary disease. 3. Asthma. 4. Coronary artery disease. 5. Pulmonary nodule/scar - left upper lobe. PLAN: The patient appears comfortable this morning. She is not short of breath at rest. She is less dyspneic on exertion. She states to feeling much better this morning. On physical exam, there is certainly less bronchospasm noted. In addition, the oxygen saturation on nasal cannula is now 97%. I will continue the current nebulizer treatments and decrease the intravenous steroids this morning. The patient remains on antibiotic therapy. Repeat a.m. labs are pending. Clinical status of the patient is significantly improved. The patient is advised to be out of bed as much as she can. I will discuss the above with Dr. Santana. Alex Mcgill MD [facility]
[2017-05-01 07:54] LABS: ALB/GLOB RATIO 1.4 (1.1-1.8); ALBUMIN 3.8 g/dL (3.0-4.8); ALT/SGPT 34 U/L (7-56); AST/SGOT 28 U/L (14-36); BLOOD UREA NITROGEN 30 mg/dL (7-21); CALCIUM 9.2 mg/dL (8.4-10.5); GFR AFRICAN-AMERICAN > 60; GFR NON-AFRICAN AMERICAN 50
[2017-05-01] MEDS: Budesonide 0.5 mg/2 ml Inhal Susp UD IH SCH ×2 (07:54→22:20)
[2017-05-01] MEDS ORDERED: Sod Polystyrene Sulf 15 gm/60 ml Susp PO ONE (09:28)
[2017-05-01] MEDS: MethylPREDNISolone 40 mg Vial IVP SCH ×2 (10:02→22:50)
[2017-05-01] MEDS: cefTRIAXone 1 gm 1 GM/100 ML BAG IVPB SCH (10:02)
[2017-05-01] MEDS: Digoxin 250 mcg (0.25 mg) Tab PO SCH (13:50)
[2017-05-01 13:52] VITALS: PULSE 82
--- NOTE | 2017-05-01 14:58 | PN ---
SUBJECTIVE: I saw Lelo resting comfortably in bed. She told me that she is doing a little bit better, but when she got up to walk to the bathroom, she got short of breath. She is trying to eat, may be less wheeze but still coughing. PHYSICAL EXAMINATION: VITAL SIGNS: 99.5 temp, 89 pulse, 110/64 blood pressure, 20 respiratory rate, 97% O2 sat on 2 L nasal cannula. HEENT: Head is atraumatic, normocephalic. Throat is moist. NECK: Supple. HEART: Regular rate. LUNGS: Decreased breath sounds bilaterally. No wheezes, rhonchi, or rales but very poor inspiration, almost no air movements at all but better than the other day . ABDOMEN: Soft. EXTREMITIES: No edema. MEDICATIONS: She is currently on Flexeril, Lanoxin, Lasix, Lipitor, Lopressor, Phenergan DM, Plavix, Pulmicort, Rocephin, Solu-Medrol is now down to 30 q. 12 h. by the radio producer, Ultram, Xopenex, lisinopril. LABORATORY DATA: She has a 13.1 white count from the steroids, 12.6 hemoglobin, 40.2 hematocrit with 303 platelets. 137 sodium; potassium is 5.3, I will make sure she get some Kayexalate; BUN is 30; creatinine 1.1; GFR is 50, total bili is 0.2, AST is 28, ALT is 34, alk phos is 62, total protein 6.5. ASSESSMENT AND PLAN: She is being seen by Pulmonary, thought she was improving. He decreased the Solu-Medrol. She has recurrent bronchitis, advanced chronic obstructive pulmonary disease, asthma, coronary artery disease, pulmonary nodules, high potassium. I will give her some Kayexalate. We could discharge tomorrow, see how we do. Tom Santana DO MTDD
[2017-05-02] MEDS: Levalbuterol 0.63 MG/3 ML Inhal Soln UD IH SCH ×2 (03:39→08:14)
[2017-05-02 06:37] LABS: HEMOGLOBIN 12.6 g/dL (12.0-16.0); MEAN CORPUSCULAR HGB CONC 31.1 g/dl (31.0-37.0); RBC 4.5 10^6/uL (3.5-6.1); RED CELL DISTRIBUTION WIDTH 15.9 % (11.5-14.5)
[2017-05-02 07:01] LABS: ALB/GLOB RATIO 1.4 (1.1-1.8); ALT/SGPT 38 U/L (7-56); AST/SGOT 28 U/L (14-36); BLOOD UREA NITROGEN 33 mg/dL (7-21); GFR AFRICAN-AMERICAN > 60; GFR NON-AFRICAN AMERICAN 56
[2017-05-02] MEDS: Budesonide 0.5 mg/2 ml Inhal Susp UD IH SCH (08:14)
--- NOTE | 2017-05-02 08:16 | PN ---
DATE: PULMONARY PROGRESS NOTE SUBJECTIVE: The patient appears very comfortable this morning. She is not short of breath at rest. OBJECTIVE: VITAL SIGNS (LAST NOTED IN THE COMPUTER): Temperature is 98.1, pulse is 77, respirations are 18, blood pressure is 112/76, and oxygen saturation on nasal cannula is 96%. HEENT: Normocephalic, atraumatic. No JVD. Cardiovascular: Positive S1, S2. No S3 gallop. LUNGS: Clear bilaterally this morning. EXTREMITIES: No clubbing, cyanosis or edema. Calves are nontender to palpation. GASTROINTESTINAL: Abdomen is soft, nontender, and nondistended. Bowel sounds are positive. Skin: No acute rash. NEUROLOGIC: Limited at the present time. IMPRESSION: 1. Recurrent bronchitis. 2. Advanced chronic obstructive pulmonary disease. 3. Asthma. 4. Coronary artery disease. 5. Pulmonary nodule/scar - left upper lobe. PLAN: The patient appears very comfortable this morning. She is not short of breath at rest. She is much less dyspneic on exertion. She states to feeling much, much better overall. On physical exam, her lungs are now clear. In addition, there is no significant alveolar-arterial gradient. I will continue the current nebulizer treatments and change to oral steroids this morning. The patient remains on antibiotic therapy. There are no temperatures noted. There is no leukocytosis. Clinical status of the patient is significantly improved. She is for discharge in the near future. I have again stressed the importance to her this morning - in reference to follow up with me in the office. I will discuss the above with Dr. Santana. Alex Mcgill MD DANTE
[2017-05-02] MEDS ORDERED: Sod Polystyrene Sulf 15 gm/60 ml Susp PO ONE (09:00)
[2017-05-02] MEDS: cefTRIAXone 1 gm 1 GM/100 ML BAG IVPB SCH (09:31)
[2017-05-02 09:50] VITALS: BP 149/93; PULSE 110; TEMP 98.6; O2SAT 89
--- NOTE | 2017-05-03 02:48 | DS ---
HISTORY OF PRESENT ILLNESS: She did well. I discussed with Pulmonology, should be discharged today. She will go on her regular medication plus she will be on prednisone 40 mg for 3 days, 30 for 3 days, 20 for 3 days and 10 for 3 days, and stop, also Ceftin 500 mg twice a day for 5 days and stop. She has all other medications. PHYSICAL EXAMINATION: VITAL SIGNS: She has a 98.1 temperature, 77 pulse, 112/76 blood pressure, 20 respiratory rate and 96% O2 sat on 2 L of nasal cannula. HEENT: Head is atraumatic and normocephalic. Throat is moist. NECK: Supple. HEART: Regular rate. LUNGS: Clear to auscultation. Breathing deeper and longer breath. No wheezes, rhonchi or rales. ABDOMEN: Soft and nontender. Positive bowel sounds. EXTREMITIES: No edema. LABORATORY DATA: She has a 10 white count, 12.6 hemoglobin, 40.5 hematocrit with 317 platelets. She has a 137 sodium, potassium is 5.2, I will give her Kayexalate. She has a BUN of 33, creatinine is 1, GFR is 56, sugar is 146, calcium is 9, total bilirubin is 0.3, AST is 28, ALT is 38, alkaline phosphatase is 56 and total protein is 6.9. PLAN: Overall, I think she is doing well. If she is improved, should be discharged. We will get her a note to go back to work when she wants to go back to work and this a discharge summary, Lelo Denton who had COPD, bronchitis and CHF. I will see her in the office next week. Tom Santana DO
[2017-05-03] MEDS ORDERED: Cefpodoxime (Vantin) 200 mg Tab PO SCH (10:00)
== END 2017-05-02 13:38 | disposition home or self-care (01) | DRG 192 ==
LOC: ED 12:58 → ERH 17:35 → INTOOBSV 17:35 → OBSVTOIN 17:35 → ERH 04-30 08:50 → 5RNO 04-30 10:06
PROVIDERS: ADMIT Family Medicine; ATTEND Family Medicine
DX: J43.9 Emphysema, unspecified (principal); I50.9 Heart failure, unspecified; F17.210 Nicotine dependence, cigarettes, uncomplicated; I25.10 Atherosclerotic heart disease of native coronary artery without angina pectoris; I25.2 Old myocardial infarction; R91.1 Solitary pulmonary nodule; Z91.19 Patient's noncompliance with other medical treatment and regimen; Z87.01 Personal history of pneumonia (recurrent); Z95.5 Presence of coronary angioplasty implant and graft; Z98.51 Tubal ligation status

== ENCOUNTER 2017-06-13 13:33 | Inpatient (IN) | payer OTHER ==
[2017-06-13 13:38] VITALS: BMI 28.3
[2017-06-13] MEDS ORDERED: Aspirin 325 mg EC Tablets PO STA (13:52)
[2017-06-13] MEDS ORDERED: Magnesium Sulfate 1 gm in D5W 1 GM/100 ML BAG IVPB ONE (13:54)
--- NOTE | 2017-06-13 13:57 | ED PDOC ---
Arrival/HPI - General Chief Complaint: Shortness Of Breath Time Seen by Provider: 06/13/17 13:52 Historian: Patient - History of Present Illness Narrative History of Present Illness (Text): 06/13/17 13:56 pt p/w 3-4 days onset of sob/wheezing, coughing, non-productive; pt has been using her as needed Oxygen constantly over the last few days; pt states she is quickly winded when she exert herself; pt + easily fatigued/weak; no fever/ chills/sweats, + substernal chest tightness, non-radiating; + sore throat, no abd pain, no appetite, no n/v, no urinary changes, + non-bloody diarrhea; pt states + dizziness/lightheadedness, no LOC, no anegl, no fall/trauma/sick contact, no travel; pt states she has been using her nebulizers daily without significant improvements; pt is here for further eval; pt's without other medical complaints. PCP: Bernie BARAJAS: Lynnette Time/Duration: < week Symptom Onset: Gradual Symptom Course: Worsening Quality: Cramping Severity Level: 5 Activities at Onset: Rest Context: Home Past Medical History - Provider Review Nursing Documentation Reviewed: Yes - Travel History Have you recently traveled outside [place] w/in the past 3 mons?: No - Past History Past History: No Previous - Infectious Disease Hx of Infectious Diseases: None - Tetanus Immunization Tetanus Immunization: Unknown - Reproductive Menopause: Yes - Past Medical History Past Medical History: No Previous - Cardiac Hx Cardiac Disorders: Yes (mi 2014) Hx Pacemaker: No Hx Peripheral Edema: Yes (ble +1) Other/Comment: stent placement - Pulmonary Hx Respiratory Disorders: Yes Hx Asthma: Yes Hx Bronchitis: Yes Hx Chronic Obstructive Pulmonary Disease (COPD): Yes Hx Emphysema: Yes Hx Pneumonia: Yes Other/Comment: has home nebulizer and home o2 - Neurological Hx Neurological Disorder: No Hx Alzheimer's Disease: No HX Cerebrovascular Accident: No Hx Dementia: No Hx Dizziness: No Hx Meningitis: No Hx Migraine: No Hx Parkinson's Disease: No Hx Seizures: No Hx Transient Ischemic Attacks (TIA): No - HEENT Hx HEENT Disorder: Yes (reading glasses) - Renal Hx Renal Disorder: No - Endocrine/Metabolic Hx Endocrine Disorders: No - Hematological/Oncological Hx Blood Disorders: No Hx AIDS: No Hx Anemia: No Hx Cancer: No Hx Chemotherapy: No Hx Cirrhosis: No Hx Hepatitis A: No Hx Hepatitis B: No Hx Hepatitis C: No Hx Metastasis: No Hx Shingles: No Hx Unexplained Bleeding: No - Integumentary Hx Dermatological Disorder: No - Musculoskeletal/Rheumatological Hx Musculoskeletal Disorders: Yes Hx Falls: No - Gastrointestinal Hx Gastrointestinal Disorders: No - Genitourinary/Gynecological Hx Genitourinary Disorders: Yes (TUBAL LIGATION) Hx Urinary Tract Infection: Yes - Psychiatric Hx Emotional Abuse: No Hx Physical Abuse: No Hx Substance Use: No - Past Surgical History Past Surgical History: Non-Contributing - Surgical History Hx Cardiac Catheterization: Yes (stent) Hx Coronary Stent: Yes (10/19/2014) Other/Comment: HX OF TUBAL LIGATION 1986 - Anesthesia Hx Anesthesia: Yes Hx Anesthesia Reactions: No Hx Malignant Hyperthermia: No - Suicidal Assessment Feels Threatened In Home Enviroment: No Family/Social History - Physician Review Nursing Documentation Reviewed: Yes Family/Social History: No Known Family HX Smoking Status: Former Smoker Hx Alcohol Use: No Hx Substance Use: No Hx Substance Use Treatment: No Allergies/Home Meds Allergies/Adverse Reactions: Allergies No Known Allergies Allergy (Verified 04/30/17 10:14) Home Medications: Home Meds Medication Instructions Recorded Confirmed Albuterol/Ipratropium [Duoneb 3 3 ml IH [id number] PRN 08/12/16 04/30/17 mg/0.5 mg (3 ml) UD] Fluticasone/Salmeterol [Advair 1 puff IH PRN PRN 12/17/16 04/30/17 250-50 Diskus] Review of Systems - Review of Systems Constitutional: Fatigue Eyes: Normal ENT: Normal Respiratory: SOB, Cough, Wheezing Cardiovascular: Chest Pain Gastrointestinal: Diarrhea, Nausea, Appetite Changes Genitourinary Female: Normal Musculoskeletal: Normal Skin: Normal Neurological: Dizziness Endocrine: Normal Hemo/Lymphatic: Normal Psychiatric: Normal Physical Exam Vital Signs Reviewed: Yes Vital Signs Temp Pulse Resp BP Pulse Ox 06/13/17 17:50 19 95 06/13/17 16:20 96 H 18 125/79 100 06/13/17 14:40 88 19 134/78 100 06/13/17 14:18 140/82 06/13/17 13:37 97.8 F 96 H 21 140/82 97 Temperature: Afebrile Blood Pressure: Hypertensive Pulse: Regular Respiratory Rate: Normal Appearance: Positive for: Well-Appearing, Other (alert/awake, GCS = 15, oriented x 3, uncomfortable, resting in bed, NAD) Pain Distress: None Mental Status: Positive for: Alert and Oriented X 3 - Systems Exam Head: Present: Atraumatic, Normocephalic Pupils: Present: PERRL, Other (no nystagmus, no photophobia, sclera anicteric) Extroacular Muscles: Present: EOMI Conjunctiva: Present: Normal Ears: Present: Normal Mouth: Present: Other (mild dry oral mucosa, fair dentitions, no drooling/ stridor, no exudate/lesions, uvula/tongue are midline) Pharnyx: Present: Normal Nose (External): Present: Atraumatic Nose (Internal): Present: Normal Inspection Neck: Present: Normal Range of Motion, Trachea Midline. No: MIDLINE TENDERNESS Respiratory/Chest: Present: Other (coarse breath sounds, bibasiliar wheezing noted, no asymmetric breath sounds, poor aerations, mild tachypenia, pt is speaking in 3 words/sentences; no accessory muscle use noted, no rales/rhonchi) Cardiovascular: Present: Regular Rate and Rhythm, Normal S1, S2, Other (no murmur, no tachycardia) Abdomen: Present: Normal Bowel Sounds, Other (well nourished female, no focal tenderness, no masses/rebound/guarding, no hilario's sign, no mcburney's point tenderness) Back: Present: Normal Inspection, Other (no focal tenderness, no masses/rebound/ guarding/rigidity). No: CVA Tenderness Upper Extremity: Present: Normal Inspection, Normal ROM, NORMAL PULSES, Capillary Refill < 2s, Other (intact ROM, strength 5/5 grossly intact in all limbs, neurovasc intact b/l) Lower Extremity: Present: Normal Inspection, Edema (+1/5 mild edema b/l up to mid-tib/fib region, no pitting edema; no leonora's sign), NORMAL PULSES, Normal ROM, Neurovascularly Intact. No: CALF TENDERNESS Neurological: Present: GCS=15, CN II-XII Intact, Speech Normal Skin: Present: Warm, Normal Color, Other (cap refill < 1s, no ulcerations, no petechiae) Psychiatric: Present: Alert, Oriented x 3 Medical Decision Making ED Course and Treatment: 06/13/17 13:56 Impression: sob, weakness/lightheadedness, mild chest pain i have consider all the differential diagnosis regarding pt's chief medical complaints/clinical findings, including but are not limited to: r/o chf Differential Diagnosis included but are not limited to: A/P: 06/13/2017 15:50 Chest X-ray IMPRESSION: No active pulmonary disease. Dictator: Amena Spencer MD 06/13/17 15:02 after treatments, pt felt improved pt is able to converse easier pt is made aware of her medical results pt agrees with admission 1700 - i spoke to Dr Bernie Santana, pt's PCP, made aware, agrees with admission, would like Pulm consulted Re-evaluation Time: 16:31 Reassessment Condition: Improving,but remains with symptoms - Critical Care Critical Care Minutes: 45 minutes Critical Care Time: Excluding Proc Time Narrative Critical Care (Text): 06/13/17 19:03 critical care time: 45min, excluding procedure time, excluding time teaching residents/students/mid-level providers; including initial eval/diagnosis, diagnostic interpretation, re-eval, consultations, final disposition - Lab Interpretations Lab Results: 06/13/17 14:25 06/13/17 14:25 Lab Results 06/13/17 15:04: Urine Color Yellow, Urine Appearance Sl cloudy, Urine pH 6.0, Ur Specific [place] 1.015, Urine Protein Negative, Urine Glucose (UA) Negative, Urine Ketones Negative, Urine Blood Negative, Urine Nitrate Negative, Urine Bilirubin Negative, Urine Urobilinogen 0.2, Ur Leukocyte Esterase Small H, Urine RBC 0 - 2, Urine WBC 1 - 3, Ur Epithelial Cells 1 - 3, Urine Bacteria Few , Urine Other Trichomonas 06/13/17 14:25: Sodium 145, Chloride 106, Potassium 3.3 L, Carbon Dioxide 29, Anion Gap 13, BUN 15, Creatinine 0.9, Est GFR ( Amer) > 60, Est GFR (Non- Af Amer) > 60, Random Glucose 97, Calcium 9.2, Total Bilirubin 0.3, AST 17, ALT 29, Alkaline Phosphatase 66, Lactate Dehydrogenase 610, Total Creatine Kinase 113, Troponin I < 0.01, NT-Pro-B Natriuret Pep 120, Total Protein 6.5, Albumin 3.7, Globulin 2.8, Albumin/Globulin Ratio 1.3 06/13/17 14:25: pO2 88 H, VBG pH 7.43, VBG pCO2 48.0, VBG HCO3 31.9 H, VBG Total CO2 33.4 H, VBG O2 Sat (Calc) 99.0 H, VBG Base Excess 6.4 H, VBG Potassium 3.2 L, Sodium 142.0, Chloride 108.0 H, Glucose 97, Lactate 0.7, FiO2 21.0, Venous Blood Potassium 3.2 L 06/13/17 14:25: WBC 12.2 H D, RBC 4.46, Hgb 12.6, Hct 39.6, MCV 88.8, MCH 28.3, MCHC 31.8, RDW 15.7 H, Plt Count 354, MPV 9.9, Gran % 64.0, Lymph % (Auto) 28.8 , Shannon % (Auto) 6.2 H, Eos % (Auto) 0.8 L, Baso % (Auto) 0.2, Gran # 7.81 H, Lymph # (Auto) 3.5 H, Shannon # (Auto) 0.8 H, Eos # (Auto) 0.1, Baso # (Auto) 0.02 I have reviewed the lab results: Yes Interpretation: All labs normal - RAD Interpretation Radiology Orders: 06/13/17 13:52 CHEST TWO VIEWS (PA/LAT) [RAD] Stat HISTORY: COMPARISON: 04/29/2017 TECHNIQUE: Chest PA and lateral FINDINGS: LINES AND TUBES: None. LUNG AND PLEURA: The lungs are well inflated and clear. HEART AND MEDIASTINUM: The heart is not enlarged. The hilar and mediastinal contours are within normal limits. SKELETAL STRUCTURES: The bony structures are within normal limits for the patient's age. VISUALIZED UPPER ABDOMEN: Normal. OTHER FINDINGS: None. IMPRESSION: No active pulmonary disease. Lug Breaker And Wire Puller: Radiologist - EKG Interpretation EKG Interpretation (Text): 06/13/17 19:04 sinus rhythm at 95 bpm, borderline 1st degree av block, normal axis, no ectopy, non-specific st-t changes, ABNL EKG; unchanged compare with old ekg 04/2017 Interpreted by ED Physician: Yes Type: 12 lead EKG Comparison: Similar to previous EKG - Medication Orders Current Medication Orders: Albuterol/Ipratropium (Duoneb 3 Mg/0.5 Mg (3 Ml) Ud) 3 ml IH Q6 JEANCARLOS Stop: 06/14/17 12:01 Atorvastatin Calcium (Lipitor) 40 mg PO DAILY JEANCARLOS Clopidogrel Bisulfate (Plavix) 75 mg PO DAILY [facility] Digoxin (Lanoxin) 0.25 mg PO DAILY JEANCARLOS Furosemide (Lasix) 20 mg IVP DAILY [facility] Ceftriaxone Sodium (Rocephin 1 Gram Ivpb) 1 gm in 100 mls @ 100 mls/hr IVPB DAILY JEANCARLOS PRN Reason: Protocol Azithromycin (Zithromax 500mg In Ns) 500 mg in 250 mls @ 167 mls/hr IVPB DAILY JEANCARLOS PRN Reason: Protocol Lisinopril (Zestril) 5 mg PO DAILY JEANCARLOS Methylprednisolone (Solu-Medrol) 40 mg IVP BID [facility] Metoprolol Tartrate (Lopressor) 25 mg PO DAILY [facility] Promethazine HCl/Dextromethorphan (Phenergan Dm Syrup) 5 ml PO Q6H PRN PRN Reason: Cough Discontinued Medications Acetaminophen (Tylenol 325mg Tab) 650 mg PO STAT STA Stop: 06/13/17 16:39 Albuterol/Ipratropium (Duoneb 3 Mg/0.5 Mg (3 Ml) Ud) 3 ml IH Q15M JEANCARLOS Stop: 06/13/17 14:31 Last Admin: 06/13/17 14:36 Dose: 3 ml Aspirin (Ecotrin) 325 mg PO STAT STA Stop: 06/13/17 13:53 Last Admin: 06/13/17 14:18 Dose: 325 mg Furosemide (Lasix) 20 mg IVP STAT STA Stop: 06/13/17 13:53 Last Admin: 06/13/17 14:18 Dose: 20 mg MAR Blood Pressure Document 06/13/17 14:18 OCS (Rec: 06/13/17 14:18 OCS [facility] [id number]) Blood Pressure Blood Pressure (100/60-150/90) 140/82 IVP Administration Document 06/13/17 14:18 OCS (Rec: 06/13/17 14:18 OCS [facility] [id number]) Charges for Administration # of IVP Administrations 1 Magnesium Sulfate/Dextrose (Magnesium Sulfate 1 Gm/100 Ml D5w) 1 gm in 100 mls @ 100 mls/hr IVPB ONCE ONE Stop: 06/13/17 14:53 Last Admin: 06/13/17 14:18 Dose: 100 mls/hr eMAR Start Stop Document 06/13/17 14:18 OCS (Rec: 06/13/17 14:18 OCS [facility] [id number]) Intravenous Solution Start Date 06/13/17 Start Time 14:18 End Date 06/13/17 End time 15:18 Total Infusion Time 60 Methylprednisolone (Solu-Medrol) 125 mg IVP STAT STA Stop: 06/13/17 14:14 Last Admin: 06/13/17 14:36 Dose: 125 mg IVP Administration Document 06/13/17 14:36 OCS (Rec: 06/13/17 14:36 OCS [facility] [id number]) Charges for Administration # of IVP Administrations 1 Potassium Chloride (K-Dur 20 Meq Er Tab) 20 meq PO STAT STA Stop: 06/13/17 18:45 Disposition/Present on Arrival - Present on Arrival Any Indicators Present on Arrival: No History of DVT/PE: No History of Uncontrolled Diabetes: No Urinary Catheter: No History of Decub. Ulcer: No History Surgical Site Infection Following: None - Disposition Have Diagnosis and Disposition been Completed?: Yes Diagnosis: COPD with exacerbation, Shortness of breath, Chest pain with moderate risk of acute coronary syndrome, Weakness Disposition: HOSPITALIZED Disposition Time: 18:00 Patient Plan: Admission Patient Problems: Current Active Problems Problem Status Onset COPD with exacerbation Acute Chest pain with moderate risk of acute coronary syndrome Acute Shortness of breath Acute Weakness Acute Condition: STABLE Discharge Instructions (ExitCare): Chest Pain (ED), Weakness (ED) Referrals: Tom Santana DO [Primary Care Provider] - Follow up with primary Forms: [employer] ([place])
[2017-06-13] MEDS: Albuterol-Ipratrop 3 mg / 0.5 (3 ml) UD IH SCH ×3 (14:19→19:18)
[2017-06-13 14:36] LABS: BASO # 0.02 K/mm3 (0.0-2.0); BASO % 0.2 % (0.0-3.0); EOS # 0.1 (0.0-0.7); EOS % 0.8 % (1.5-5.0); GRAN # 7.81 (1.4-6.5); HEMOGLOBIN 12.6 g/dL (12.0-16.0); LYMPH # 3.5 (1.2-3.4); LYMPH % 28.8 % (22.0-35.0); MEAN CELL VOLUME 88.8 fl (80.0-105.0); MEAN CORPUSCULAR HEMOGLOBIN 28.3 pg (25.0-35.0); MEAN CORPUSCULAR HGB CONC 31.8 g/dl (31.0-37.0); MEAN PLATELET VOLUME 9.9 fl (7.0-11.0); MONO # 0.8 (0.1-0.6); MONO % 6.2 % (1.0-6.0); RBC 4.46 10^6/uL (3.5-6.1); RED CELL DISTRIBUTION WIDTH 15.7 % (11.5-14.5); WHITE BLOOD COUNT 12.2 10^3/ul (4.5-11.0)
[2017-06-13 14:37] LABS: VENOUS BLOOD GAS BASE EXCESS 6.4 mmol/L (0.0-2.0); VENOUS BLOOD GAS PO2 88 mm/Hg (30-55); VENOUS BLOOD PH 7.43 (7.32-7.43)
[2017-06-13 14:46] LABS: ALB/GLOB RATIO 1.3 (1.1-1.8); ALBUMIN 3.7 g/dL (3.0-4.8); ALT/SGPT 29 U/L (7-56); AST/SGOT 17 U/L (14-36); BLOOD UREA NITROGEN 15 mg/dL (7-21); CALCIUM 9.2 mg/dL (8.4-10.5); GFR AFRICAN-AMERICAN > 60; GFR NON-AFRICAN AMERICAN > 60
[2017-06-13 14:58] LABS: B-TYPE NATRIURETIC PEPTIDE 120 pg/mL (0-450); TROPONIN I < 0.01 ng/mL
[2017-06-13 15:34] LABS: URINE BILIRUBIN NEGATIVE (NEGATIVE); URINE BLOOD NEGATIVE (NEGATIVE); URINE GLUCOSE (UA) NEGATIVE (NEGATIVE); URINE LEUKOCYTE ESTERASE SMALL Leu/uL (NEGATIVE); URINE NITRATE NEGATIVE (NEGATIVE); URINE PROTEIN NEGATIVE mg/dL (<30 mg/dL); URINE UROBILINOGEN 0.2 E.U./dL (<1 E.U./dL)
[2017-06-13 15:41] LABS: URINE APPEARANCE SL CLOUDY (CLEAR); URINE COLOR YELLOW (YELLOW)
--- NOTE | 2017-06-13 15:52 | RAD ---
HISTORY: COMPARISON: 04/29/2017 TECHNIQUE: Chest PA and lateral FINDINGS: LINES AND TUBES: None. LUNG AND PLEURA: The lungs are well inflated and clear. HEART AND MEDIASTINUM: The heart is not enlarged. The hilar and mediastinal contours are within normal limits. SKELETAL STRUCTURES: The bony structures are within normal limits for the patient's age. VISUALIZED UPPER ABDOMEN: Normal. OTHER FINDINGS: None. IMPRESSION: No active pulmonary disease.
[2017-06-13 15:54] LABS: URINE BACTERIA FEW (NEG); URINE RBC 0 - 2 /hpf (0-2)
[2017-06-13] MEDS ORDERED: Potassium Chloride 20 mEq ER Tab PO STA (18:44)
[2017-06-13] MEDS: Promethazine DM 6.25 mg-15 mg/5 ml Syrup PO PRN (21:16)
[2017-06-14] MEDS ORDERED: Albuterol-Ipratrop 3 mg / 0.5 (3 ml) UD IH SCH
[2017-06-14] MEDS: Promethazine DM 6.25 mg-15 mg/5 ml Syrup PO PRN ×2 (02:21→22:44)
[2017-06-14] MEDS ORDERED: Albuterol-Ipratrop 3 mg / 0.5 (3 ml) UD IH PRN (06:37)
--- NOTE | 2017-06-14 07:36 | HP ---
HISTORY OF PRESENT ILLNESS: I know Lelo for many years, multiple hospital visits. She comes in to [facility], not feeling well. She had 3 to 4 days of shortness of breath, wheezing, coughing, it has got much worse and she asked a family member to drive her to the Emergency Room. She quickly got winded, easily fatigued, substernal chest tightness, difficult to get air and came to the emergency room. She has done this numerous times in the past. PAST MEDICAL HISTORY: She has a past medical history of COPD. She had an NV in 2015; peripheral edema; stent placement; asthma; bronchitis; COPD; emphysema; pneumonia, has home nebulizer, home oxygen. She wears glasses. She had tubal ligation. She had multiple urinary tract infections, coronary artery stent, cardiac cath, history of tubal ligation. FAMILY HISTORY: Hypertension in the family. SOCIAL HISTORY: Former smoker, actually she is still smoking. No alcohol, no drugs. ALLERGIES: NO KNOWN DRUG ALLERGIES. MEDICATIONS: Albuterol, Advair, DuoNebs, aspirin, digoxin, Lasix, Lipitor, metoprolol, Plavix, lisinopril. She had been doing well for about six weeks and now she is back, not feeling well again. REVIEW OF SYSTEMS: She is very tired, no acute vision or hearing changes. No sore throat, difficult to get air when she is short of breath. She is coughing. She is wheezing. Not feeling well. There is chest pain. There is diarrhea, nausea. No problems urinating. No back pain. No skin ulcers or rashes. She is a little bit dizzy. No anxiety or depression. No nervousness, no sweating. PHYSICAL EXAMINATION GENERAL: Well appearing, mildly discomfort. VITAL SIGNS: Temperature 97.8, 96 pulse, 21 respiratory rate, 140/82 blood pressure, 100% O2 sat on 3 liters. HEENT: Head is atraumatic, normocephalic. Pupils are equal and reactive to light. Extraocular muscles are intact. Throat is moist. NECK: Supple. HEART: Regular rate. Normal S1, S2. LUNGS: Decreased breath sounds bilaterally, wheezing, congestion very tight. Could barely take a deep breath, said she would get a cough. EXTREMITIES: Have +1/4 pitting edema to the feet, which is new for her. NEUROLOGIC: GCS is 15. Cranial nerves II through XII grossly intact. Speech is normal. Alert and oriented x3. SKIN: Warm and dry. LYMPHATICS: Thyroid is midline. No palpable appreciable lymphadenopathy. LABORATORY DATA: She had multiple labs. She has 145 sodium, potassium is 3.3, I gave her some potassium, BUN 13, creatinine 0.9, GFR is greater than 60, sugar is 97, calcium is 9.2, total bilirubin is 0.3, AST is 17, ALT is 29, alkaline phosphatase is 66, lactate dehydrogenase is 610, total creatine kinase is 113, troponin I is less than 0.01, BNP is 120, total protein is 6.5, albumin is 3.7. Urine, trichomonas, small leukocytes. She had an 88 pO2, lactate is 0.7, 12.2 white count, 12.6 hemoglobin, 39.6 hematocrit, 354,000 platelets. Chest x-ray, has no active pulmonary disease. ASSESSMENT AND PLAN: She is here for acute chronic obstructive pulmonary disease, shortness of breath. She will be on Solu-Medrol, intravenous antibiotics, oxygen, DuoNebs, Lasix. We will check in with Pulmonary and Cardiology. Thank you very much. Tom Santana DO
[2017-06-14] MEDS: Albuterol-Ipratrop 3 mg / 0.5 (3 ml) UD IH SCH ×3 (07:46→20:00)
[2017-06-14] MEDS: Budesonide 0.5 mg/2 ml Inhal Susp UD IH SCH ×2 (07:46→20:00)
[2017-06-14 07:52] LABS: HEMOGLOBIN 11.6 g/dL (12.0-16.0); MEAN CELL VOLUME 88.8 fl (80.0-105.0); MEAN CORPUSCULAR HEMOGLOBIN 27.8 pg (25.0-35.0); MEAN CORPUSCULAR HGB CONC 31.3 g/dl (31.0-37.0); MEAN PLATELET VOLUME 10.4 fl (7.0-11.0); RBC 4.18 10^6/uL (3.5-6.1); RED CELL DISTRIBUTION WIDTH 15.8 % (11.5-14.5); WHITE BLOOD COUNT 13.8 10^3/ul (4.5-11.0)
[2017-06-14 08:47] LABS: ALB/GLOB RATIO 1.5 (1.1-1.8); ALBUMIN 3.7 g/dL (3.0-4.8); ALT/SGPT 34 U/L (7-56); AST/SGOT 17 U/L (14-36); BLOOD UREA NITROGEN 22 mg/dL (7-21); CALCIUM 10.2 mg/dL (8.4-10.5); GFR AFRICAN-AMERICAN > 60; GFR NON-AFRICAN AMERICAN > 60
[2017-06-14] MEDS: Digoxin 250 mcg (0.25 mg) Tab PO SCH (09:21)
[2017-06-14] MEDS: cefTRIAXone 1 gm 1 GM/100 ML BAG IVPB SCH (09:24)
[2017-06-14] MEDS: MethylPREDNISolone 40 mg Vial IVP SCH ×2 (09:25→22:40)
[2017-06-14] MEDS ORDERED: Azithromycin 500MG/NS 250ml 500 MG/250 ML BAG IVPB SCH (10:00)
[2017-06-14] MEDS ORDERED: MethylPREDNISolone 40 mg Vial IVP SCH (10:00)
--- NOTE | 2017-06-14 10:00 | CARD ---
APPROVED REPORT EKG Measurement Heart [id number] <Conclusion> Sinus rhythm PRWP Nonspecific ST and T wave abnormality
--- NOTE | 2017-06-14 10:55 | CON ---
DATE: 06/14/2017 PULMONARY CONSULTATION REASON FOR CONSULTATION: Chronic obstructive pulmonary disease. REFERRING PHYSICIAN: Tom Santana DO HISTORY OF PRESENT ILLNESS: The patient is a 61-year-old female, with past medical history significant for advanced chronic obstructive pulmonary disease, on home oxygen, extensive smoking history - still smokes, asthma, coronary artery disease, pulmonary nodule/scar left upper lobe, who presents with a 3-day history of worsening shortness of breath at rest, dyspnea on exertion, and cough. The patient denies significant sputum production. The patient also denies chest pain, coughing up of blood, or chest pain - made worse with deep respirations. There is no history of temperatures, chills or infectious exposure. There is no history of night sweats, weight loss or appetite change prior to the above events. No history of leg or calf pains. No history of syncope or diaphoresis. No history of recent travel or trauma. REVIEW OF SYSTEMS: The patient does state to some diarrhea at home. No nausea or vomiting. No abdominal pain. No acute urinary symptoms. No new musculoskeletal complaints. Rest of the review of systems is negative. ALLERGIES: NO KNOWN ALLERGIES. SOCIAL HISTORY: Positive for extensive tobacco usage - still smokes, no alcohol. FAMILY HISTORY: No inheritable diseases. HOME MEDICATIONS: Include Lopressor, Zestril, Lanoxin, Plavix, Lipitor, Phenergan, prednisone, Lasix, Advair, DuoNebs. PHYSICAL EXAMINATION GENERAL: The patient appears comfortable this morning. She is not short of breath at rest. VITAL SIGNS: Temperature is 98.1, pulse 88, respiratory rate 18, blood pressure 126/80. Oxygen saturation on nasal cannula is 97%. HEENT: Normocephalic, atraumatic. No JVD. CARDIOVASCULAR: Positive S1, S2. No S3 gallop. LUNGS: Decreased breath sounds at the bases. Minimal bilateral rhonchi. No wheezing. EXTREMITIES: No clubbing, cyanosis or edema. Calves are nontender to palpation. GI: Abdomen is soft, nontender and nondistended. Bowel sounds are positive. SKIN: No acute rash. NEUROLOGIC: Limited at the present time. PERTINENT LABORATORY DATA: Chest x-ray was done yesterday and reviewed. There is no active disease noted. CBC: White count 12.2, hemoglobin 12.6, hematocrit 39.6, platelets of 354,000. Complete metabolic profile: Potassium 3.3. Rest of the metabolic profiles within normal limits. IMPRESSION: 1. Recurrent bronchitis. 2. Advanced chronic obstructive pulmonary disease. 3. Asthma. 4. Coronary artery disease. 5. Pulmonary nodule/scar, left upper lobe. PLAN: The patient presents to [facility] with a 3-day history of worsening pulmonary symptoms. I did review the chest x-ray as above. It shows no acute disease. On physical exam, the patient is in mild bronchospasm. However, there is no significant alveolar-arterial gradient. I will continue the current nebulizer treatments and decrease the intravenous steroids this morning. I will also add inhaled Pulmicort. The patient is on Advair at home. The patient does state to feeling better this morning and is clinically improved - compared to the past few days. The patient is also on antibiotics--continue for now. The patient does have a significant history of noncompliance with my office evaluations. She also has a significant history of continued smoking. I did discuss both of these issues with her at length again this morning. I will also discuss the above with Dr. Santana later this morning. Thank you very much for this pulmonary consultation. Alex Mcgill MD MTDD
[2017-06-15] MEDS: Albuterol-Ipratrop 3 mg / 0.5 (3 ml) UD IH SCH ×2 (03:00→07:53)
--- NOTE | 2017-06-15 06:31 | CON ---
DATE: 06/14/2017 LOCATION: Room 368, bed 1. This consult is being done in behalf of Dr. Piña whom I am covering. REASON FOR CONSULTATION: Shortness of breath. The patient has history of coronary artery disease, had a stent in the past, was also told to have cardiomyopathy. HISTORY OF PRESENT ILLNESS: The patient is a 61-year-old female admitted with history that since last 3 days, the patient has been having worsening shortness of breath. Denies chest pain or palpitation. The patient had a history of heavy smoker two packs a day and she stated she stopped three weeks ago. The patient known to have coronary artery disease, has history of stent. The patient had bare-metal stent done and the patient's LV ejection fraction has been approximately 30%. PAST MEDICAL HISTORY: Advanced case of COPD, recurrent admission for shortness of breath, exacerbation of COPD, respiratory tract infection, dilated cardiomyopathy, history of coronary artery disease with bare-metal stent insertion. PERSONAL HISTORY: As mentioned, the patient smokes two packs a day, she said she stopped three weeks ago. Denies drinking. ALLERGIES: THE PATIENT DENIES ANY ALLERGIES. FAMILY HISTORY: Not significant. REVIEW OF SYSTEMS: All the systems are reviewed. Positives mentioned in the history; otherwise, negative. HOME MEDICATIONS: Included metoprolol tartrate 25 mg daily, lisinopril 5 mg daily, digoxin 0.25 daily, Plavix 75 mg daily, Lipitor 40 mg daily, prednisone, furosemide 40 mg daily, DuoNeb hand nebulizer therapy. The patient also at home on oxygen. PHYSICAL EXAMINATION VITAL SIGNS: Blood pressure 129/71, respirations 20, pulse 83, temperature 99.2. HEENT: Head is normocephalic. Pupils normal. Conjunctivae normal. Nose and throat normal. NECK: JVP low. Carotid equal. THORAX: AP diameter normal. LUNGS: No rales. CARDIOVASCULAR: S1, S2. ABDOMEN: Soft, no tenderness. No organomegaly. Bowel sounds normal. EXTREMITIES: The patient has questionable trace edema. She stated yesterday, she had some edema but has cleared now. DATA: Chest x-ray, clear. EKG showed regular sinus rhythm, poor R wave progression , nonspecific S-T changes. WBC 13.8, hemoglobin 11.6, hematocrit 37.1, platelet 357,000. Sodium 147, potassium 4.3, BUN 22, creatinine 0.8. Random glucose 120, earlier glucose 197. Troponin less than 0.01. Total protein, within normal. DIAGNOSES 1. Exacerbation of chronic obstructive pulmonary disease. 2. Respiratory tract infection. 3. History of cardiomyopathy. 4. History of coronary artery disease. 5. History of bare metal stent insertion. 6. Tobacco abuse. The patient stated that she stopped three weeks ago, used to smoke two packs a day. PLAN: This patient is getting DuoNeb hand nebulizer therapy, digoxin 0.25 mg daily, Lasix 20 mg IV daily, Lipitor 40 mg daily, metoprolol tartrate 25 mg daily, Plavix 75 daily, Rocephin 1 g IV daily, Solu-Medrol 30 mg IV q.12h., lisinopril 5 mg daily, azithromycin 500 mg IV daily and we will follow with you Adrienne Watkins MD
[2017-06-15 07:52] LABS: HEMOGLOBIN 11.7 g/dL (12.0-16.0); MEAN CELL VOLUME 90.7 fl (80.0-105.0); MEAN CORPUSCULAR HEMOGLOBIN 27.8 pg (25.0-35.0); MEAN CORPUSCULAR HGB CONC 30.6 g/dl (31.0-37.0); MEAN PLATELET VOLUME 10.3 fl (7.0-11.0); RBC 4.21 10^6/uL (3.5-6.1); RED CELL DISTRIBUTION WIDTH 16.1 % (11.5-14.5); WHITE BLOOD COUNT 18.2 10^3/ul (4.5-11.0)
[2017-06-15] MEDS: Budesonide 0.5 mg/2 ml Inhal Susp UD IH SCH (07:53)
[2017-06-15 08:23] LABS: ALB/GLOB RATIO 1.4 (1.1-1.8); ALBUMIN 3.9 g/dL (3.0-4.8); ALT/SGPT 31 U/L (7-56); AST/SGOT 20 U/L (14-36); BLOOD UREA NITROGEN 21 mg/dL (7-21); GFR AFRICAN-AMERICAN > 60; GFR NON-AFRICAN AMERICAN > 60
[2017-06-15 09:46] VITALS: PULSE 79; RESP 18; TEMP 97.8; O2SAT 95
--- NOTE | 2017-06-15 10:09 | PN ---
DATE: 06/15/2017 PULMONARY NOTE SUBJECTIVE: The patient appears very comfortable this morning. She is not short of breath at rest. PHYSICAL EXAMINATION: VITAL SIGNS: (Last noted in the computer): Temperature is 99.2, pulse 83, respirations 18, blood pressure 129/71. Oxygen saturation on nasal cannula is 100%. HEENT: Normocephalic, atraumatic. No JVD. CARDIOVASCULAR: Positive S1 and S2. No S3 gallop. LUNGS: Improved breath sounds at the bases. Very minimal/less rhonchi. No wheezing. EXTREMITIES: No clubbing, cyanosis or edema. Calves are nontender to palpation. GI: Abdomen is soft, nontender and nondistended. Bowel sounds are positive. SKIN: No acute rash. NEUROLOGIC: Limited at the present time. IMPRESSION: 1. Recurrent bronchitis. 2. Advanced chronic obstructive pulmonary disease. 3. Asthma. 4. Coronary artery disease. 5. Pulmonary nodule/scar - left upper lobe. PLAN: The patient appears very comfortable this morning. She is not short of breath at rest. She states she is feeling much, much better overall. On physical exam, only very minimal bronchospasm remains. In addition, the oxygen saturation on nasal cannula is now 100%. I will continue with the current nebulizer treatments and change to oral steroids this morning. The patient also remains on antibiotic therapy. There are no temperatures noted. There is a mild leukocytosis on yesterday's labs - most likely contributed to by the steroids. Input by Cardiology (Dr. Watkins) is also noted. Clinical status of the patient is significantly improved. She is advised to be out of bed as much as possible. She is for discharge in the near future. I will discuss the above with Dr. Santana. Alex Mcgill MD MTDD
[2017-06-15] MEDS: cefTRIAXone 1 gm 1 GM/100 ML BAG IVPB SCH (10:10)
[2017-06-15] MEDS: Digoxin 250 mcg (0.25 mg) Tab PO SCH (10:10)
[2017-06-15 10:12] VITALS: BP 104/62
[2017-06-15] MEDS ORDERED: Influenza Vaccine 60 mcg/0.5 mL SYR (4YR UP) IM ONE (11:22)
[2017-06-15 11:31] VITALS: PULSE 81
--- NOTE | 2017-06-15 16:52 | PN ---
DATE: 06/15/2017 LOCATION: Patient is room 368, bed 1. This progress note being done on behalf of Dr. Piña whom I am covering. REASON FOR CONSULTATION: Shortness of breath, history of coronary artery disease, stent in the past, was also told to have cardiomyopathy SUBJECTIVE: Patient says her breathing is much better now. Denies any chest pain, denies any palpitation. PHYSICAL EXAMINATION: VITAL SIGNS: Blood pressure 104/72, respirations 18, pulse 79, temperature 97.8. HEENT: Head is normocephalic. Eyes: Pupils normal. Conjunctivae normal. NECK: JVP low. Carotid equal. THORAX: AP diameter normal. LUNGS: No rales. CARDIOVASCULAR: S1, S2. ABDOMEN: Soft. No tenderness. No organomegaly. Bowel sounds normal. EXTREMITIES: No clubbing, no cyanosis. LABORATORY DATA: WBC 18.2, hemoglobin 11.7, hematocrit 38.2, platelets 405. Sodium 143, potassium 4.0, BUN 21, creatinine 0.9, AST and ALT normal, total protein 6.7, albumin 3.9. DIAGNOSES: Exacerbation of chronic obstructive pulmonary disease, respiratory tract infection, history of cardiomyopathy, history of coronary artery disease, history of bare-metal stent insertion, tobacco abuse, she used to smoke two packs a day, she stated that she stopped 3 weeks ago. PLAN: Patient on DuoNeb hand nebulizer therapy, digoxin 0.25 daily, furosemide 20 IV daily, Lipitor 40 daily, metoprolol 25 daily, Plavix 75 daily, prednisone 40 mg p.o. daily, lisinopril 5 mg daily, azithromycin 500 mg IV daily, ceftriaxone [address] Piña will follow up patient's studies. Adrienne Watkins MD
--- NOTE | 2017-06-16 01:19 | DS ---
ADDENDUM LABORATORY DATA: She had an 18.2 white count, which she related to the steroids; 11.7 hemoglobin; 38.2 hematocrit with a 405 platelets. She has a 143 sodium, potassium 4, BUN is 21, creatinine 0.9, GFR is greater than 60, sugar is 158, calcium is 10, total bili is 0.2, AST is 20, ALT is 31, alk phos is 71, total protein is 6.7. ASSESSMENT AND PLAN: Clinically, she is tremendously much improved, which is great. We also discussed not smoking ever again as a huge part of her disease and I really sit down with her once again to please quit smoking. Besides every office visit I have talked to her about it for the past 5 years to quit smoking, she has not quit smoking. I will see her next week in the office. She is being discharged. Tom Santana DO
--- NOTE | 2017-06-16 09:22 | PN ---
DATE: 06/14/2017 SUBJECTIVE: I saw Lelo resting comfortably in bed. She slept well last night. She is breathing a bit better today. She is on DuoNeb, Lanoxin, Lasix, Lipitor, Lopressor, Phenergan, Plavix, Pulmicort, Rocephin; Solu-Medrol, she is down to 30; Ultram, Zestril and Zithromax. PHYSICAL EXAMINATION: VITAL SIGNS: She has a 98.1 temp, 86 pulse, 122/71 blood pressure. HEENT: Head is atraumatic, normocephalic. Throat is moist. NECK: Supple. HEART: Regular rate. LUNGS: No wheezing, rhonchi or rales. Has decreased breath sounds, but clear. She is moving more air today. better. ABDOMEN: Soft, nontender. Positive bowel sounds. EXTREMITIES: No edema. LABORATORY DATA: She has a 13.8 white count, on the steroids; 11.6 hemoglobin, 37.1 hematocrit, with a 57 platelets. She has a 147 sodium, potassium 4.3, BUN 22, creatinine 0.8, GFR is greater than 60, sugar is 120, calcium is 10.2, total bili is 0.3, AST is 17, ALT is 34, alk phos 64. Troponin less than 0.01. Total protein 6.2. . ASSESSMENT AND PLAN: She has been seen by Pulmonary. We decreased the Solu-Medrol. She is starting to improve with plans to be discharged tomorrow. Has recurrent bronchitis and advanced chronic obstructive pulmonary disease, asthma, coronary artery disease, congestive heart failure. I will continue with the aggressive treatment and care, and hopefully she will not smoke anymore. Tom Santana DO MTDD
--- NOTE | 2017-06-16 09:27 | DS ---
HISTORY OF PRESENT ILLNESS: I saw her resting comfortably, sitting up in bed. She ate her breakfast as well. No shortness of breath. No congestion. No wheezing, no rhonchi, no rales. She looks good. She feels good. She is going to go home today. PHYSICAL EXAMINATION: VITAL SIGNS: She has a 99.2 temperature, 83 pulse, 129/71 blood pressure, 20 respiratory rate, 100% O2 sat on room. HEENT: Head is atraumatic, normocephalic. Throat is moist. NECK: Supple. HEART: Regular rate. LUNGS: Decreased breath sounds, but clear to auscultation. No wheezes. No rhonchi. No rales. ABDOMEN: Soft, nontender. Positive bowel sounds. EXTREMITIES: No edema. ASSESSMENT AND PLAN: She was here for advanced chronic obstructive pulmonary disease, asthma, bronchitis, congestive heart failure, coronary artery disease. She is going to go home on Duoneb, Lanoxin. She has Lasix, Lipitor, Lopressor, Phenergan DM, Plavix. She will be on prednisone 40 mg for 3 days and 30 mg for 3 days and 20 mg for 3 days and 10 mg for 3 days and stop. We are going to continue her Pulmicort one puff twice a day. She has Ultram and Zestril and she will be followed up next week in the office. Tom Santana DO
== END 2017-06-15 13:04 | disposition home or self-care (01) | DRG 191 ==
LOC: ED 13:33 → ERH 18:21 → 3RNO 20:15
PROVIDERS: ADMIT Family Medicine; ATTEND Family Medicine
DX: J44.1 Chronic obstructive pulmonary disease with (acute) exacerbation (principal); I42.0 Dilated cardiomyopathy; I50.9 Heart failure, unspecified; I25.10 Atherosclerotic heart disease of native coronary artery without angina pectoris; I25.2 Old myocardial infarction; I44.0 Atrioventricular block, first degree; F17.210 Nicotine dependence, cigarettes, uncomplicated; Z79.02 Long term (current) use of antithrombotics/antiplatelets; Z79.899 Other long term (current) drug therapy; Z82.49 Family history of ischemic heart disease and other diseases of the circulatory system; Z87.01 Personal history of pneumonia (recurrent); Z87.440 Personal history of urinary (tract) infections; Z95.5 Presence of coronary angioplasty implant and graft; Z98.51 Tubal ligation status; Z99.81 Dependence on supplemental oxygen; R40.2412 Glasgow coma scale score 13-15, at arrival to emergency department; J98.4 Other disorders of lung; Z91.19 Patient's noncompliance with other medical treatment and regimen; J98.8 Other specified respiratory disorders

== ENCOUNTER 2017-07-30 22:38 | Emergency (ER) | payer OTHER ==
[2017-07-30 22:39] VITALS: PULSE 81; BMI 28.3
[2017-07-30 23:00] VITALS: BP 128/90; PULSE 111; RESP 18; O2SAT 94
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
== END 2017-07-30 23:37 | disposition home or self-care (01) ==
LOC: ED 22:38
DX: M54.5 Low back pain (principal); Z87.891 Personal history of nicotine dependence
CPT/HCPCS: 96372; 99282; J1885

== ENCOUNTER 2017-08-15 23:04 | Observation (INO) | payer OTHER ==
[2017-08-15 23:12] VITALS: BMI 28.1
[2017-08-15] MEDS ORDERED: Albuterol 0.083% Inhal Sol (2.5 mg/3 mL) UD ONE (23:32)
[2017-08-15] MEDS ORDERED: Albuterol 0.5% Inhal Sol (2.5 mg/0.5 ml) UD IH STA (23:34)
[2017-08-15] MEDS ORDERED: Albuterol 0.083% Inhal Sol (2.5 mg/3 mL) UD IH STA (23:36)
--- NOTE | 2017-08-15 23:50 | ED PDOC ---
Arrival/HPI - General Chief Complaint: Shortness Of Breath Time Seen by Provider: 08/15/17 23:31 Historian: Patient - History of Present Illness Narrative History of Present Illness (Text): 08/15/17 23:47 61 year old female, whose past medical history includes NSTEMI, CAD with stent placement, hypertension, CHF, COPD, asthma, bronchitis, emphysema, pneumonia, and former smoker who quit 7 months ago, presents to the emergency department complaining worsening shortness of breath for over 2 days. She used her nebulizer at home without any relief of symptoms. Patient has required admission in the past, but never was intubated. Patient reports nonproductive cough, but denies any fever, chills, chest pain, nausea, vomiting, diarrhea, urinary symptoms, back pain, neck pain, headache, dizziness, or any other complaints. PMD: Dr. Santana Time/Duration: Other (2 days) Symptom Onset: Gradual Symptom Course: Worsening Activities at Onset: Light Context: Home Past Medical History - Provider Review Nursing Documentation Reviewed: Yes - Past History Past History: No Previous - Infectious Disease Hx of Infectious Diseases: None - Tetanus Immunization Tetanus Immunization: Unknown - Past Medical History Past Medical History: No Previous - Cardiac Hx Cardiac Disorders: Yes (mi 2014) Hx Pacemaker: No Hx Peripheral Edema: Yes (ble +1) Other/Comment: stent placement - Pulmonary Hx Respiratory Disorders: Yes Hx Asthma: Yes Hx Bronchitis: Yes Hx Chronic Obstructive Pulmonary Disease (COPD): Yes Hx Emphysema: Yes Hx Pneumonia: Yes Other/Comment: has home nebulizer and home o2 - Neurological Hx Neurological Disorder: No Hx Alzheimer's Disease: No HX Cerebrovascular Accident: No Hx Dementia: No Hx Dizziness: No Hx Meningitis: No Hx Migraine: No Hx Parkinson's Disease: No Hx Seizures: No Hx Transient Ischemic Attacks (TIA): No - HEENT Hx HEENT Disorder: Yes (reading glasses) - Renal Hx Renal Disorder: No - Endocrine/Metabolic Hx Endocrine Disorders: No - Hematological/Oncological Hx Blood Disorders: No Hx AIDS: No Hx Anemia: No Hx Cancer: No Hx Chemotherapy: No Hx Cirrhosis: No Hx Hepatitis A: No Hx Hepatitis B: No Hx Hepatitis C: No Hx Metastasis: No Hx Shingles: No Hx Unexplained Bleeding: No - Integumentary Hx Dermatological Disorder: No - Musculoskeletal/Rheumatological Hx Falls: No - Gastrointestinal Hx Gastrointestinal Disorders: No - Genitourinary/Gynecological Hx Genitourinary Disorders: Yes (TUBAL LIGATION) Hx Urinary Tract Infection: Yes - Psychiatric Hx Emotional Abuse: No Hx Physical Abuse: No Hx Substance Use: No - Past Surgical History Past Surgical History: Non-Contributing - Surgical History Hx Cardiac Catheterization: Yes (stent) Hx Coronary Stent: Yes (10/19/2014) Other/Comment: HX OF TUBAL LIGATION 1986 - Anesthesia Hx Anesthesia: Yes Hx Anesthesia Reactions: No Hx Malignant Hyperthermia: No - Suicidal Assessment Feels Threatened In Home Enviroment: No Family/Social History - Physician Review Nursing Documentation Reviewed: Yes Family/Social History: No Known Family HX Smoking Status: Former Smoker Hx Alcohol Use: No Hx Substance Use: No Hx Substance Use Treatment: No Allergies/Home Meds Allergies/Adverse Reactions: Allergies No Known Allergies Allergy (Verified 08/15/17 23:15) Home Medications: Home Meds Medication Instructions Recorded Confirmed Albuterol/Ipratropium [Duoneb 3 3 ml IH [id number] PRN 08/12/16 08/15/17 mg/0.5 mg (3 ml) UD] Fluticasone/Salmeterol [Advair 1 puff IH PRN PRN 12/17/16 08/15/17 250-50 Diskus] Review of Systems - Physician Review All systems were reviewed & negative as marked: Yes - Review of Systems Constitutional: absent: Fevers, Other (Chills) Respiratory: SOB, Cough Cardiovascular: absent: Chest Pain Gastrointestinal: absent: Diarrhea, Nausea, Vomiting Genitourinary Female: absent: Dysuria, Frequency, Hematuria Musculoskeletal: absent: Back Pain, Neck Pain Neurological: absent: Headache, Dizziness Physical Exam Vital Signs Reviewed: Yes Vital Signs Temp Pulse Resp BP Pulse Ox 08/15/17 23:31 18 95 08/15/17 23:24 98.1 F 76 18 136/89 96 Temperature: Afebrile Blood Pressure: Normal Pulse: Regular Respiratory Rate: Normal Appearance: Positive for: Well-Appearing, Non-Toxic, Comfortable Pain Distress: None Mental Status: Positive for: Alert and Oriented X 3 (Speaking in full sentences. Nonposturing ) - Systems Exam Head: Present: Atraumatic, Normocephalic Pupils: Present: PERRL Extroacular Muscles: Present: EOMI Conjunctiva: Present: Normal Mouth: Present: Moist Mucous Membranes. No: Drooling Pharnyx: No: Strider Neck: Present: Normal Range of Motion Respiratory/Chest: Present: Accessory Muscle Use, Wheezes (Bilateral expiratory wheezing), Decreased Breath Sounds. No: Respiratory Distress Cardiovascular: Present: Regular Rate and Rhythm, Normal S1, S2 (within normal limits). No: Murmurs Abdomen: No: Tenderness, Distention, Peritoneal Signs Back: Present: Normal Inspection Upper Extremity: Present: Normal Inspection. No: Cyanosis, Edema Lower Extremity: Present: Normal Inspection. No: Edema Neurological: Present: GCS=15, CN II-XII Intact, Speech Normal Skin: Present: Warm, Dry, Normal Color. No: Rashes Psychiatric: Present: Alert, Oriented x 3, Normal Insight, Normal Concentration Medical Decision Making ED Course and Treatment: 08/15/17 23:30 Impression: 61 year old female presents complaining of worsening shortness of breath for the past 2 days. Pt past medical history includes Asthma and quit smoking 7 months ago. Differential Diagnosis included but are not limited to: Asthma exacerbation Plan: -- EKG -- Labs -- Chest X-ray -- Albuterol, Solu-medrol -- Reassess and disposition Prior Visits: Notes and results from previous visits were reviewed. Patient was last seen in the emergency department on 04/29/17 presents complaining of shortness of breath since last night. Patient was admitted. Progress Notes: 08/16/17 01:11 CXR Impression: As read by me, No active pulmonary disease. Left Atrial enlargement. 08/16/17 01:29 Upon reevaluation, patient still has diminished breath sounds, faint expiratory wheezing with peak flow at 100. Patient has not adequately improved after one hour of neb treatment. Offered admission, but states she does not want to be admitted. I reiterated that she either stays, or has to sign out against medical advice. Patient is going to think about her options. 08/16/17 01:38 Patient agrees to being admitted. Case discussed with Dr. Santana who is aware and agrees with the plan. Accepts patient into his service with Dr. Alex Mcgill for consult. Patient will be admitted to [facility] for Asthma exacerbation. 08/16/17 01:42 EKG shows NSR at [address]/T wave changes. No ectopy. Intervals all within normal limits. Normal EKG. Interpreted by me. - Lab Interpretations Lab Results: 08/16/17 00:00 08/16/17 00:00 Lab Results 08/16/17 00:00: Sodium 143, Potassium 3.9, Chloride 106, Carbon Dioxide 28, Anion Gap 13, BUN 17, Creatinine 0.8, Est GFR ( Amer) > 60, Est GFR (Non- Af Amer) > 60, Random Glucose 114 H, Calcium 9.1, Total Bilirubin 0.2, AST 36 D , ALT 24, Alkaline Phosphatase 89, Lactate Dehydrogenase 522, Total Creatine Kinase 174, Troponin I < 0.01, NT-Pro-B Natriuret Pep 140, Total Protein 6.5, Albumin 4.0, Globulin 2.5, Albumin/Globulin Ratio 1.6 08/16/17 00:00: WBC 8.4 D, RBC 4.31, Hgb 12.1, Hct 37.5, MCV 87.0 D, MCH 28.1 , MCHC 32.3, RDW 16.0 H, Plt Count 356, MPV 9.9, Gran % 55.1, Lymph % (Auto) 34.8, [place] % (Auto) 6.2 H, Eos % (Auto) 3.5, Baso % (Auto) 0.4, Gran # 4.64, Lymph # (Auto) 2.9, [place] # (Auto) 0.5, Eos # (Auto) 0.3, Baso # (Auto) 0.03 I have reviewed the lab results: Yes - RAD Interpretation Radiology Orders: 08/15/17 23:32 CHEST PORTABLE [RAD] Stat - EKG Interpretation Interpreted by ED Physician: Yes Type: 12 lead EKG - Medication Orders Current Medication Orders: Albuterol Sulfate (Albuterol 0.083% Inhal Yoly (2.5 Mg/3 Ml) Ud) 2.5 mg IH Q2H JEANCARLOS Discontinued Medications Albuterol Sulfate (Albuterol 0.083% Inhal Yoly (2.5 Mg/3 Ml) Ud) 10 mg IH STAT STA Stop: 08/15/17 23:37 Last Admin: 08/16/17 00:37 Dose: 10 mg Methylprednisolone (Solu-Medrol) 125 mg IVP STAT STA Stop: 08/15/17 23:32 Last Admin: 08/15/17 23:33 Dose: 125 mg IVP Administration Document 08/15/17 23:33 SREGE (Rec: 08/16/17 00:37 SERGE [id number]) Charges for Administration # of IVP Administrations 1 - Scribe Statement The provider has reviewed the documentation as recorded by the Ejibe Ladi Parikh Provider Scribe Attestation: All medical record entries made by the Scribe were at my direction and personally dictated by me. I have reviewed the chart and agree that the record accurately reflects my personal performance of the history, physical exam, medical decision making, and the department course for this patient. I have also personally directed, reviewed, and agree with the discharge instructions and disposition. Disposition/Present on Arrival - Present on Arrival Any Indicators Present on Arrival: No History of DVT/PE: No History of Uncontrolled Diabetes: No Urinary Catheter: No History of Decub. Ulcer: No History Surgical Site Infection Following: None - Disposition Have Diagnosis and Disposition been Completed?: Yes Diagnosis: Asthma without status asthmaticus Disposition: HOSPITALIZED Disposition Time: 06:15 Patient Plan: Admission Condition: FAIR
[2017-08-16 00:22] LABS: BASO # 0.03 K/mm3 (0.0-2.0); BASO % 0.4 % (0.0-3.0); EOS # 0.3 (0.0-0.7); EOS % 3.5 % (1.5-5.0); GRAN # 4.64 (1.4-6.5); GRAN % 55.1 % (50.0-68.0); HEMOGLOBIN 12.1 g/dL (12.0-16.0); LYMPH # 2.9 (1.2-3.4); LYMPH % 34.8 % (22.0-35.0); MEAN CORPUSCULAR HEMOGLOBIN 28.1 pg (25.0-35.0); MEAN CORPUSCULAR HGB CONC 32.3 g/dl (31.0-37.0); MEAN PLATELET VOLUME 9.9 fl (7.0-11.0); MONO # 0.5 (0.1-0.6); MONO % 6.2 % (1.0-6.0); RBC 4.31 10^6/uL (3.5-6.1); WHITE BLOOD COUNT 8.4 10^3/ul (4.5-11.0)
[2017-08-16 00:50] LABS: ALB/GLOB RATIO 1.6 (1.1-1.8); ALT/SGPT 24 U/L (7-56); AST/SGOT 36 U/L (14-36); BLOOD UREA NITROGEN 17 mg/dL (7-21); CALCIUM 9.1 mg/dL (8.4-10.5); GFR AFRICAN-AMERICAN > 60; GFR NON-AFRICAN AMERICAN > 60
[2017-08-16 01:01] LABS: B-TYPE NATRIURETIC PEPTIDE 140 pg/mL (0-450); TROPONIN I < 0.01 ng/mL
[2017-08-16] MEDS ORDERED: Albuterol-Ipratrop 3 mg / 0.5 (3 ml) UD IH PRN (07:38)
[2017-08-16] MEDS: Albuterol-Ipratrop 3 mg / 0.5 (3 ml) UD IH SCH ×3 (08:23→19:26)
[2017-08-16] MEDS: Budesonide 0.5 mg/2 ml Inhal Susp UD IH SCH ×2 (08:24→19:26)
--- NOTE | 2017-08-16 08:45 | CON ---
DATE: 08/16/2017 PULMONARY CONSULTATION REFERRING PHYSICIAN: Tom Santana DO. REASON FOR CONSULTATION: COPD. HISTORY OF PRESENT ILLNESS: The patient is a 61-year-old female, with past medical history significant for advanced chronic obstructive pulmonary disease, asthma, recurrent bronchitis, coronary artery disease, status post cardiac stents, pulmonary nodule/scar left upper lobe, who presents to [facility] with a 2-day history of worsening shortness of breath at rest, dyspnea on exertion, cough, and sputum production. There is no history of chest pain, coughing up of blood, or chest pain-made worse with deep respirations. There is no history of temperatures, chills or infectious exposure. There is no history of night sweats, weight loss or appetite change prior to the above events. No history of leg or calf pains. No history of syncope or diaphoresis. No history of recent travel or trauma. REVIEW OF SYSTEMS: No history of nausea, vomiting or diarrhea. No acute urinary symptoms. No new neurologic complaints. Rest of the review of systems is negative. ALLERGIES: NO KNOWN ALLERGIES. SOCIAL HISTORY: Positive for extensive tobacco usage. No alcohol. FAMILY HISTORY: No inheritable diseases. HOME MEDICATIONS: Include Phenergan, prednisone, Naprosyn, Lopressor, Zestril, Lasix, Advair, Plavix,cefuroxime, Lipitor and DuoNebs. PHYSICAL EXAMINATION: GENERAL: The patient appears comfortable this morning. She is not short of breath at rest. VITAL SIGNS: Temperature is 97.8, pulse 92, respirations 18, blood pressure 140/81. Oxygen saturation on nasal cannula is 99%. HEENT: Normocephalic, atraumatic. NECK: No JVD. CARDIOVASCULAR: Positive S1, S2. No S3 gallop. LUNGS: Decreased breath sounds at the bases. Mild rhonchi bilaterally. No wheezing. EXTREMITIES: No clubbing, cyanosis or edema. Calves are nontender to palpation. GI: Abdomen is soft, nontender, nondistended. Bowel sounds are positive. SKIN: No acute rash. NEUROLOGIC: Exam limited at the present time. PERTINENT LABORATORY DATA: Chest x-ray was done and reviewed. I do not appreciate any new or significant changes-compared to the previous films. Official results are pending. CBC: White count 8.4, hemoglobin 12.1, hematocrit 37.5, platelets of 356,000. IMPRESSION: 1. Acute/recurrent bronchitis. 2. Advanced chronic obstructive pulmonary disease. 3. Asthma. 4. Coronary artery disease. 5. Pulmonary nodule/scar-left upper lobe. PLAN: The patient presents to [facility] with a 2-day history of worsening pulmonary symptoms. I did review the chest x-ray as above. I do not appreciate any new or significant changes-compared to the old films. However, official results are pending. On physical exam, the patient is in mild bronchospasm. I will start the patient on nebulizer treatments and intravenous steroids this morning. I will also start oral antibiotic therapy-given the above history. The patient does feel better this morning-and is clinically improved. I do know this patient for many years, and she is significantly noncompliant with office followup. I did discuss this issue with her again. Additional pulmonary intervention will be based on the clinical status of the patient. I did discuss the above with Dr. Santana. Thank you very much for this pulmonary consultation. Alex Mcgill MD [email or web address]
[2017-08-16] MEDS: Digoxin 250 mcg (0.25 mg) Tab PO SCH (10:32)
[2017-08-16] MEDS: levoFLOXacin 500 MG TAB PO SCH (10:33)
[2017-08-16] MEDS: MethylPREDNISolone 40 mg Vial IVP SCH ×2 (11:06→22:11)
--- NOTE | 2017-08-16 13:25 | RAD ---
HISTORY: Shortness of breath COMPARISON: Comparison chest 06/13/2017 FINDINGS: LUNGS: No active pulmonary disease. PLEURA: No significant pleural effusion identified, no pneumothorax apparent. CARDIOVASCULAR: Normal. OSSEOUS STRUCTURES: No significant abnormalities. VISUALIZED UPPER ABDOMEN: Normal. OTHER FINDINGS: None. IMPRESSION: No active disease.
--- NOTE | 2017-08-16 19:14 | HP ---
HISTORY OF PRESENT ILLNESS: I know Lelo very well from multiple hospital admissions for pneumonia, asthma, COPD exacerbation, emphysema. She is a former smoker. She comes into the emergency room being a 61-year-old female who is short of breath for a few days. She has been using a nebulizer without treatment. She is on antibiotics. She has been on steroids, has been on breathing treatments, and she is back again. PAST MEDICAL HISTORY: Includes NSTEMI, CAD, stent placement, hypertension, CHF, COPD, asthma, bronchitis, emphysema, pneumonia. She had an FL in 2015, peripheral edema history in both legs. She has had bronchitis to the home nebulizer and home O2. She wears glasses. She has a history of tubal ligation. She has history of urinary tract infections, cardiac stent placements, hypertension, diabetes in the family. She is a former smoker as of 7 months ago. No alcohol. No drugs. ALLERGIES: NO KNOWN DRUG ALLERGIES. MEDICATIONS: She takes a lot of pulmonary medications, DuoNebs, Advair, lisinopril. REVIEW OF SYSTEMS: No acute vision or hearing changes. No sore throat. There is cough. There is shortness of breath. There are fevers. No chest pain, palpitations, diarrhea, nausea, vomiting, or constipation. No problems urinating. No back pain or neck pain, but she does tell me she is in pain all over. No headache or dizziness. No skin issues that she knows of. PHYSICAL EXAMINATION: VITAL SIGNS: She has 98.1 temperature, 76 pulse, 18 respiratory rate, 136/89 blood pressure, 96% O2 sat on oxygen. GENERAL: She is alert. She is a little short of breath, little uncomfortable. Alert and oriented x3. HEENT: Head is atraumatic, normocephalic. Extraocular muscles are intact. Pupils are equal and reactive to light. Throat is moist. NECK: Supple. Thyroid midline. No palpable appreciable lymphadenopathy. HEART: Regular rate. Normal S1, S2. LUNGS: Decreased breath sounds bilaterally. There is some wheezing, expiratory. No use of accessory muscles at this time. She is having acute asthma attack. ABDOMEN: Soft, nontender. Positive bowel sounds. EXTREMITIES: No edema. NEUROLOGIC: GCS is 15. Cranial nerves II through XII grossly intact. Speech is normal. Alert and oriented x3. SKIN: Warm and dry. No apparent rashes or ulcers. LABORATORY DATA: She has 143 sodium, potassium 3.9. BUN 17, creatinine 0.8. GFR is greater than 60. Sugar is 114. Calcium is 9.1. Total bili is 0.2, AST is 36, ALT is 24, alkaline phosphatase , total creatinine kinase 174. Troponin I is less than 0.01. BNP is 140. Total protein 6.5, albumin is 4. White count is 8.4, hemoglobin 12.1, hematocrit 37.5, platelets of 356. Chest x-ray is pending. She has a consult with Dr. Mcgill, the bicycle repairman, here for acute asthma attack. Tom Santana DO MTDD
[2017-08-16] MEDS: Albuterol 0.083% Inhal Sol (2.5 mg/3 mL) UD IH SCH ×2 (23:06→23:37)
--- NOTE | 2017-08-16 23:46 | CARD ---
APPROVED REPORT EKG Measurement Heart [id number] <Conclusion> Normal sinus rhythm Nonspecific ST and T wave abnormality Abnormal ECG
[2017-08-17] MEDS: Albuterol-Ipratrop 3 mg / 0.5 (3 ml) UD IH SCH ×2 (01:22→07:20)
[2017-08-17] MEDS: Albuterol 0.083% Inhal Sol (2.5 mg/3 mL) UD IH SCH ×3 (04:30→06:31)
[2017-08-17] MEDS: Budesonide 0.5 mg/2 ml Inhal Susp UD IH SCH (07:20)
[2017-08-17 07:39] VITALS: RESP 18; TEMP 98
[2017-08-17 08:05] VITALS: O2SAT 98
[2017-08-17 08:09] LABS: HEMOGLOBIN 11.2 g/dL (12.0-16.0); MEAN CELL VOLUME 86.6 fl (80.0-105.0); MEAN CORPUSCULAR HEMOGLOBIN 27.3 pg (25.0-35.0); MEAN CORPUSCULAR HGB CONC 31.5 g/dl (31.0-37.0); RBC 4.1 10^6/uL (3.5-6.1); WHITE BLOOD COUNT 14.2 10^3/ul (4.5-11.0)
[2017-08-17 08:40] LABS: ALB/GLOB RATIO 1.5 (1.1-1.8); ALBUMIN 3.8 g/dL (3.0-4.8); ALT/SGPT 21 U/L (7-56); AST/SGOT 18 U/L (14-36); BLOOD UREA NITROGEN 26 mg/dL (7-21); CALCIUM 9.1 mg/dL (8.4-10.5); GFR AFRICAN-AMERICAN > 60; GFR NON-AFRICAN AMERICAN > 60
[2017-08-17] MEDS: Digoxin 250 mcg (0.25 mg) Tab PO SCH (09:37)
[2017-08-17] MEDS: levoFLOXacin 500 MG TAB PO SCH (09:38)
[2017-08-17 09:42] VITALS: BP 131/78; PULSE 100
--- NOTE | 2017-08-17 10:50 | PN ---
DATE: 08/17/2017 PULMONARY NOTE SUBJECTIVE: The patient appears very comfortable this morning. She is not short of breath at rest. PHYSICAL EXAMINATION: VITAL SIGNS: Temperature is 98, pulse 93, respirations 18, blood pressure 104/56. Oxygen saturation on room air is now 98%. HEENT: Normocephalic, atraumatic. No JVD. CARDIOVASCULAR: Positive S1, S2. No S3 gallop. LUNGS: Clear bilaterally. EXTREMITIES: No clubbing, cyanosis or edema. Calves are nontender to palpation. GI: Abdomen is soft, nontender and nondistended. Bowel sounds are positive. SKIN: No acute rash. NEUROLOGIC: Limited at the present time. IMPRESSION: 1. Acute/recurrent bronchitis. 2. Advanced chronic obstructive pulmonary disease. 3. Asthma. 4. Coronary artery disease. 5. Pulmonary nodule/scar - left upper lobe. PLAN: The patient appears very comfortable this morning. She is not short of breath at rest. She does state to feeling much, much better overall. On physical exam, her lungs are now clear. In addition, the oxygen saturation on room air is now 98%. I will continue with the current nebulizer treatments and change to oral steroids this morning. The patient remains on oral antibiotic therapy. There are no temperatures noted. There is a mild leukocytosis - probably due to the steroids. Initially, there was no leukocytosis. The clinical status of the patient is significantly improved. I will discuss the above with Dr. Santana. Alex Mcgill MD MTDD
--- NOTE | 2017-08-17 13:45 | DS ---
HISTORY OF PRESENT ILLNESS: She is doing much better today. We will change her to p.o. We will discharge her. She understands that. She will go back to work on Friday. Gave prescriptions for albuterol, Lanoxin, Lasix, Levaquin, Lipitor, Lopressor, Plavix, prednisone at 40 for 2 days, 30 for 2 days, 20 for 2 days, 10 for 2 days and stop Pulmicort, Ultram and Zestril. She will be able to go back to work on Friday. PHYSICAL EXAMINATION: VITAL SIGNS: She had a 98 temperature, 93 pulse, 104/56 blood pressure, 18 respiratory rate, 90% O2 sat on room air. HEAD: Atraumatic, normocephalic. HEART: Regular rate. LUNGS: Decreased breath sounds, but clear. No wheezing or rhonchi. No rales. ABDOMEN: Soft. EXTREMITIES: No edema. LABORATORY DATA: She had a 40.2 white count from the steroids, 11.2 hemoglobin, 35.5 hematocrit with a 337 platelets. She has 142 sodium, potassium 4.5, BUN 26, creatinine 0.8, , sugar is 139, calcium is 9.1, total bilirubin is less than 0.1, AST is 18, ALT is 21, alk phos 87. Troponin I is less than 0.01, total protein 6.5. ASSESSMENT AND PLAN: She was here for acute recurrent bronchitis, advanced chronic obstructive pulmonary disease, asthma, coronary artery disease and pulmonary scarring. She will be changed to an observation level of care and she will be discharged today. Tom Santana DO MTDD
== END 2017-08-17 12:18 | disposition home or self-care (01) ==
LOC: ED 23:04 → INTOOBSV 08-16 01:40 → ERH 08-16 01:40 → 5RSO 08-16 02:56
PROVIDERS: ADMIT Family Medicine; ATTEND Family Medicine
DX: J44.0 Chronic obstructive pulmonary disease with (acute) lower respiratory infection (principal); J20.9 Acute bronchitis, unspecified; I25.10 Atherosclerotic heart disease of native coronary artery without angina pectoris; R91.1 Solitary pulmonary nodule; I50.9 Heart failure, unspecified; I11.0 Hypertensive heart disease with heart failure; I25.2 Old myocardial infarction; Z91.19 Patient's noncompliance with other medical treatment and regimen; Z87.891 Personal history of nicotine dependence; Z87.440 Personal history of urinary (tract) infections; Z98.51 Tubal ligation status; Z95.5 Presence of coronary angioplasty implant and graft
CPT/HCPCS: 36415; 71045; 80053; 82550; 83615; 83880; 84484; 85025; 85027; 93005; 94640; 94760; 96374; 99282; G0378; J2920; J2930

== ENCOUNTER 2018-02-15 21:14 | Inpatient (IN) | payer MEDICAID, OTHER ==
[2018-02-15 21:19] VITALS: BMI 30.2
--- NOTE | 2018-02-15 21:25 | ED PDOC ---
Arrival/HPI - General Chief Complaint: Shortness Of Breath Time Seen by Provider: 02/15/18 21:17 Historian: Patient - History of Present Illness Narrative History of Present Illness (Text): 02/15/18 21:20 Lelo Denton is a 61 year old female, whose past medical history includes CAD s/p stent placement, [place], hypertension, CHF, COPD, asthma, emphysema, and pneumonia, who presents to the Emergency department complaining of shortness of breath. Patient states she has been experiencing shortness of breath with associated productive cough with clear sputum for the past couple of days. Patient states she had nebulizer treatments and used her inhaler at home, with no significant relief. Patient denies any fever, chills, nausea, vomiting, diarrhea, urinary symptoms, back pain, neck pain, headache, dizziness, or any other complaints. PMD: Dr. Santana Symptom Onset: Gradual Symptom Course: Unchanged Activities at Onset: Light Context: Home Past Medical History - Provider Review Nursing Documentation Reviewed: Yes - Past History Past History: No Previous - Infectious Disease Hx of Infectious Diseases: None - Tetanus Immunization Tetanus Immunization: Unknown - Past Medical History Past Medical History: No Previous - Cardiac Hx Cardiac Disorders: Yes (mi 2014) Hx Pacemaker: No Hx Peripheral Edema: Yes (ble +1) Other/Comment: stent placement - Pulmonary Hx Respiratory Disorders: Yes Hx Asthma: Yes Hx Bronchitis: Yes Hx Chronic Obstructive Pulmonary Disease (COPD): Yes Hx Emphysema: Yes Hx Pneumonia: Yes Other/Comment: has home nebulizer and home o2 - Neurological Hx Neurological Disorder: No Hx Alzheimer's Disease: No HX Cerebrovascular Accident: No Hx Dementia: No Hx Dizziness: No Hx Meningitis: No Hx Migraine: No Hx Parkinson's Disease: No Hx Seizures: No Hx Transient Ischemic Attacks (TIA): No - HEENT Hx HEENT Disorder: Yes (reading glasses) - Renal Hx Renal Disorder: No - Endocrine/Metabolic Hx Endocrine Disorders: No - Hematological/Oncological Hx Blood Disorders: No Hx AIDS: No Hx Anemia: No Hx Cancer: No Hx Chemotherapy: No Hx Cirrhosis: No Hx Hepatitis A: No Hx Hepatitis B: No Hx Hepatitis C: No Hx Metastasis: No Hx Shingles: No Hx Unexplained Bleeding: No - Integumentary Hx Dermatological Disorder: No - Musculoskeletal/Rheumatological Hx Falls: No - Gastrointestinal Hx Gastrointestinal Disorders: No - Genitourinary/Gynecological Hx Genitourinary Disorders: Yes (TUBAL LIGATION) Hx Urinary Tract Infection: Yes - Psychiatric Hx Emotional Abuse: No Hx Physical Abuse: No Hx Substance Use: No - Past Surgical History Past Surgical History: Non-Contributing - Surgical History Hx Cardiac Catheterization: Yes (stent) Hx Coronary Stent: Yes (10/19/2014) Other/Comment: HX OF TUBAL LIGATION 1986 - Anesthesia Hx Anesthesia: Yes Hx Anesthesia Reactions: No Hx Malignant Hyperthermia: No - Suicidal Assessment Feels Threatened In Home Enviroment: No Family/Social History - Physician Review Nursing Documentation Reviewed: Yes Family/Social History: Unknown Family HX Smoking Status: Former Smoker Hx Alcohol Use: No Hx Substance Use: No Hx Substance Use Treatment: No Allergies/Home Meds Allergies/Adverse Reactions: Allergies No Known Allergies Allergy (Verified 08/15/17 23:15) Home Medications: Home Meds Medication Instructions Recorded Confirmed Albuterol/Ipratropium [Duoneb 3 3 ml IH [id number] PRN 08/12/16 02/15/18 mg/0.5 mg (3 ml) UD] Fluticasone/Salmeterol [Advair 1 puff IH PRN PRN 12/17/16 02/15/18 250-50 Diskus] Review of Systems - Physician Review All systems were reviewed & negative as marked: Yes - Review of Systems Constitutional: Normal. absent: Fevers Eyes: Normal ENT: Normal Respiratory: SOB, Cough, Sputum Cardiovascular: Normal. absent: Chest Pain Gastrointestinal: Normal. absent: Abdominal Pain, Diarrhea, Nausea, Vomiting Genitourinary Female: Normal. absent: Dysuria, Frequency, Hematuria, Urine Output Changes Musculoskeletal: Normal. absent: Back Pain, Neck Pain Skin: Normal. absent: Rash Neurological: Normal. absent: Headache, Dizziness Endocrine: Normal Hemo/Lymphatic: Normal Psychiatric: Normal Physical Exam Vital Signs Reviewed: Yes Temperature: Afebrile Blood Pressure: Normal Pulse: Regular Respiratory Rate: Normal Appearance: Positive for: Well-Appearing, Non-Toxic, Comfortable Pain Distress: None Mental Status: Positive for: Alert and Oriented X 3 - Systems Exam Head: Present: Atraumatic, Normocephalic Pupils: Present: PERRL Extroacular Muscles: Present: EOMI Conjunctiva: Present: Normal Mouth: Present: Moist Mucous Membranes Neck: Present: Normal Range of Motion. No: Meningeal Signs, MIDLINE TENDERNESS, Paraspinal Tenderness Respiratory/Chest: Present: Wheezes, Rhonchi. No: Respiratory Distress, Acce ssory Muscle Use Cardiovascular: Present: Regular Rate and Rhythm, Normal S1, S2. No: Murmurs Abdomen: No: Tenderness, Distention, Peritoneal Signs Back: Present: Normal Inspection Upper Extremity: Present: Normal Inspection. No: Cyanosis, Edema Lower Extremity: Present: Normal Inspection. No: Edema Neurological: Present: GCS=15, CN II-XII Intact, Speech Normal Skin: Present: Warm, Dry, Normal Color. No: Rashes Psychiatric: Present: Alert, Oriented x 3, Normal Insight, Normal Concentration Medical Decision Making ED Course and Treatment: 02/15/18 21:20 Impression: 62 year old female complaining of shortness of breath and productive cough with clear sputum for the past couple of days. Plan: -- EKG -- Chest X-ray -- Labs, cardiac enzymes, BNP -- Duoneb -- Solu-medrol -- Reassess and disposition Prior Visits: Notes and results from previous visits were reviewed. On 08/15/2017, patient was seen in the Emergency department for worsening shortness of breath. Pt was admitted to the hospital for further evaluation. Progress Notes: Reviewed EKG, NSR at [address]-segment elevations or depressions, no T-wave inversions, normal intervals. 02/15/18 21:58 Chest X-ray reviewed, shows no acute processes. 02/15/18 22:[address] Santana, who is aware and agrees with plan. Accepts pt in to his service. Pt will go to Telemetry observation for COPD exacerbation. - Lab Interpretations I have reviewed the lab results: Yes - RAD Interpretation Project Management: ED Physician - EKG Interpretation Interpreted by ED Physician: Yes Type: 12 lead EKG - Scribe Statement The provider has reviewed the documentation as recorded by the Arlene Cortez Provider Scribe Attestation: All medical record entries made by the Scribe were at my direction and personally dictated by me. I have reviewed the chart and agree that the record accurately reflects my personal performance of the history, physical exam, medical decision making, and the department course for this patient. I have also personally directed, reviewed, and agree with the discharge instructions and disposition. Disposition/Present on Arrival - Present on Arrival Any Indicators Present on Arrival: No History of DVT/PE: No History of Uncontrolled Diabetes: No Urinary Catheter: No History of Decub. Ulcer: No History Surgical Site Infection Following: None - Disposition Have Diagnosis and Disposition been Completed?: Yes Diagnosis: COPD with exacerbation Disposition: HOSPITALIZED Disposition Time: 22:49 Patient Plan: Observation Condition: STABLE
[2018-02-15] MEDS ORDERED: Albuterol-Ipratrop 3 mg / 0.5 (3 ml) UD IH STA ×2 (21:27→21:59)
[2018-02-15 21:46] LABS: HEMOGLOBIN 12.3 g/dL (12.0-16.0); MEAN CELL VOLUME 85.7 fl (80.0-105.0); MEAN CORPUSCULAR HEMOGLOBIN 27.2 pg (25.0-35.0); MEAN CORPUSCULAR HGB CONC 31.7 g/dl (31.0-37.0); MEAN PLATELET VOLUME 9.7 fl (7.0-11.0); RBC 4.53 10^6/uL (3.5-6.1); RED CELL DISTRIBUTION WIDTH 16.6 % (11.5-14.5); WHITE BLOOD COUNT 9.6 10^3/ul (4.5-11.0)
[2018-02-15 21:52] LABS: INR 0.91; PARTIAL THROMBOPLASTIN TIME 30.9 Seconds (25.1-36.5); PROTHROMBIN TIME 10.3 SECONDS (9.4-12.5)
[2018-02-15 21:57] LABS: ALB/GLOB RATIO 1.4 (1.1-1.8); ALBUMIN 4.2 g/dL (3.0-4.8); ALT/SGPT 27 U/L (7-56); AST/SGOT 21 U/L (14-36); BLOOD UREA NITROGEN 20 mg/dL (7-21); CALCIUM 8.9 mg/dL (8.4-10.5); GFR NON-AFRICAN AMERICAN > 60
[2018-02-15 22:08] LABS: B-TYPE NATRIURETIC PEPTIDE 262 pg/mL (0-450); TROPONIN I < 0.01 ng/mL
[2018-02-15 22:32] LABS: CK-MB 2.2 ng/mL (0.0-3.6)
[2018-02-15] MEDS ORDERED: Albuterol-Ipratrop 3 mg / 0.5 (3 ml) UD IH PRN (22:41)
[2018-02-16] MEDS: guaiFENesin-Codeine 100-10mg/5ml Syrup (5 ml) UD PO PRN ×2 (01:29→17:19)
[2018-02-16] MEDS ORDERED: Fluticasone-Salmeterol 250-50mcg Diskus IH PRN (05:26)
[2018-02-16] MEDS ORDERED: Budesonide 0.5 mg/2 ml Inhal Susp UD IH PRN (05:47)
[2018-02-16 07:15] LABS: ALB/GLOB RATIO 1.5 (1.1-1.8); ALT/SGPT 21 U/L (7-56); AST/SGOT 17 U/L (14-36); BLOOD UREA NITROGEN 20 mg/dL (7-21); GFR NON-AFRICAN AMERICAN > 60
[2018-02-16] MEDS: Albuterol-Ipratrop 3 mg / 0.5 (3 ml) UD IH SCH ×2 (07:46→20:34)
[2018-02-16] MEDS: Arformoterol 15 mcg/2 ml Inh Sol IH PRN ×2 (07:46→20:34)
[2018-02-16] MEDS: Budesonide 0.5 mg/2 ml Inhal Susp UD IH SCH ×2 (07:46→20:35)
[2018-02-16] MEDS: MethylPREDNISolone 40 mg Vial IVP SCH ×2 (10:29→21:07)
[2018-02-16] MEDS: levoFLOXacin 500 MG TAB PO SCH (10:29)
--- NOTE | 2018-02-16 11:13 | RAD ---
Date of service: 02/15/2018 HISTORY: Shortness of breath. COMPARISON: 08/16/2017 FINDINGS: LUNGS: No active pulmonary disease. PLEURA: No significant pleural effusion identified, no pneumothorax apparent. CARDIOVASCULAR: No atherosclerotic calcification present No radiographic findings to suggest acute or significant cardiovascular disease. OSSEOUS STRUCTURES: No significant abnormalities. VISUALIZED UPPER ABDOMEN: Normal. OTHER FINDINGS: None. IMPRESSION: No active disease. No significant interval change compared to the prior examination(s).
[2018-02-16] MEDS: Digoxin 250 mcg (0.25 mg) Tab PO SCH (13:16)
--- NOTE | 2018-02-16 16:35 | CARD ---
APPROVED REPORT Date of service: 02/15/2018 EKG Measurement Heart [id number] <Conclusion> Normal sinus rhythm Normal ECG
--- NOTE | 2018-02-16 17:53 | CON ---
DATE: 02/16/2018 PULMONARY CONSULTATION REASON FOR CONSULTATION: Chronic obstructive pulmonary disease. REFERRING PHYSICIAN: Dr. Tom Santana. HISTORY OF PRESENT ILLNESS: The patient is a chronically ill 62-year-old female, with past medical history significant for advanced chronic obstructive pulmonary disease, asthma, recurrent bronchitis, coronary artery disease, status post multiple cardiac stents, who presents to [facility] with a 3-day history of worsening shortness of breath at rest, dyspnea on exertion, cough, and clear sputum production. There is no history of chest pain, coughing up of blood, or chest pain - worse with deep respirations. There is no history of temperatures, chills or infectious exposure. There is no history of night sweats, weight loss, or appetite change prior to the above events. No history of leg or calf pains. No history of syncope or diaphoresis. No history of no history of recent travel or trauma. REVIEW OF SYSTEMS: No history of nausea, vomiting or diarrhea. No acute urinary symptoms. No new neurologic or musculoskeletal complaints. Rest of the review of systems is negative. ALLERGIES: NO KNOWN ALLERGIES. SOCIAL HISTORY: Positive for extensive tobacco usage. No alcohol. FAMILY HISTORY: No inheritable diseases. HOME MEDICATIONS: Include Lopressor, Zestril, Toradol, Lasix, Advair, Lanoxin, Plavix, cefuroxime, Pulmicort, Lipitor, DuoNebs. PHYSICAL EXAMINATION: GENERAL: The patient appears comfortable this morning. She is not short of breath at rest. VITAL SIGNS: Temperature is 97.9, pulse is 88, respiratory rate 18/20, blood pressure 148/91. Oxygen saturation on nasal cannula is 98%. HEENT: Normocephalic, atraumatic. No JVD. CARDIOVASCULAR: Positive S1, S2. No S3 gallop. LUNGS: Decreased breath sounds at the bases. Mild bilateral rhonchi. No wheezing. EXTREMITIES: No clubbing, cyanosis or edema. Calves are nontender to palpation. Gastrointestinal: Abdomen is soft, nontender and nondistended. Bowel sounds are positive. SKIN: No acute rash. NEUROLOGIC: Exam limited at the present time. PERTINENT LABORATORY DATA: Chest x-ray was done late last night reviewed. I do not appreciate any new or significant changes. Official results are pending. CBC: White count 9.6K, hemoglobin 12.3, hematocrit is 38.8, platelets are 344,000. Complete metabolic profile: Chloride 108, creatinine kinase 401. Rest of the metabolic profile is within normal limits. IMPRESSION: 1. Acute/recurrent bronchitis. 2. Advanced chronic obstructive pulmonary disease. 3. Asthma. 4. Coronary artery disease. PLAN: The patient presents to [facility] with a 3-day history of worsening pulmonary symptoms. I did review the chest x-ray as above. I do not appreciate any new or significant changes - compared to the previous film. Official results are pending. I have also reviewed the laboratory data. There is no leukocytosis noted. In addition, there is no temperatures by history. On physical exam, there is mild bronchospasm present. However, there is no significant alveolar-arterial gradient. I will continue the current nebulizer treatments and low-dose intravenous steroids for now. Due to her age and chronic lung condition, I will also start oral antibiotic therapy this morning. Again, there is no history of temperatures. There is no leukocytosis. The patient does state to feeling better this morning, and is clinically improved. Additional pulmonary intervention will be based on the clinical status of the patient. I will discuss the above with Dr. Santana this morning. Thank you very much for this pulmonary consultation. Alex Mcgill MD DANTE
[2018-02-16] MEDS ORDERED: Mometasone 220 mcg/puff-14 puff Inh IH SCH (18:00)
--- NOTE | 2018-02-16 19:12 | HP ---
HISTORY OF PRESENT ILLNESS: I saw Lelo in bed this morning. She is still short of breath. She is a 62-year-old female who I know very well from multiple office visits and hospital stays, who comes in to the emergency room complaining of shortness of breath, wheezing, coughing, lots of phlegm but clear. She is using her nebulizers at home and her medications at home, which does and she was getting worse, so she comes to the emergency room. PAST MEDICAL HISTORY: She has a past medical history of CAD with stents, MIs, hypertension, CHF, COPD, asthma, emphysema, pneumonia. In the past, she had peripheral edema. She had bronchitis in the past. She has home oxygen at home and nebulizer which did not help. She wears glasses. PAST SURGICAL HISTORY: She had tubal ligation. She had multiple urinary tract infections. Coronary stents. FAMILY HISTORY: Unknown. SOCIAL HISTORY: Former smoker. No alcohol. No drugs. ALLERGIES: NO KNOWN DRUG ALLERGIES. MEDICATIONS: She is on DuoNebs and Advair, Brovana, Lanoxin, Lasix, Lipitor, Lopressor, Plavix, Pulmicort, Ultram, Zestril. REVIEW OF SYSTEMS: No acute vision or hearing changes. She is coughing with shortness of breath and sputum. No chest pain. No neck pain. No abdominal pain. No nausea, vomiting, constipation, or diarrhea. No problems urinating. No back pain. No neck pain. No skin rashes or ulcers. No headaches or dizziness. No anxiety. She is very short of breath, sitting up and wheezing. She is at this time toxic, sitting up in bed, this is after Solu-Medrol. PHYSICAL EXAMINATION GENERAL: Alert and oriented x3. HEENT: Head is atraumatic and normocephalic. Extraocular muscles intact. Pupils equal and reactive to light. Throat is moist. NECK: Supple. No JVD. HEART: Regular rate. Normal S1 and S2. LUNGS: Wheezes, rhonchi, changes with cough. Lungs are very tight, cannot take a deep breath in, on oxygen. ABDOMEN: Soft and nontender. Positive bowel sounds. No guarding, no rebound, no CVA tenderness. EXTREMITIES: No edema. NEUROLOGIC: GCS is 15. Cranial nerves II through XII grossly intact. Normal speech. Alert and oriented x3. SKIN: Warm and dry. No apparent rashes or ulcers. LYMPHATICS: Thyroid midline. No palpable or appreciable lymphadenopathy. LABORATORY DATA: She had tests that were done. She has 139 sodium, potassium 4.7, BUN 20, creatinine 0.8, GFR is greater than 60, sugar is 161. Calcium is 9, total bili is 0.3, AST is 17, ALT is 21, alk phos is 78. Troponin I is less than 0.01. BNP is 262. Total protein 6.7, albumin is 4.2, globulin 2.7. INR is 0.91. White count is 9.6, hemoglobin 12.3, hematocrit 38.8, platelets of 344. Chest x-ray is pending. ASSESSMENT AND PLAN: She is going to have a consult with Pulmonary. I discussed this with Pulmonary. They are going to change it to an inpatient. She will attempt at least 2 more overnights of treatment at this time. She is here for acute exacerbation of asthma and chronic obstructive pulmonary disease. Tom Santana DO MTDSurjit
[2018-02-17] MEDS: Albuterol-Ipratrop 3 mg / 0.5 (3 ml) UD IH SCH ×4 (01:11→19:55)
[2018-02-17] MEDS: Budesonide 0.5 mg/2 ml Inhal Susp UD IH SCH ×2 (07:12→19:56)
[2018-02-17] MEDS: Arformoterol 15 mcg/2 ml Inh Sol IH PRN ×2 (07:12→19:56)
[2018-02-17 07:15] LABS: HEMOGLOBIN 11.1 g/dL (12.0-16.0); MEAN CELL VOLUME 84.9 fl (80.0-105.0); MEAN CORPUSCULAR HEMOGLOBIN 26.6 pg (25.0-35.0); MEAN CORPUSCULAR HGB CONC 31.3 g/dl (31.0-37.0); MEAN PLATELET VOLUME 9.3 fl (7.0-11.0); RBC 4.18 10^6/uL (3.5-6.1); RED CELL DISTRIBUTION WIDTH 16.7 % (11.5-14.5); WHITE BLOOD COUNT 17.7 10^3/ul (4.5-11.0)
[2018-02-17 07:27] LABS: ALB/GLOB RATIO 1.4 (1.1-1.8); ALBUMIN 3.9 g/dL (3.0-4.8); ALT/SGPT 16 U/L (7-56); AST/SGOT 17 U/L (14-36); BLOOD UREA NITROGEN 32 mg/dL (7-21); GFR NON-AFRICAN AMERICAN > 60
--- NOTE | 2018-02-17 07:57 | PN ---
DATE: 02/17/2018 PULMONARY NOTE SUBJECTIVE: The patient appears comfortable this morning. She is not short of breath at rest. PHYSICAL EXAMINATION: VITAL SIGNS: Temperature is 98.2, pulse 88, respirations 18, blood pressure 125/67. Oxygen saturation on nasal cannula is 94%-97%. HEENT: Normocephalic, atraumatic. No JVD. CARDIOVASCULAR: Positive S1, S2. No S3 gallop. LUNGS: Improved breath sounds at the bases. Much less rhonchi. No wheezing. EXTREMITIES: No clubbing, cyanosis, or edema. Calves are nontender to palpation. GASTROINTESTINAL: Abdomen is soft, nontender, and nondistended. Bowel sounds are positive. SKIN: No acute rash. NEUROLOGIC: Limited at the present time. IMPRESSION: 1. Acute/recurrent bronchitis. 2. Advanced chronic obstructive pulmonary disease. 3. Asthma. 4. Coronary artery disease. PLAN: The patient appears comfortable this morning. She is not short of breath at rest. She does state to feeling much,much better overall. On physical exam, her bronchospasm is certainly less. In addition, there is no significant alveolar-arterial gradient. I will continue with the current nebulizer treatments and decrease the intravenous steroids this morning. The patient also remains on antibiotic therapy. There are no temperatures noted. There is no leukocytosis. Clinical status of the patient is certainly improved - compared to the initial presentation. However, her future status/prognosis does remain somewhat guarded - as she continues to have advanced lung disease. I will discuss the above with Dr. Santana. Alex Mcgill MD MTDSurjit
[2018-02-17] MEDS: levoFLOXacin 500 MG TAB PO SCH (09:52)
[2018-02-17] MEDS: MethylPREDNISolone 40 mg Vial IVP SCH ×2 (09:54→21:26)
[2018-02-17] MEDS: Digoxin 250 mcg (0.25 mg) Tab PO SCH (13:25)
[2018-02-17 13:26] VITALS: PULSE 64
--- NOTE | 2018-02-17 15:07 | PN ---
DATE: 02/17/2018 SUBJECTIVE: I saw Lelo resting in bed. She is feeling a little bit better than yesterday. She is starting to breathe a bit better, less of a wheeze. She is able to eat. Not much short of breath. PHYSICAL EXAMINATION: VITAL SIGNS: She has 97.6 temp, 83 pulse, 118/69 blood pressure, 20 respiratory rate, 95% O2 sat on oxygen 2 L. HEENT: Head is atraumatic, normocephalic. HEART: Regular rate. LUNGS: Clear to auscultation with decreased breath sounds and no wheezes. ABDOMEN: Soft, nontender. Positive bowel sounds. EXTREMITIES: No edema. MEDICATIONS: She is on Brovana, DuoNebs, Lanoxin, Lasix, Levaquin, Lipitor, Lopressor, Plavix, Pulmicort, Robitussin, the Solu-Medrol is down to 30 IV every 12, Ultram and Zestril. She has a 137 sodium, potassium 4.6, BUN 32, creatinine 0.9, GFR is greater than 60, sugar is 151, calcium is 9, total bili is 0.1, AST is 17, ALT is 16, alk phos 69. Troponin I is less than 0.01. BNP is 262. Total protein is 6.6. White count 17.7 from the steroids, 11.1 hemoglobin, 35.5 hematocrit with 332 platelets. ASSESSMENT AND PLAN: She is being seen by Pulmonary. We decreased the Solu-Medrol. We are hoping to discharge her tomorrow if things go well. I will continue aggressive treatment and care on Lelo Denton who came in with acute exacerbation of chronic obstructive pulmonary disease, asthma. Tom Santana DO MTDD
[2018-02-17] MEDS: guaiFENesin-Codeine 100-10mg/5ml Syrup (5 ml) UD PO PRN (21:35)
[2018-02-17 22:11] VITALS: RESP 18; TEMP 98; O2SAT 97
[2018-02-18] MEDS: Albuterol-Ipratrop 3 mg / 0.5 (3 ml) UD IH SCH ×2 (01:45→07:31)
--- NOTE | 2018-02-18 07:26 | PN ---
DATE: 02/18/2018 PULMONARY NOTE SUBJECTIVE: The patient appears very comfortable this morning. She is not short of breath at rest. PHYSICAL EXAMINATION: VITAL SIGNS: Last temperature recorded is 98, pulse this morning 88, respiratory rate 18, blood pressure 137/90. Oxygen saturation on nasal cannula is 97%. HEENT: Normocephalic, atraumatic. No JVD. CARDIOVASCULAR: Positive S1, S2. No S3 gallop. LUNGS: Clear bilaterally this morning. EXTREMITIES: No clubbing, cyanosis or edema. Calves are nontender to palpation. GI: Abdomen is soft, nontender and nondistended. Bowel sounds are positive. SKIN: No acute rash. NEUROLOGIC: Limited at the present time. IMPRESSION: 1. Acute/recurrent bronchitis. 2. Advanced chronic obstructive pulmonary disease. 3. Asthma. 4. Coronary artery disease. PLAN: The patient appears very comfortable this morning. She is not short of breath at rest. She does state to feeling much, much better overall. On physical exam, her lungs are now clear. In addition, there is no significant alveolar-arterial gradient. I will continue with the current nebulizer treatments and change to oral steroids this morning. The patient remains on oral antibiotic therapy. There are no temperatures noted. There was a leukocytosis on yesterday's labs - most likely secondary to the steroids. Her initial white count was normal. Repeat AM labs-pending. Clinical status of the patient is significantly improved overall. However, again, the future status/prognosis for this patient does remain guarded - as she continues to have advanced lung disease. I will discuss the above with Dr. Santana later this morning. Alex Mcgill MD DANTE
[2018-02-18 07:31] LABS: HEMOGLOBIN 11.6 g/dL (12.0-16.0); MEAN CELL VOLUME 85.6 fl (80.0-105.0); MEAN CORPUSCULAR HEMOGLOBIN 26.5 pg (25.0-35.0); MEAN CORPUSCULAR HGB CONC 30.9 g/dl (31.0-37.0); MEAN PLATELET VOLUME 9.4 fl (7.0-11.0); RBC 4.38 10^6/uL (3.5-6.1); RED CELL DISTRIBUTION WIDTH 16.9 % (11.5-14.5); WHITE BLOOD COUNT 16.3 10^3/ul (4.5-11.0)
[2018-02-18] MEDS: Arformoterol 15 mcg/2 ml Inh Sol IH PRN (07:31)
[2018-02-18] MEDS: Budesonide 0.5 mg/2 ml Inhal Susp UD IH SCH (07:31)
[2018-02-18 07:39] LABS: ALB/GLOB RATIO 1.4 (1.1-1.8); ALBUMIN 4.1 g/dL (3.0-4.8); ALT/SGPT 16 U/L (7-56); AST/SGOT 18 U/L (14-36); BLOOD UREA NITROGEN 26 mg/dL (7-21); GFR NON-AFRICAN AMERICAN > 60
[2018-02-18] MEDS ORDERED: Influenza Vaccine 60 mcg/0.5 mL SYR (4YR UP) IM ONE (10:19)
[2018-02-18] MEDS: levoFLOXacin 500 MG TAB PO SCH (11:07)
[2018-02-18 11:46] VITALS: BP 110/65; PULSE 73
--- NOTE | 2018-02-18 18:09 | DS ---
HISTORY OF PRESENT ILLNESS: She is resting up, sitting up in bed, eating her breakfast. She is breathing better. Discussed with general accounting manager, , and she will be discharge today. She is going to go home on her Brovana, Duonebs, Lenoxin, Lasix, Levaquin 500 daily for five more days, Lipitor, Lopressor, Plavix, Pulmicort, Ultram, Zestril and prednisone 40 for three days, 30 for three days, 20 for three days, 10 for three days and then stop. She will follow up in the office in a week. PHYSICAL EXAMINATION: VITAL SIGNS: She has 98 temp, 95 pulse, 137/90 blood pressure, 18 respiratory rate and 97% of O2 saturation. HEENT: Head is atraumatic and normocephalic. HEART: Regular rate. LUNGS: Decreased breath sounds, but clear. No wheezes, rhonchi, or rales. ABDOMEN: Soft, obese and nontender. EXTREMITIES: No edema. LABORATORY DATA: She has a 16.3 white count, 11.6 hemoglobin and 258 platelets. She has 139 sodium, potassium 4.6, BUN 26, creatinine 0.9, GFR is greater than 60, sugar is 140, calcium 9, total bili is 0.28, AST is 18, ALT, alk phos 67 and total protein is 7. ASSESSMENT AND PLAN: She will be following up with me in a week. I will write prescriptions for her. She had acute recurrent bronchitis, advanced chronic obstructive pulmonary disease, asthma, coronary artery disease. She is finally feeling better and the lungs broke and are now clear and she can move more air. Tom Santana DO DANTE
--- NOTE | 2018-02-20 07:19 | PQF ---
PROVIDER RESPONSE TEXT: As per pulm REVIEWER QUERY TEXT: Asthma Specificity and Type Asthma is documented in the Medical Record. Please specify the type and severity of asthma and indic ate if this is associated with exacerbation or status asthmaticus. Such as: -- Mild intermittent -- Mild persistent -- Moderate persistent -- Severe persistent -- Exercise induced bronchospasm -- Cough variant asthma -- Other, please specify The patient's Clinical Indicators include: Please see below. Thank you. Query created by: Gail Thompson on 02/19/2018 2:14 PM Electronically signed by: Tom Santana DO 02/20/2018 7:16 AM
--- NOTE | 2018-02-20 07:19 | PQF ---
PROVIDER RESPONSE TEXT: As per pulm REVIEWER QUERY TEXT: Asthma Specificity and Type Asthma is documented in the Medical Record. Please specify the type and severity of asthma and indic ate if this is associated with exacerbation or status asthmaticus. Such as: -- Mild intermittent -- Mild persistent -- Moderate persistent -- Severe persistent -- Exercise induced bronchospasm -- Cough variant asthma -- Other, please specify The patient's Clinical Indicators include: Please see below. Thank you. Query created by: Gail Thompson on 02/19/2018 2:21 PM Electronically signed by: Tom Santana DO 02/20/2018 7:16 AM
--- NOTE | 2018-02-27 08:33 | PQF ---
PROVIDER RESPONSE TEXT: Mild persistent asthma REVIEWER QUERY TEXT: Asthma Specificity and Type Asthma is documented in the Medical Record. Please specify the type and severity of asthma and indic ate if this is associated with exacerbation or status asthmaticus. Such as: -- Mild intermittent -- Mild persistent -- Moderate persistent -- Severe persistent -- Exercise induced bronchospasm -- Cough variant asthma -- Other, please specify The patient's Clinical Indicators include: Please see below, per attending physician. Thank you. Query created by: Gail Thompson on 02/20/2018 8:55 AM Electronically signed by: Alex Mcgill ST 02/27/2018 8:31 AM
== END 2018-02-18 12:22 | disposition home or self-care (01) | DRG 88 ==
LOC: ED 21:14 → ERH 22:39 → 2RSO 23:42 → OBSVTOIN 02-16 08:14 → 5RSO 02-16 12:47
PROVIDERS: ADMIT Family Medicine; ATTEND Family Medicine
DX: J44.1 Chronic obstructive pulmonary disease with (acute) exacerbation (principal); J18.9 Pneumonia, unspecified organism; I11.0 Hypertensive heart disease with heart failure; I50.9 Heart failure, unspecified; J45.31 Mild persistent asthma with (acute) exacerbation; J44.0 Chronic obstructive pulmonary disease with (acute) lower respiratory infection; Z87.01 Personal history of pneumonia (recurrent); I25.10 Atherosclerotic heart disease of native coronary artery without angina pectoris; I25.2 Old myocardial infarction; Z87.440 Personal history of urinary (tract) infections; Z87.891 Personal history of nicotine dependence; Z95.5 Presence of coronary angioplasty implant and graft; Z98.51 Tubal ligation status; Z99.81 Dependence on supplemental oxygen; Z23 Encounter for immunization

== ENCOUNTER 2018-03-05 22:05 | Observation (INO) | payer MEDICAID ==
[2018-03-05 22:05] VITALS: PULSE 64
[2018-03-05 22:45] VITALS: BMI 30.2
--- NOTE | 2018-03-05 22:53 | ED PDOC ---
Arrival/HPI - General Chief Complaint: Back Pain Time Seen by Provider: 03/05/18 22:24 Historian: Patient - History of Present Illness Narrative History of Present Illness (Text): 03/05/18 22:50 62 year old female, whose past medical history includes COPD, hypertension, CAD with stents, and CHF, presents to the emergency department with generalized malaise. Patient informs of occasional episodes of sweating and chest pain.Also c/o ? muscle spasms. Patient denies any fever, chills, shortness of breath, back pain, nausea, vomiting, diarrhea, or any other complaints. Time/Duration: Prior to Arrival Symptom Course: Unchanged Past Medical History - Provider Review Nursing Documentation Reviewed: Yes - Past History Past History: No Previous - Infectious Disease Hx of Infectious Diseases: None - Tetanus Immunization Tetanus Immunization: Unknown - Past Medical History Past Medical History: No Previous - Cardiac Hx Cardiac Disorders: Yes Hx Congestive Heart Failure: Yes Hx Hypertension: Yes - Pulmonary Hx Respiratory Disorders: Yes Hx Asthma: Yes Hx Chronic Obstructive Pulmonary Disease (COPD): Yes Hx Emphysema: Yes Hx Pneumonia: Yes - Neurological Hx Neurological Disorder: No Hx Alzheimer's Disease: No HX Cerebrovascular Accident: No Hx Dementia: No Hx Dizziness: No Hx Meningitis: No Hx Migraine: No Hx Parkinson's Disease: No Hx Seizures: No Hx Transient Ischemic Attacks (TIA): No - HEENT Hx HEENT Disorder: Yes (reading glasses) - Renal Hx Renal Disorder: No - Endocrine/Metabolic Hx Endocrine Disorders: No - Hematological/Oncological Hx Blood Disorders: No Hx AIDS: No Hx Anemia: No Hx Cancer: No Hx Chemotherapy: No Hx Cirrhosis: No Hx Hepatitis A: No Hx Hepatitis B: No Hx Hepatitis C: No Hx Metastasis: No Hx Shingles: No Hx Unexplained Bleeding: No - Integumentary Hx Dermatological Disorder: No - Musculoskeletal/Rheumatological Hx Falls: No - Gastrointestinal Hx Gastrointestinal Disorders: No - Genitourinary/Gynecological Hx Genitourinary Disorders: Yes (TUBAL LIGATION) Hx Urinary Tract Infection: Yes - Psychiatric Hx Emotional Abuse: No Hx Physical Abuse: No Hx Substance Use: No - Past Surgical History Past Surgical History: Non-Contributing - Surgical History Hx Coronary Stent: Yes - Anesthesia Hx Anesthesia: Yes Hx Anesthesia Reactions: No Hx Malignant Hyperthermia: No - Suicidal Assessment Feels Threatened In Home Enviroment: No Family/Social History - Physician Review Nursing Documentation Reviewed: Yes Family/Social History: No Known Family HX Smoking Status: Former Smoker Hx Alcohol Use: No Hx Substance Use: No Hx Substance Use Treatment: No Allergies/Home Meds Allergies/Adverse Reactions: Allergies No Known Allergies Allergy (Verified 08/15/17 23:15) Home Medications: Home Meds Medication Instructions Recorded Confirmed Fluticasone/Salmeterol [Advair 1 puff IH PRN PRN 12/17/16 03/05/18 250-50 Diskus] Review of Systems - Physician Review All systems were reviewed & negative as marked: Yes - Review of Systems Constitutional: Fatigue. absent: Fevers, Night Sweats Respiratory: absent: SOB Cardiovascular: Chest Pain Gastrointestinal: absent: Diarrhea, Nausea, Vomiting Musculoskeletal: absent: Back Pain Endocrine: Diaphoresis Physical Exam Vital Signs Reviewed: Yes Vital Signs Temp Pulse Resp BP Pulse Ox 03/05/18 22:33 97.9 F 113 H 22 134/104 H 96 Temperature: Afebrile Blood Pressure: Hypertensive Pulse: Tachycardic Respiratory Rate: Normal Appearance: Positive for: Well-Appearing, Non-Toxic, Comfortable Pain Distress: None Mental Status: Positive for: Alert and Oriented X 3 - Systems Exam Head: Present: Atraumatic, Normocephalic Pupils: Present: PERRL Extroacular Muscles: Present: EOMI Conjunctiva: Present: Normal Mouth: Present: Moist Mucous Membranes Neck: Present: Normal Range of Motion Respiratory/Chest: Present: Clear to Auscultation, Good Air Exchange. No: Respiratory Distress, Accessory Muscle Use Cardiovascular: Present: Regular Rate and Rhythm, Normal S1, S2. No: Murmurs Abdomen: No: Tenderness, Distention, Peritoneal Signs Back: Present: Normal Inspection Upper Extremity: Present: Normal Inspection. No: Cyanosis, Edema Lower Extremity: Present: Normal Inspection. No: Edema Neurological: Present: GCS=15, CN II-XII Intact, Speech Normal Skin: Present: Warm, Dry, Normal Color. No: Rashes Psychiatric: Present: Alert, Oriented x 3, Normal Insight, Normal Concentration Medical Decision Making ED Course and Treatment: 03/05/18 22:57 Impression: 62 year old female presents with generalized malaise, and occasional episodes of sweating and chest pain. Plan: -- Chest X-ray -- EKG -- Labs -- Reassess and disposition Prior Visits: Notes and results from previous visits were reviewed. Progress Notes: 03/06/18 01:32 Case was discussed with Dr Santana's nurse practitioner, Flakita, who accepted to his service; Dr Piña on consult. - RAD Interpretation Narrative RAD Interpretations (Text): 03/06/18 00:31 CXR- No acute process Surgical Garment Assembler: ED Physician - EKG Interpretation EKG Interpretation (Text): 03/05/18 23:21 Sinus tachycardia @ 104 bpm LVH Nonspecific stt changes - Scribe Statement The provider has reviewed the documentation as recorded by the Ejibdat Luna Provider Scribe Attestation: All medical record entries made by the Scribe were at my direction and personally dictated by me. I have reviewed the chart and agree that the record accurately reflects my personal performance of the history, physical exam, medical decision making, and the department course for this patient. I have also personally directed, reviewed, and agree with the discharge instructions and disposition. Disposition/Present on Arrival - Present on Arrival Any Indicators Present on Arrival: No History of DVT/PE: No History of Uncontrolled Diabetes: No Urinary Catheter: No History of Decub. Ulcer: No History Surgical Site Infection Following: None - Disposition Have Diagnosis and Disposition been Completed?: Yes Diagnosis: Chest pain Disposition: HOSPITALIZED Disposition Time: :31 Patient Plan: Observation Patient Problems: Current Active Problems Problem Status Onset Chest pain Acute Condition: STABLE Discharge Instructions (ExitCare): Chest Pain (ED) Forms: [employer] (Congolese)
[2018-03-05 23:07] LABS: MEAN CELL VOLUME 85.2 fl (80.0-105.0); MEAN CORPUSCULAR HEMOGLOBIN 27.5 pg (25.0-35.0); MEAN CORPUSCULAR HGB CONC 32.3 g/dl (31.0-37.0); MEAN PLATELET VOLUME 9.3 fl (7.0-11.0); RBC 5.12 10^6/uL (3.5-6.1); RED CELL DISTRIBUTION WIDTH 16.3 % (11.5-14.5); WHITE BLOOD COUNT 13.7 10^3/uL (4.5-11.0)
[2018-03-05 23:10] LABS: HEMOGLOBIN 14.1 g/dL (12.0-16.0)
[2018-03-06 00:52] LABS: ALB/GLOB RATIO 1.4 (1.1-1.8); ALBUMIN 4.5 g/dL (3.0-4.8); ALT/SGPT 25 U/L (7-56); AST/SGOT 26 U/L (14-36); BLOOD UREA NITROGEN 18 mg/dL (7-21); CALCIUM 9.5 mg/dL (8.4-10.5); GFR NON-AFRICAN AMERICAN > 60
[2018-03-06 01:00] LABS: B-TYPE NATRIURETIC PEPTIDE 52.5 pg/mL (0-450); TROPONIN I 0.01 ng/mL
[2018-03-06 01:06] LABS: CK-MB 1.8 ng/mL (0.0-3.6)
[2018-03-06 01:31] LABS: INR 0.97; PARTIAL THROMBOPLASTIN TIME 32.7 Seconds (25.1-36.5)
--- NOTE | 2018-03-06 09:44 | HP ---
DATE OF EXAM: 03/06/2018 HISTORY OF PRESENT ILLNESS: I have known Lelo for a while now few years. She is a 62-year-old female who has been coming back and forth to the hospital with COPD and asthma picture. At this time, to the emergency room, she presents with generalized malaise and cramping, sweating and occasional chest pain but mostly muscle spasms. She never had this kind of presentation before. PAST MEDICAL HISTORY: She has a past medical history of COPD, hypertension, CAD with stents, CHF. 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 She has asthma, COPD, emphysema, pneumonia. She wears reading glasses. She had a tubal ligation. She had urinary tract infections. FAMILY HISTORY: No known family history. SOCIAL HISTORY: She was a former smoker and she quit about a year ago, which was great. She smoked for many years. No alcohol. No drugs. ALLERGIES: NO KNOWN DRUG ALLERGIES. MEDICATIONS: She takes Advair, numerous other medications, but nonetheless I will track them down. REVIEW OF SYSTEMS: No acute vision or hearing changes. No sore throat. There was some chest pain. No shortness of breath at this time, which is unusual for her. Breathing is good. No abdominal pain. No nausea, vomiting, constipation or diarrhea. She has got lots of muscle cramps in her arms, feet, hands. She is also sweating a lot. She is uncomfortable, it is difficult for her to walk from the muscle cramping. PHYSICAL EXAMINATION: VITAL SIGNS: She has a 97.9 temperature; 113 pulse; 22 respiratory rate; 134/104 blood pressure which is high, I will make sure she gets her blood pressure pills; 96% O2 sat. GENERAL: She is a little tachycardic, little uncomfortable, in pain, well appearing, nontoxic, alert and oriented x3. HEENT: Head is atraumatic, normocephalic. Extraocular muscles are intact. Pupils are equal and reactive to light and accommodation. Throat is moist. NECK: Supple. HEART: Regular rate. Normal S1 and S2. LUNGS: Clear to auscultation bilaterally. Decreased breath sounds at the baseline, but no wheezes, no rhonchi, no rales and she is breathing well and saturating well. ABDOMEN: Soft, nontender. Positive bowel sounds. EXTREMITIES: No edema. She can move all four but the muscles she tells me cramps, her hands are crampy and to close them. NEUROLOGIC: GCS is 15. Cranial nerves II-XII are grossly intact. Normal speech. SKIN: Warm and dry. No apparent rashes or ulcers. LYMPHS: Thyroid midline. No palpable appreciable lymphadenopathy. Alert and oriented x3. DIAGNOSTICS: There is a chest x-ray that is pending. LABORATORY DATA: Her lab test showed 13.7 white count, I am not sure why the white count is so high. She is not on any prednisone. Hemoglobin is 14.1, hematocrit 43.6, platelets of 301,000. INR is 0.97. She has 134 sodium, potassium 4.2, BUN 18, creatinine 0.9, GFR is greater than 60, sugar is 114. Calcium is 9.5, total bili is 0.4, AST is 26, ALT is 25, alk phos 92. Lactate dehydrogenase is 558 but the total creatine kinase is quite high at 519. Troponin I is less than 0.01. The BNP was 52.5. Total protein is 7.6 and albumin is 4.5. She was taking Lipitor, Lasix, Advair, Lanoxin, Plavix, Lopressor and Zestril. I am going to stop the Lipitor because that can give muscle cramps, although she has been on it for a while and I will stop the Lasix too because she could be a little dehydrated. I will give her a little bit of fluids at 40 mL an hour, an extra liter in 24 hours to see if we could flush this out. She has elevated white count of 13,000 and I have called Infectious Disease to get their opinion. She is on Brovana, she will be on a little bit of Lasix, stop the Lipitor, Lopressor, Plavix, Xanax and Zestril. She will have a consult with Pulmonary, Cardio and Infectious Disease. I am concerned about Lelo with this cramping and she is in observation. I am not sure if it is wrapped up, I will find out or if there is an infection with 13,000 white count. Tom Santana DO [facility] # [id number] [facility]
--- NOTE | 2018-03-06 09:46 | CARD ---
APPROVED REPORT Date of service: 03/05/2018 EKG Measurement Heart [id number] <Conclusion> Sinus tachycardia Left ventricular hypertrophy with repolarization abnormality Abnormal ECG
[2018-03-06] MEDS: Sodium Chloride 0.45% 1,000 ML IV SCH (09:50)
--- NOTE | 2018-03-06 09:58 | CON ---
DATE: 03/06/2018 PULMONARY CONSULTATION REASON FOR PULMONARY CONSULTATION: Chronic obstructive pulmonary disease. REFERRING PHYSICIAN: For this pulmonary consultation is Dr. Santana. HISTORY OF PRESENT ILLNESS: The patient is a chronically ill 62-year-old female, with past medical history significant for advanced chronic obstructive pulmonary disease, asthma, recurrent bronchitis, coronary artery disease status post multiple cardiac stents who presents to [facility] with chest discomfort for the past 1 day. The patient describes the chest discomfort as "a muscular pain." The patient was thus admitted for additional evaluation. The patient is not short of breath at rest. She does have chronic, mild dyspnea on exertion - unchanged. There is no history of cough or sputum production. There is no history of hemoptysis. There is no history of chest discomfort - made worse with deep respirations. There is no history of temperatures, chills or infectious exposure. There is no history of night sweats, weight loss or appetite change prior to the above events. No history of calf pains. No history of syncope or diaphoresis. No history of recent travel or trauma. REVIEW OF SYSTEMS: No history of nausea, vomiting or diarrhea. No acute urinary symptoms. The patient does state to some muscular pains in both her shoulders. No acute neurologic complaints. Rest of review of systems is negative. ALLERGIES: THERE ARE NO KNOWN ALLERGIES. SOCIAL HISTORY: Positive for extensive tobacco usage. No alcohol. FAMILY HISTORY: No inheritable diseases. HOME MEDICATIONS: Include Lipitor, Lasix, Advair, Lanoxin, Plavix, Lopressor, Zestril. PHYSICAL EXAMINATION: GENERAL: The patient appears comfortable this morning. She is not short of breath at rest. VITAL SIGNS: Temperature is 98.4, pulse on the monitor is 96, respiratory rate 18, blood pressure 139/89. Oxygen saturation on nasal cannula is 100%. HEENT: Normocephalic, atraumatic. No JVD. CARDIOVASCULAR: Positive S1, S2. No S3 gallop. LUNGS: Clear bilaterally. EXTREMITIES: No clubbing, cyanosis or edema. Calves are nontender to palpation. GASTROINTESTINAL: Abdomen is soft, nontender and nondistended. Bowel sounds are positive. SKIN: No acute rash. NEUROLOGIC: Limited at the present time. DIAGNOSTICS: Chest x-ray was done and reviewed. There are no acute changes noted. Official results are pending. PERTINENT LABORATORY DATA: CBC: White count 13.7K, hemoglobin 14.1, hematocrit 43.6, platelets of 301,000. Complete metabolic profile: Chloride 95, glucose 114, creatinine kinase 519. Rest of the metabolic profile is within normal limits. IMPRESSION: 1. Chest discomfort--resolving. 2. History of coronary artery disease, status post multiple cardiac stents. 3. Advanced chronic obstructive pulmonary disease. 4. Asthma (moderate, persistent). PLAN: The patient presents to [facility] with a 1-day history of chest discomfort. As above, the chest discomfort is described as a "muscular pain." In addition, the patient also complains of some muscular type pains in both her shoulders. She was thus admitted for additional evaluation. I did review the chest x-ray as above. The chest x-ray shows no acute or significant change - compared to the previous film. On physical exam, the patient's lungs are clear. In addition, the oxygen saturation on nasal cannula is 100%. The patient was started on Brovana. I will add inhaled Pulmicort. The patient is on Advair at home. Cardiology evaluation with Dr. Piña has been ordered. The patient does state to feeling much better this morning, and her chest discomfort has primarily resolved. Additional pulmonary intervention will be based on the clinical status of the patient. I did discuss the above with Dr. Santana. Thank you very much for this pulmonary consultation. Alex Mcgill MD [facility]
[2018-03-06 10:44] LABS: CALCIUM 8.9 mg/dL (8.4-10.5)
--- NOTE | 2018-03-06 11:38 | CP.PCM.CON ---
History of Present Illness - History of Present Illness History of Present Illness: 62 year old female with PMH of end-stage chronic obstructive pulmonary disease, congestive heart failure, arthritis, hypertension came in to [place] complaining of muscle aches and cramping associated with occasional sweats but no chills or fevers. She denies headache or dizziness, no chest pain or palpitations, no nausea or vomiting, no rhinorrhea, no sore throat, no abdominal pain, no diarrhea, no dysuria, no cough. Patient has been taking atorvastatin for a few years now. She denies recent travel outside of [place] in the past 3 months, no animal contacts or insect bites, no known ill contacts. In the ED, the patient is noted to have leukocytosis. Infectious Diseases consult is requested to further evaluate and manage. Review of Systems - Review of Systems All systems: reviewed and no additional remarkable complaints except (as per HPI) Past Patient History - Infectious Disease Hx of Infectious Diseases: None - Tetanus Immunizations Tetanus Immunization: Unknown - Past Medical History & Family History Past Medical History?: Yes - Past Social History Smoking Status: Former Smoker - CARDIAC Hx Cardiac Disorders: Yes Hx Congestive Heart Failure: Yes Hx Hypertension: Yes - PULMONARY Hx Respiratory Disorders: Yes Hx Asthma: Yes Hx Chronic Obstructive Pulmonary Disease (COPD): Yes - NEUROLOGICAL Hx Neurological Disorder: No Hx Alzheimer's Disease: No HX Cerebrovascular Accident: No Hx Dementia: No Hx Dizziness: No Hx Meningitis: No Hx Migraine: No Hx Parkinson's Disease: No Hx Seizures: No Hx Transient Ischemic Attacks (TIA): No - HEENT Hx HEENT Problems: Yes (reading glasses) - RENAL Hx Chronic Kidney Disease: No - ENDOCRINE/METABOLIC Hx Endocrine Disorders: No - HEMATOLOGICAL/ONCOLOGICAL Hx Blood Disorders: No Hx AIDS: No Hx Anemia: No Hx Cancer: No Hx Chemotherapy: No Hx Cirrhosis: No Hx Hepatitis A: No Hx Hepatitis B: No Hx Hepatitis C: No Hx Metastesis: No Hx Shingles: No Hx Unexplained Bleeding: No - INTEGUMENTARY Hx Dermatological Problems: No - MUSCULOSKELETAL/RHEUMATOLOGICAL Hx Falls: No - GASTROINTESTINAL Hx Gastrointestinal Disorders: No - GENITOURINARY/GYNECOLOGICAL Hx Genitourinary Disorders: Yes (TUBAL LIGATION) Hx Urinary Tract Infection: Yes - PSYCHIATRIC Hx Substance Use: No - SURGICAL HISTORY Hx Coronary Stent: Yes - ANESTHESIA Hx Anesthesia: Yes Hx Anesthesia Reactions: No Hx Malignant Hyperthermia: No Meds Allergies/Adverse Reactions: Allergies Allergy/AdvReac Type Severity Reaction Status Date / Time No Known Allergies Allergy Verified 08/15/17 23:15 - Medications Medications: Current Medications Alprazolam (Xanax) 0.25 mg PO TID [facility] Stop: 03/13/18 10:01 Last Admin: 03/06/18 09:51 Dose: 0.25 mg Arformoterol Tartrate (Brovana) 15 mcg IH [id number] [facility] Budesonide (Pulmicort Respules) 0.5 mg IH [id number] [facility] Clopidogrel Bisulfate (Plavix) 75 mg PO DAILY [facility] Last Admin: 03/06/18 09:51 Dose: 75 mg Furosemide (Lasix) 40 mg PO DAILY [facility] Last Admin: 03/06/18 09:52 Dose: 40 mg Sodium Chloride (Sodium Chloride 0.45%) 1,000 mls @ 40 mls/hr IV .Q24H [facility] Last Admin: 03/06/18 09:50 Dose: 40 mls/hr Lisinopril (Zestril) 5 mg PO DAILY [facility] Last Admin: 03/06/18 09:52 Dose: 5 mg Metoprolol Tartrate (Lopressor) 25 mg PO DAILY [facility] Last Admin: 03/06/18 09:52 Dose: 25 mg Physical Exam - Constitutional Appears: Non-toxic, No Acute Distress, Chronically Ill - Head Exam Head Exam: NORMAL INSPECTION - ENT Exam ENT Exam: Mucous Membranes Moist - Neck Exam Neck exam: Negative for: Meningismus - Respiratory Exam Respiratory Exam: Decreased Breath Sounds. absent: Rales - Cardiovascular Exam Cardiovascular Exam: +S1, +S2 - GI/Abdominal Exam GI & Abdominal Exam: Soft. absent: Tenderness Results - Vital Signs Recent Vital Signs: Last Vital Signs Temp 98.4 F 03/06/18 06:00 Pulse 118 H 03/06/18 06:00 Resp 22 03/06/18 06:00 BP 126/74 03/06/18 09:52 Pulse Ox 100 03/06/18 06:00 - Labs Result Diagrams: 03/05/18 23:01 03/06/18 00:20 Labs: Laboratory Results - last 24 hr 03/05/18 03/06/18 03/06/18 23:01 00:20 01:05 WBC 13.7 H RBC 5.12 Hgb 14.1 D Hct 43.6 MCV 85.2 MCH 27.5 MCHC 32.3 RDW 16.3 H Plt Count 301 MPV 9.3 PT 11.0 INR 0.97 APTT 32.7 Sodium 134 Potassium 4.2 Chloride 95 L Carbon Dioxide 31 Anion Gap 12 BUN 18 Creatinine 0.9 Est GFR ( Amer) > 60 Est GFR (Non-Af Amer) > 60 Random Glucose 114 H Calcium 9.5 Magnesium Total Bilirubin 0.4 AST 26 ALT 25 Alkaline Phosphatase 92 Lactate Dehydrogenase 558 Total Creatine Kinase 519 H CK-MB (CK-2) 1.8 CK-MB (CK-2) % Cancelled Troponin I 0.01 NT-Pro-B Natriuret Pep 52.5 Total Protein 7.6 Albumin 4.5 Globulin 3.1 Albumin/Globulin Ratio 1.4 Digoxin 03/06/18 03/06/18 03/06/18 10:00 10:00 10:00 WBC RBC Hgb Hct MCV MCH MCHC RDW Plt Count MPV PT INR APTT Sodium Potassium Chloride Carbon Dioxide Anion Gap BUN Creatinine Est GFR ( Amer) Est GFR (Non-Af Amer) Random Glucose Calcium 8.9 Magnesium 2.0 Total Bilirubin AST ALT Alkaline Phosphatase Lactate Dehydrogenase Total Creatine Kinase CK-MB (CK-2) CK-MB (CK-2) % Troponin I < 0.01 NT-Pro-B Natriuret Pep Total Protein Albumin Globulin Albumin/Globulin Ratio Digoxin 0.9 Assessment & Plan - Assessment and Plan (Free Text) Plan: Assessment Leukocytosis, source to be determined, in this patient with muscle cramps, R/O due to elevation in CPK levels (possibly drug-induced) history of sepsis secondary to left-sided pyelonephritis with E. coli and HCAP end-stage chronic obstructive pulmonary disease congestive heart failure arthritis hypertension Plan will check blood and urine cx, CXR, PCT and will monitor off antibiotics and trend WBC count
--- NOTE | 2018-03-06 12:03 | RAD ---
Date of service: 03/05/2018 HISTORY: Back pain. No history of trauma provided. COMPARISON: 02/15/2018. FINDINGS: LUNGS: No active pulmonary disease. PLEURA: No significant pleural effusion identified, no pneumothorax apparent. CARDIOVASCULAR: No atherosclerotic calcification present No radiographic findings to suggest acute or significant cardiovascular disease. OSSEOUS STRUCTURES: No significant abnormalities. VISUALIZED UPPER ABDOMEN: Normal. OTHER FINDINGS: None. IMPRESSION: No active disease. No significant interval change compared to the prior examination(s).
[2018-03-06] MEDS ORDERED: Morphine 2 mg/ml ISec IVP PRN (19:09)
[2018-03-06] MEDS: Arformoterol 15 mcg/2 ml Inh Sol IH SCH (21:23)
[2018-03-06] MEDS: Budesonide 0.5 mg/2 ml Inhal Susp UD IH SCH (21:23)
[2018-03-07 06:42] VITALS: O2SAT 97
[2018-03-07 06:50] LABS: HEMOGLOBIN 12.1 g/dL (12.0-16.0); MEAN CELL VOLUME 85.8 fl (80.0-105.0); MEAN CORPUSCULAR HEMOGLOBIN 26.9 pg (25.0-35.0); MEAN CORPUSCULAR HGB CONC 31.3 g/dl (31.0-37.0); MEAN PLATELET VOLUME 9.6 fl (7.0-11.0); RBC 4.5 10^6/uL (3.5-6.1); RED CELL DISTRIBUTION WIDTH 16.3 % (11.5-14.5); WHITE BLOOD COUNT 9.1 10^3/uL (4.5-11.0)
[2018-03-07 07:35] LABS: ALB/GLOB RATIO 1.3 (1.1-1.8); ALBUMIN 3.7 g/dL (3.0-4.8); ALT/SGPT 23 U/L (7-56); AST/SGOT 27 U/L (14-36); BLOOD UREA NITROGEN 23 mg/dL (7-21); CALCIUM 8.7 mg/dL (8.4-10.5); GFR NON-AFRICAN AMERICAN 50
[2018-03-07] MEDS: Arformoterol 15 mcg/2 ml Inh Sol IH SCH (09:00)
[2018-03-07] MEDS: Budesonide 0.5 mg/2 ml Inhal Susp UD IH SCH (09:00)
--- NOTE | 2018-03-07 11:05 | PN ---
DATE: 03/07/2018 PULMONARY PROGRESS NOTE SUBJECTIVE: Lelo was admitted yesterday with what is described as chest pain. The patient is adamant that she does not have chest pain. She had some shortness of breath, which is completely resolved. Obviously the team was concerned that the patient has a history of severe bronchial asthma and multiple cardiac stents with known coronary artery disease. The patient states that she is fine today. The discomfort that she had, she states is chronic, It is not significantly changed. There is no cough or expectoration. No wheezing. The patient claims to be compliant with her medications. She is followed for asthma as an outpatient by Dr. Mcgill, previously been seen by me. There are no further changes in her status according to the patient. She is anxious to be discharged. OBJECTIVE: GENERAL: On physical exam, the patient is comfortable, in no acute respiratory distress. VITAL SIGNS: Stable. She remains afebrile. T-max 98.7, blood pressure 120/60, heart rate 76, O2 sat 99% on room air. HEENT: Normocephalic, atraumatic. NECK: No JVD. No lymphadenopathy. No bruit. CARDIOVASCULAR: Regular rhythm. S1, S2 without murmur, gallop or rub. LUNGS: Clear to percussion and auscultation. ABDOMEN: Soft. Bowels sounds normoactive without mass, guarding, rebound or organomegaly. EXTREMITIES: Reveal no clubbing, cyanosis or edema. There is no Homans' sign. SKIN: Shows no rash or excoriation. NEUROLOGIC: Shows no focal findings. DIAGNOSTIC TESTS AVAILABLE: Chest x-ray is clear with no signs of acute pulmonary or cardiac pathology. IMPRESSION: 1. Status post chest discomfort by history. No complaints at this time. 2. History of severe coronary artery disease with multiple cardiac stents. 3. Severe bronchial asthma, persistent with intermittent exacerbations. Stable at this time. PLAN: Await further evaluation by Cardiology. There are no signs of any acute pulmonary injury at this time. The patient denies any shortness of breath or chest pain. Her lungs are clear to percussion and auscultation. If she is cleared by Cardiology and she can be discharged, she should continue with vigorous inhaled bronchodilators and corticosteroids at home. She should be seen by Dr. Mcgill within 1 week of discharge. If there is any change in her status, she should return to the emergency room immediately. Final disposition pending evaluation by PMD and Cardiology. Silvio Brown MD [facility]
--- NOTE | 2018-03-07 11:32 | CP.PCM.PN ---
Subjective - Date & Time of Evaluation Date of Evaluation: 03/07/18 Time of Evaluation: 09:45 - Subjective Subjective: Patient is feeling a little better, no fevers, not in distress, muscle cramps are a little better. No cough, no diarrhea, no dysuria. Objective - Vital Signs/Intake and Output Vital Signs (last 24 hours): Temp Pulse Resp BP Pulse Ox 98.4 F 118 H 22 126/74 100 03/06/18 06:00 03/06/18 06:00 03/06/18 06:00 03/06/18 09:52 03/06/18 06:00 Intake and Output: 03/06/18 03/06/18 06:59 18:59 Intake Total 380 Balance 380 - Medications Medications: Current Medications Alprazolam (Xanax) 0.25 mg PO TID [facility] Stop: 03/13/18 10:01 Last Admin: 03/06/18 09:51 Dose: 0.25 mg Arformoterol Tartrate (Brovana) 15 mcg IH [id number] [facility] Budesonide (Pulmicort Respules) 0.5 mg IH [id number] [facility] Clopidogrel Bisulfate (Plavix) 75 mg PO DAILY [facility] Last Admin: 03/06/18 09:51 Dose: 75 mg Furosemide (Lasix) 40 mg PO DAILY [facility] Last Admin: 03/06/18 09:52 Dose: 40 mg Sodium Chloride (Sodium Chloride 0.45%) 1,000 mls @ 40 mls/hr IV .Q24H [facility] Last Admin: 03/06/18 09:50 Dose: 40 mls/hr Lisinopril (Zestril) 5 mg PO DAILY [facility] Last Admin: 03/06/18 09:52 Dose: 5 mg Metoprolol Tartrate (Lopressor) 25 mg PO DAILY [facility] Last Admin: 03/06/18 09:52 Dose: 25 mg - Labs Labs: 03/05/18 23:01 03/06/18 00:20 PT 11.0 SECONDS (9.4-12.5) 03/06/18 01:05 INR 0.97 03/06/18 01:05 APTT 32.7 Seconds (25.1-36.5) 03/06/18 01:05 - Constitutional Appears: No Acute Distress, Chronically Ill - Head Exam Head Exam: NORMAL INSPECTION - ENT Exam ENT Exam: Mucous Membranes Moist - Neck Exam Neck Exam: absent: Meningismus - Respiratory Exam Respiratory Exam: Decreased Breath Sounds - Cardiovascular Exam Cardiovascular Exam: +S1, +S2 - GI/Abdominal Exam GI & Abdominal Exam: Soft. absent: Tenderness Assessment and Plan - Assessment and Plan (Free Text) Plan: Assessment Leukocytosis, in this patient with muscle cramps, R/O due to elevation in CPK levels (possibly drug-induced), no evidence of sepsis or bacterial infection history of sepsis secondary to left-sided pyelonephritis with E. coli and HCAP end-stage chronic obstructive pulmonary disease congestive heart failure arthritis hypertension Plan follow up blood and urine cx; CXR is negative for infiltrate, PCT is <0.05 and urinalysis is bland will continue to monitor off antibiotics; WBC count has now normalized
[2018-03-07] MEDS: Sodium Chloride 0.45% 1,000 ML IV SCH (12:15)
[2018-03-07 13:58] VITALS: BP 109/67; RESP 16; TEMP 98.9
--- NOTE | 2018-03-07 14:30 | DS ---
HISTORY OF PRESENT ILLNESS: She is in observation level of care. She was here for cramping, possible rhabdomyolysis, elevated white count, leukocytosis, she is doing better today. She is about 80% improved. She was seen by Infectious Disease, Cardiology and Pulmonology. They also said that she can go and nothing . She is on IV fluids and a basic regular medication that she normally takes. I discussed that she will see a director enterprise systems on the outpatient, come see me next week. She ate well. She felt 80% better, hands are better, just slept in the shoulders right now, little bit of achiness, but she has arthritis in the shoulders. PHYSICAL EXAMINATION VITAL SIGNS: She has 98.2 temperature, 91 pulse, 97/61 blood pressure. It came up to 120/71 blood pressure, 18 respiratory rate, 97% O2 sat on room air. HEENT: Head: Atraumatic, normocephalic. HEART: Regular rate. LUNGS: Clear to auscultation. ABDOMEN: Soft. EXTREMITIES: No edema. LUNGS: Clear. EXTREMITIES: Are better. LABORATORY DATA: She has a 0.9 dig level. 133 sodium, potassium 4.3, BUN is 23, creatinine 1.1, GFR is 50. Sugar is 127, calcium is 8.7, total bili is 0.3, AST is 27, ALT is 83, alk phos 87. All three troponins were less than 0.01, total protein 6.5. Procalcitonin is less than 0.05. INR is 0.97. White count is down to 9.1 from 13.7 and 12.1 hemoglobin, 38.6 hematocrit with 271,000 platelets. I am hoping that this will continue to improve. She will follow up on the outpatient with me next week. I will in fact get her to a director enterprise systems. We will continue with the same home medications, nothing new and she will be discharged, she was here with a body cramping type of picture, looks like rhabdo was elevated, enzymes and leukocytosis and she is on observation. Tom Santana DO DANTE
[2018-03-07 15:54] VITALS: PULSE 100
--- NOTE | 2018-03-07 21:25 | CON ---
DATE: 03/06/2018 CARDIOLOGY CONSULTATION REASON FOR CONSULTATION: Chest pain. HISTORY OF PRESENT ILLNESS: The patient is 62 years old, female, a former smoker, former EtOH abuser, history of coronary artery disease with history of coronary stenting in 2014. The patient, at that time, underwent ELECTRICAL SUBCONTRACTOR and stent stenosis of the first obtuse marginal branch, Her ejection fraction was 25% at that time. The patient although was reported to have chest pain, she describes in her words pins and needles all over her body. The patient denies any dizziness or syncope at this time. SOCIAL HISTORY: Former smoker, former EtOH abuser. MEDICATIONS: Brovana 15 mcg inhalation daily, Lasix 40 mg once a day, Lopressor 25 mg once a day, Plavix 75 mg once a day, Ultram 50 mg p.o. every 8 hours. REVIEW OF SYSTEMS: No fever or chills. No nausea or vomiting. PHYSICAL EXAMINATION GENERAL: The patient is a middle-aged female, who does not appear to be in acute distress. VITAL SIGNS: Blood pressure 109/67, heart rate 89, temperature 98.9, and respirations 16. HEENT: Normocephalic. NECK: No JVD. CHEST: Clear. HEART: S1, S2 regular. EXTREMITIES: 1+ pitting edema. LABORATORY DATA: Digoxin level is 0.9. PT, PTT and INR are within normal limits. SMA-7 is within normal limits except for glucose of 127 and BUN of 23. Three sets of troponins are negative. Hemoglobin, hematocrit ,white count and platelet count are within normal limits. EKG revealed sinus tachycardia at rate 104, LVH with repolarization changes. ASSESSMENT: 1. Chest pain, myocardial infarction is ruled out. 2. History of coronary artery disease status post first obtuse marginal branch stenting in 2014. 3. Systolic heart failure. RECOMMENDATIONS: Continue Lasix 40 mg once a day, Lopressor 25 mg daily, Plavix 75 mg once a day, and Zestril 5 mg daily. Obtain an echocardiographic study. Mark Lindsey MD
== END 2018-03-07 17:25 | disposition home or self-care (01) ==
LOC: ED 22:05 → ERH 03-06 01:32 → 2RNO 03-06 02:38
PROVIDERS: ADMIT Family Medicine; ATTEND Family Medicine
DX: R07.89 Other chest pain (principal); J44.9 Chronic obstructive pulmonary disease, unspecified; I25.10 Atherosclerotic heart disease of native coronary artery without angina pectoris; I50.22 Chronic systolic (congestive) heart failure; I11.0 Hypertensive heart disease with heart failure; D72.829 Elevated white blood cell count, unspecified; M19.90 Unspecified osteoarthritis, unspecified site; Z87.891 Personal history of nicotine dependence; Z87.440 Personal history of urinary (tract) infections; Z87.01 Personal history of pneumonia (recurrent); Z95.5 Presence of coronary angioplasty implant and graft
CPT/HCPCS: 36415; 71045; 80053; 80162; 82310; 82550; 82553; 83615; 83735; 83880; 84145; 84484; 85027; 85610; 85730; 87040; 93005; 94640; 96374; 97116; 97161; 97530; 99285; G0378; G8978; G8979; J2270; J7030

== ENCOUNTER 2018-04-13 11:33 | Observation (INO) | payer MEDICAID ==
[2018-04-13 11:33] VITALS: BMI 30.2
[2018-04-13] MEDS ORDERED: Albuterol-Ipratrop 3 mg / 0.5 (3 ml) UD IH STA (12:09)
--- NOTE | 2018-04-13 12:49 | ED PDOC ---
Arrival/HPI - General Chief Complaint: Shortness Of Breath Time Seen by Provider: 04/13/18 11:59 Historian: Patient - History of Present Illness Narrative History of Present Illness (Text): 04/13/18 12:46 A 62 year old female, whose past medical history includes CHF and COPD, presents to the emergency department with a complaint of 3 day duration shortness of breath. She also notes one episode of right upper chest pain today that lasted a few seconds. The patient notes that she has been treating herself at home with breathing treatments. Her last treatments was several hours ago. The patient notes that she has never been intubated and has not been on antibiotics or steroids recently. The patient denies fevers, chills, headache, dizziness, dyspnea on exertion, cough, abdominal pain, nausea, vomiting, diarrhea, back crista n, neck pain, urinary/bowel changes, or any other complaint. Time/Duration: Other (3 days) Symptom Onset: Sudden Symptom Course: Unchanged Activities at Onset: Rest, Light Context: Home Past Medical History - Provider Review Nursing Documentation Reviewed: Yes - Past History Past History: No Previous - Infectious Disease Hx of Infectious Diseases: None - Tetanus Immunization Tetanus Immunization: Unknown - Past Medical History Past Medical History: No Previous - Cardiac Hx Cardiac Disorders: Yes Hx Congestive Heart Failure: Yes Hx Hypertension: Yes - Pulmonary Hx Chronic Obstructive Pulmonary Disease (COPD): Yes - Neurological Hx Neurological Disorder: No - HEENT Hx HEENT Disorder: Yes (reading glasses) - Renal Hx Renal Disorder: No - Endocrine/Metabolic Hx Endocrine Disorders: No - Hematological/Oncological Hx Blood Disorders: No - Integumentary Hx Dermatological Disorder: No - Musculoskeletal/Rheumatological Hx Falls: No - Gastrointestinal Hx Gastrointestinal Disorders: No - Genitourinary/Gynecological Hx Genitourinary Disorders: Yes (TUBAL LIGATION) Hx Urinary Tract Infection: Yes - Psychiatric Hx Psychophysiologic Disorder: No Hx Substance Use: No - Past Surgical History Past Surgical History: Non-Contributing - Surgical History Hx Coronary Stent: Yes - Anesthesia Hx Anesthesia: Yes Hx Anesthesia Reactions: No Hx Malignant Hyperthermia: No - Suicidal Assessment Feels Threatened In Home Enviroment: No Family/Social History - Physician Review Nursing Documentation Reviewed: Yes Family/Social History: No Known Family HX Smoking Status: Former Smoker Hx Alcohol Use: No Hx Substance Use: No Hx Substance Use Treatment: No Allergies/Home Meds Allergies/Adverse Reactions: Allergies No Known Allergies Allergy (Verified 08/15/17 23:15) Home Medications: Home Meds Medication Instructions Recorded Confirmed RX: Fluticasone/Salmeterol [Advair 1 puff IH PRN PRN 12/17/16 03/05/18 250-50 Diskus] Review of Systems - Physician Review All systems were reviewed & negative as marked: Yes - Review of Systems Constitutional: absent: Fevers Respiratory: SOB. absent: Cough Cardiovascular: Chest Pain. absent: OLIVARES Gastrointestinal: absent: Abdominal Pain, Stool Changes, Diarrhea, Nausea, Vomiting Genitourinary Female: absent: Urine Output Changes Musculoskeletal: absent: Back Pain, Neck Pain Neurological: absent: Headache, Dizziness Physical Exam Vital Signs Reviewed: Yes Vital Signs Temp Pulse Resp BP Pulse Ox 04/13/18 12:02 20 97 04/13/18 11:57 98.3 F 113 H 20 138/83 96 Temperature: Afebrile Blood Pressure: Normal Pulse: Tachycardic Respiratory Rate: Normal Appearance: Positive for: Well-Appearing, Non-Toxic, Comfortable Pain Distress: None Mental Status: Positive for: Alert and Oriented X 3 - Systems Exam Head: Present: Atraumatic, Normocephalic Pupils: Present: PERRL Extroacular Muscles: Present: EOMI Conjunctiva: Present: Normal Mouth: Present: Moist Mucous Membranes Neck: Present: Normal Range of Motion Respiratory/Chest: Present: Decreased Breath Sounds (Decreased breth sounds at both bases. ), Other (Scattered rhonchi.). No: Respiratory Distress, Accessory Muscle Use Cardiovascular: Present: Normal S1, S2, Tachycardic. No: Murmurs Abdomen: No: Tenderness, Distention, Peritoneal Signs Back: Present: Normal Inspection Upper Extremity: Present: Normal Inspection. No: Cyanosis, Edema Lower Extremity: Present: Edema (+2 pitting edema bilaterally.) Neurological: Present: GCS=15, CN II-XII Intact, Speech Normal Skin: Present: Warm, Dry, Normal Color. No: Rashes Psychiatric: Present: Alert, Oriented x 3, Normal Insight, Normal Concentration Medical Decision Making ED Course and Treatment: 04/13/18 12:50 Impression: A 62 year old female presents to the with a complaint of shortness of breath and an episode of chest pain. Plan: -- EKG -- Chest X-ray -- Labs -- Duoneb and SOLU- Medrol -- Reassess and disposition Prior Visits: Notes and results from previous visits were reviewed. Progress Notes: 04/13/18 14:24: Reassessed patient who notes that she is not feeling better. Mild conversation al dyspnea. Breath sounds unchanged. Nurses did not do pre- treatment peak flow. Patient had it done now and currently 110. 04/13/18 14:40: Case discussed with Dr. Santana who accepts patient to his service and request Dr. Piña (Pharmacy Picking Tech) and Dr. Mcgill (Lactation Consultant), for consult. I have discussed the results and plan with the patient, who expresses understanding. Patient in agreement with plan to be admitted. Chest X-ray Dictator : Sandro East MD Report Date : 04/13/2018 14:16:08 IMPRESSION: No interval acute cardiopulmonary disease appreciated. - Lab Interpretations I have reviewed the lab results: Yes - RAD Interpretation Radiology Orders: 04/13/18 12:10 CHEST PORTABLE [RAD] Stat - EKG Interpretation EKG Interpretation (Text): EKG: Ordered, reviewed, and independently interpreted the EKG. Rate : 116 BPM Rhythm : Sinus tachycardia Interpretation : Normal intervals. Normal axis. Non- specific ST and T wave changes. Interpreted by ED Physician: Yes Type: 12 lead EKG - Medication Orders Current Medication Orders: Discontinued Medications Albuterol/Ipratropium (Duoneb 3 Mg/0.5 Mg (3 Ml) Ud) 3 ml IH STAT STA Stop: 04/13/18 12:10 Last Admin: 04/13/18 12:20 Dose: 3 ml Methylprednisolone (Solu-Medrol) 125 mg IVP STAT STA Stop: 04/13/18 12:10 Last Admin: 04/13/18 12:20 Dose: 125 mg IVP Administration Document 04/13/18 12:20 BB (Rec: 04/13/18 12:20 BB [id number]) Charges for Administration # of IVP Administrations 1 - Scribe Statement The provider has reviewed the documentation as recorded by the Scribe Brandy Collado Provider Scribe Attestation: All medical record entries made by the Scribe were at my direction and personally dictated by me. I have reviewed the chart and agree that the record accurately reflects my personal performance of the history, physical exam, medical decision making, and the department course for this patient. I have also personally directed, reviewed, and agree with the discharge instructions and disposition. Disposition/Present on Arrival - Present on Arrival Any Indicators Present on Arrival: Yes History of DVT/PE: No History of Uncontrolled Diabetes: Yes Urinary Catheter: No History of Decub. Ulcer: No History Surgical Site Infection Following: None - Disposition Have Diagnosis and Disposition been Completed?: Yes Diagnosis: COPD exacerbation, Hyperglycemia Disposition: HOSPITALIZED Disposition Time: 11:40 Patient Plan: Admission Patient Problems: Current Active Problems Problem Status Onset COPD exacerbation Acute Hyperglycemia Acute Condition: STABLE
[2018-04-13 13:01] LABS: BASO # 0.01 K/mm3 (0.0-2.0); BASO % 0.1 % (0.0-3.0); GRAN # 12.4 (1.4-6.5); GRAN % 86.4 % (50.0-68.0); LYMPH # 1.4 (1.2-3.4); LYMPH % 9.5 % (22.0-35.0); MEAN CELL VOLUME 86.8 fl (80.0-105.0); MEAN CORPUSCULAR HEMOGLOBIN 27.2 pg (25.0-35.0); MEAN CORPUSCULAR HGB CONC 31.3 g/dl (31.0-37.0); MEAN PLATELET VOLUME 10.3 fl (7.0-11.0); MONO # 0.6 (0.1-0.6); RBC 4.41 10^6/uL (3.5-6.1); RED CELL DISTRIBUTION WIDTH 16.3 % (11.5-14.5); WHITE BLOOD COUNT 14.4 10^3/uL (4.5-11.0)
[2018-04-13 13:13] LABS: BLOOD UREA NITROGEN 21 mg/dL (7-21); CALCIUM 9.4 mg/dL (8.4-10.5); GFR NON-AFRICAN AMERICAN 56
[2018-04-13 13:25] LABS: B-TYPE NATRIURETIC PEPTIDE 204 pg/mL (0-450); TROPONIN I < 0.01 ng/mL
--- NOTE | 2018-04-13 14:19 | RAD ---
Date of service: 04/13/2018 HISTORY: sob COMPARISON: Portable chest 03/05/2018. FINDINGS: LUNGS: No active pulmonary disease. PLEURA: No significant pleural effusion identified, no pneumothorax apparent. CARDIOVASCULAR: No aortic atherosclerotic calcification present. Normal cardiac size. No pulmonary vascular congestion. OSSEOUS STRUCTURES: No significant abnormalities. VISUALIZED UPPER ABDOMEN: Normal. OTHER FINDINGS: None. IMPRESSION: No interval acute cardiopulmonary disease appreciated.
[2018-04-13] MEDS: Albuterol-Ipratrop 3 mg / 0.5 (3 ml) UD IH SCH ×3 (15:11→16:16)
[2018-04-13] MEDS ORDERED: Fluticasone-Salmeterol 250-50mcg Diskus IH PRN (18:04)
[2018-04-13] MEDS ORDERED: Promethazine DM 6.25 mg-15 mg/5 ml Syrup PO PRN (18:06)
[2018-04-13] MEDS: MethylPREDNISolone 40 mg Vial IVP SCH (20:58)
[2018-04-13] MEDS: Arformoterol 15 mcg/2 ml Inh Sol IH SCH (20:59)
--- NOTE | 2018-04-14 01:37 | HP ---
DATE OF EXAM: 04/13/2018 HISTORY OF PRESENT ILLNESS: I know Lelo Denton very well from the office and from multiple hospital admissions for lung issues. She is a 62-year-old female, who presents to the emergency room with 3-day duration of shortness of breath. Outpatient medicines did not work for her. She got to the point where she started to have problems talking and breathing at the same time. She had breathing treatments at home, medications at home just did not help her. PAST MEDICAL/SURGICAL HISTORY: She has a past medical history of CHF, COPD, and hypertension. She wears reading glasses. She has a surgical history of tubal ligation. She has had urinary tract infections. She had coronary stents with Dr. Piña. FAMILY HISTORY: Cardiac disease in the family. SOCIAL HISTORY: Former smoker. No alcohol. No drugs. ALLERGIES: SHE HAS NO KNOWN DRUG ALLERGIES. MEDICATIONS: She takes a bunch of medications. She takes fluticasone, digoxin, Lasix, metoprolol, Plavix, tramadol and lisinopril. REVIEW OF SYSTEMS: No fevers, just short of breath, short of breath when talking. No cough. There was chest pain. There was no palpitation. No abdominal pain. No nausea, vomiting, constipation or diarrhea. No problems urinating. No back pain, no neck pain. No headache, no dizziness. PHYSICAL EXAMINATION: GENERAL: Calm, not anxious. She is well appearing, nontoxic, uncomfortable, mild distress. Alert and oriented x3. VITAL SIGNS: 98.3 temp, 113 pulse, 20 respiratory rate, 138/83 blood pressure, 96% O2 sat. HEENT: Head is atraumatic, normocephalic. Extraocular muscles are intact. Pupils reactive to light and accommodation. Throat is moist. NECK: Supple. Heart: Regular rate. Normal S1, S2. LUNGS: Decreased breath sounds bilaterally, poor inspiration. Scattered rhonchi and wheezes. Definitely using accessory muscles and cannot talk without needing oxygen. ABDOMEN: Soft, nontender with positive bowel sounds. No guarding, no rebound, no CVA tenderness. EXTREMITIES: Trace edema, +2/4 pitting edema bilaterally, may be long-term up the ankle. NEUROLOGIC: GCS is 15. Cranial nerves II-XII grossly intact. Alert and oriented x3. SKIN: Warm and dry. LABORATORY DATA: She had bunch of tests done. The chest x-ray did not show much. The digoxin level is 1.3. She has 142 sodium, potassium 4.4, BUN 21, creatinine 1, GFR is greater than 60. Sugar is 186, calcium 9.4, magnesium 1.9. Lactate dehydrogenase is . Total creatine kinase 183. Troponin I is less than 0.01. BNP is 204. She has a 14.4 white count, 12 hemoglobin, 38.3 hematocrit with 346 platelets. She is going to have consults with Cardiology and Pulmonology. She will be put on Lasix IV, Solu-Medrol IV, Rocephin IV, and her medications. We will check her labs tomorrow. Hopefully, she will improve. She is here for COPD exacerbation, little bit of CHF. Tom Santana DO MTDD
[2018-04-14] MEDS: MethylPREDNISolone 40 mg Vial IVP SCH ×3 (05:58→21:00)
[2018-04-14 06:32] LABS: HEMOGLOBIN 11.4 g/dL (12.0-16.0); MEAN CELL VOLUME 87.4 fl (80.0-105.0); MEAN CORPUSCULAR HEMOGLOBIN 27.1 pg (25.0-35.0); MEAN PLATELET VOLUME 9.8 fl (7.0-11.0); RBC 4.21 10^6/uL (3.5-6.1); RED CELL DISTRIBUTION WIDTH 16.2 % (11.5-14.5); WHITE BLOOD COUNT 12.3 10^3/uL (4.5-11.0)
[2018-04-14 06:48] LABS: ALB/GLOB RATIO 1.6 (1.1-1.8); ALBUMIN 4.1 g/dL (3.0-4.8); ALT/SGPT 23 U/L (7-56); AST/SGOT 11 U/L (14-36); BLOOD UREA NITROGEN 28 mg/dL (7-21); CALCIUM 9.5 mg/dL (8.4-10.5); GFR NON-AFRICAN AMERICAN > 60
[2018-04-14] MEDS ORDERED: Albuterol-Ipratrop 3 mg / 0.5 (3 ml) UD IH PRN (07:21)
[2018-04-14] MEDS: Arformoterol 15 mcg/2 ml Inh Sol IH SCH ×2 (07:38→20:11)
[2018-04-14] MEDS: Budesonide 0.5 mg/2 ml Inhal Susp UD IH SCH ×2 (07:39→20:11)
[2018-04-14] MEDS: Albuterol-Ipratrop 3 mg / 0.5 (3 ml) UD IH SCH ×3 (07:39→20:11)
--- NOTE | 2018-04-14 10:22 | PN ---
DATE: 04/14/2018 SUBJECTIVE: She is resting comfortably in bed. She is still little bit short of breath, but may be a little bit improved. No wheezing today. MEDICATIONS: She is on Brovana, DuoNebs, Lanoxin, Lasix IV, Levaquin, Lipitor, Lopressor, Phenergan, Plavix, Pulmicort, Rocephin IV, Solu-Medrol down to 40 IV every 12 hours, Ultram, and Zestril. OBJECTIVE: VITAL SIGNS: She has a 97.3 temperature, 73 pulse, 111/66 blood pressure, 18 respiratory rate, 99% O2 sat on 2 liters. HEENT: Head is atraumatic, normocephalic. Throat is moist, NECK: Supple. HEART: Regular rate. LUNGS: Decreased breath sounds. No wheezes at this time, wheezes yesterday, but decreased breath sounds, but clear. ABDOMEN: Soft. EXTREMITIES: Still trace edema. LABORATORY DATA: She has a 12.3 white count, getting better; 11.4 hemoglobin; 36.8 hematocrit with 314 platelets. Sodium 138, potassium 4.8, BUN 20, creatinine 0.9, GFR is greater than 60, sugar is 155, calcium is 9.5, total bili is 0.2. AST is 11, ALT is 23, alk phos 55. Troponin I is less than 0.01, total protein is 6.7. BNP is 204. TSH is 1.3. She was seen by Pulmonology. We decreased the Solu-Medrol today, possibly tomorrow. If she does well chance of discharging her tomorrow. We will see how she does overnight. Still with COPD, CHF Tom Santana DO [email or web address]
[2018-04-14] MEDS: cefTRIAXone 1 gm 1 GM/100 ML BAG IVPB SCH (10:26)
[2018-04-14] MEDS: levoFLOXacin 500 MG TAB PO SCH (10:27)
--- NOTE | 2018-04-14 11:09 | CARD ---
APPROVED REPORT Date of service: 04/13/2018 EKG Measurement Heart [id number] <Conclusion> Sinus tachycardia NSSTW changes LVH by voltage Baseline Artifact
--- NOTE | 2018-04-14 12:54 | CON ---
DATE: 04/14/2018 PULMONARY CONSULTATION REASON FOR PULMONARY CONSULTATION: Chronic obstructive pulmonary disease. REFERRING PHYSICIAN FOR THIS PULMONARY CONSULTATION: Dr. Santana. SOURCE OF HISTORY: History is obtained via extensive discussion with the night nurse. I have also reviewed the chart at length, and discussed the case with the patient at length. HISTORY OF PRESENT ILLNESS: The patient is a chronically ill 62-year-old female, with past medical history significant for advanced chronic obstructive pulmonary disease, asthma, recurrent bronchitis, coronary artery disease, status post multiple cardiac stents, who presents to [facility] with a 3-day history of increasing shortness of breath at rest, dyspnea on exertion, cough, and minimal sputum production. The patient also states to a fleeting episode of right upper chest discomfort yesterday - lasted seconds - no recurrence. There is no history of coughing up of blood. There is no history of chest discomfort - made worse with deep respirations. There is no history of temperatures, chills or infectious exposure. There is no history of night sweats, weight loss or appetite change prior to the above events. No history of leg or calf pains. No history of syncope or diaphoresis. No history of recent travel or trauma. REVIEW OF SYSTEMS: No history of nausea, vomiting, or diarrhea. No acute urinary symptoms. No new neurologic complaints. Rest of the review of systems is negative. ALLERGIES: NO KNOWN ALLERGIES. SOCIAL HISTORY: Positive for extensive tobacco usage. No alcohol. FAMILY HISTORY: No inheritable diseases. HOME MEDICATIONS: Include Lopressor, Zestril, Advair, Lanoxin, Plavix, Lipitor, and Lasix. PHYSICAL EXAMINATION: GENERAL: The patient appears comfortable this morning. She is not short of breath at rest. She is not using accessory muscles for breathing. VITAL SIGNS: Temperature is 97.3, pulse 73, respirations 18, blood pressure 111/66. Oxygen saturation on nasal cannula is 99%. HEENT: Normocephalic, atraumatic. No JVD. CARDIOVASCULAR: Positive S1, S2. No S3 gallop. LUNGS: Decreased breath sounds at the bases. Minimal bilateral rhonchi. No wheezing. EXTREMITIES: No clubbing, cyanosis or edema. Calves are nontender to palpation. GI: Abdomen is soft, nontender and nondistended. Bowel sounds are positive. SKIN: No acute rash. NEUROLOGIC: Exam limited at the present time. PERTINENT LABORATORY DATA: Chest x-ray was done yesterday and reviewed. There is no acute cardiopulmonary disease noted. CBC: White count 12.3K, hemoglobin 11.4, hematocrit 36.8, platelets of 31 4,000. Complete metabolic profile: BUN 28, glucose 155. Rest of the metabolic profile is within normal limits. IMPRESSION: 1. Acute bronchitis. 2. Advanced chronic obstructive pulmonary disease. 3. Asthma. 4. Coronary artery disease. PLAN: Again, I did discuss the case with the night nurse at length. I have also reviewed the chart at length, discussed case with the patient at length. The patient presents to [facility] with a 3-day history of worsening pulmonary symptoms. In addition, as above, the patient also states to a fleeting (lasting seconds) episode of right-sided chest discomfort yesterday. Again, after this occurrence, there have been no other incidences of chest discomfort. Cardiology evaluation with Dr. Piña has been ordered. I did review the chest x-ray as above. There is no active disease noted. On physical exam, there is only mild bronchospasm noted. In addition, there is no significant alveolar-arterial gradient. I will start the patient on DuoNeb treatments and decrease the intravenous steroids this morning. I will also continue with the Pulmicort. I will also add oral Levaquin - given her above history. The patient does state to feeling much better this morning, and is clinically improved. Additional pulmonary intervention will be based on the clinical status of the patient. I will discuss the above with Dr. Santana this morning. Thank you very much for this pulmonary consultation. Alex Mcgill MD DANTE
[2018-04-14] MEDS: Digoxin 250 mcg (0.25 mg) Tab PO SCH (14:38)
--- NOTE | 2018-04-14 19:14 | CON ---
DATE OF CONSULTATION: 04/14/2018 HISTORY: The patient is a 62-year-old woman who presents with 3 days of shortness of breath. She also suffers from hypercholesterolemia. The patient denies angina. PAST MEDICAL HISTORY: COPD, history of a dilated cardiomyopathy and history of PTCA and stent in the past. She was also followed over the past several years. SOCIAL HISTORY: The patient has not returned to smoking. REVIEW OF SYSTEMS: A 14-point review of systems is reviewed in detail. Exertional dyspnea with less than 10 steps. Negative angina, negative edema in the lower extremities, negative chest pain. PHYSICAL EXAMINATION: VITAL SIGNS: Blood pressure 155/91, heart rate is 100. NECK: Negative JVD. LUNGS: Decreased breath sounds bilaterally. HEART: S1 and S2. EXTREMITIES: Without edema. DIAGNOSTIC DATA: EKG shows normal sinus rhythm with nonspecific ST-T changes. Troponins are negative x1. BUN and creatinine normal. ProBNP was 204. Her chest x-ray reveals no increased vascular congestion. IMPRESSION: 1. Exacerbation of chronic obstructive pulmonary disease. 2. Coronary artery disease. 3. History of ischemic dilated cardiomyopathy with an EF of 25%. 4. Hypertension. 5. Diabetes mellitus. PLAN: Given these findings, I agree with giving the patient a trial of IV Lasix. We will repeat an echocardiogram to evaluate her LV function. Kris Piña MD
[2018-04-14 21:23] LABS: TROPONIN I < 0.01 ng/mL
[2018-04-15] MEDS: Albuterol-Ipratrop 3 mg / 0.5 (3 ml) UD IH SCH ×3 (02:33→13:32)
[2018-04-15 05:28] VITALS: O2SAT 98
[2018-04-15] MEDS: Arformoterol 15 mcg/2 ml Inh Sol IH SCH (07:48)
[2018-04-15] MEDS: Budesonide 0.5 mg/2 ml Inhal Susp UD IH SCH (07:48)
[2018-04-15 09:12] LABS: HEMOGLOBIN 12.4 g/dL (12.0-16.0); MEAN CELL VOLUME 87.6 fl (80.0-105.0); MEAN CORPUSCULAR HEMOGLOBIN 27.5 pg (25.0-35.0); MEAN CORPUSCULAR HGB CONC 31.4 g/dl (31.0-37.0); MEAN PLATELET VOLUME 9.8 fl (7.0-11.0); RBC 4.51 10^6/uL (3.5-6.1); RED CELL DISTRIBUTION WIDTH 15.8 % (11.5-14.5); WHITE BLOOD COUNT 14.9 10^3/uL (4.5-11.0)
[2018-04-15 09:24] LABS: ALB/GLOB RATIO 1.5 (1.1-1.8); ALBUMIN 4.3 g/dL (3.0-4.8); ALT/SGPT 22 U/L (7-56); AST/SGOT 12 U/L (14-36); BLOOD UREA NITROGEN 47 mg/dL (7-21); CALCIUM 8.8 mg/dL (8.4-10.5); GFR NON-AFRICAN AMERICAN 50
[2018-04-15 09:50] LABS: TROPONIN I < 0.01 ng/mL
--- NOTE | 2018-04-15 09:59 | DS ---
She is going to be discharged today. She did have some chest pain, but the troponin was negative. There might be a cardiac test pending this morning but I am sure she will do well. She is much improved clinically right now. PHYSICAL EXAMINATION: VITAL SIGNS: She has 98.2 temperature, 88 pulse, 126/77 blood pressure, 20 respiratory rate, 90% O2 sat on nasal cannula. HEENT: Head: Atraumatic, normocephalic. HEART: Regular rate. LUNGS: Decreased breath sounds but clear to auscultation. No wheezes, no rhonchi. No rales. No chest pain at this time. No shortness of breath. No dyspnea on exertion. ABDOMEN: Soft, nontender. Positive bowel sounds. EXTREMITIES: No edema. MEDICATIONS: She is going to go home on Brovana, DuoNebs, Lanoxin, Lasix, Levaquin, Lipitor, metoprolol, promethazine, Plavix, prednisone 40 for 3 days and 30 for 3 days and 20 for 3 days and 10 for 3 days, Pulmicort, Toradol, Ultram, Zestril. LABORATORY DATA: She has 138 sodium, potassium 4.8, BUN 20, creatinine 0.9, GFR is greater than 60, sugars 155, calcium is 9.5. Phosphorous 3.8, magnesium 2.3, total bili is 0.2, AST is 11, ALT is 23, alk phos is 85, troponin is less than 0.01 done this morning. Total protein 6.7. White count 12.3, better, 11.4 hemoglobin, 36.8 hematocrit, 314 platelets. She was seen by grapple crew leader and the hot press operator. She has exacerbation of COPD, coronary artery disease, ischemic dilated cardiomyopathy and hypertension and diabetes and she should do well, seen in the office either this week or next week. Tom Santana DO
--- NOTE | 2018-04-15 10:35 | CARD ---
APPROVED REPORT Date of service: 04/14/2018 EKG Measurement Heart [id number] <Conclusion> Normal sinus rhythm Minimal voltage criteria for LVH, may be normal variant Nonspecific T wave abnormality
[2018-04-15] MEDS: levoFLOXacin 500 MG TAB PO SCH (11:14)
[2018-04-15] MEDS: cefTRIAXone 1 gm 1 GM/100 ML BAG IVPB SCH (11:15)
--- NOTE | 2018-04-15 11:46 | PN ---
DATE: 04/15/2018 SUBJECTIVE: The patient appears very comfortable this morning. She is not short of breath at rest. PHYSICAL EXAMINATION: VITAL SIGNS: Temperature 98.2, pulse 83, respirations 18/20, blood pressure 126/77. Oxygen saturation on nasal cannula is 98%. HEENT: Normocephalic, atraumatic. NECK: No JVD. CARDIOVASCULAR: Positive S1, S2. No S3 gallop. LUNGS: Clear bilaterally this morning. EXTREMITIES: No clubbing, cyanosis or edema. Calves are nontender to palpation. GI: Abdomen is soft, nontender and nondistended. Bowel sounds are positive. SKIN: No acute rash. NEUROLOGIC: Exam limited at the present time. IMPRESSION: 1. Acute bronchitis. 2. Advanced chronic obstructive pulmonary disease. 3. Asthma. 4. Coronary artery disease. PLAN: The patient appears very comfortable this morning. She is not short of breath at rest. She does state to feeling much better overall. I did discuss the case with the night nurse at length. The night nurse stated that the patient had a good night overall. However, earlier in the shift, she did have another episode of chest discomfort. This episode lasted seconds, without recurrence. The patient denies chest discomfort at the time of my examination. On physical exam, her lungs are now clear. In addition, the oxygen saturation on nasal cannula is 98%. I will continue the with current nebulizer treatments and change to oral steroids this morning. Cardiology evaluation is ongoing. Input by Dr. Piña is noted. Clinical status of the patient is definitely improved - compared to the initial presentation. However, given the above, the future status/prognosis for this patient does remain guarded. I will discuss the above with Dr. Santana. Alex Mcgill MD MTDD
[2018-04-15 12:44] VITALS: BP 152/86; PULSE 85; RESP 19; TEMP 97.1
[2018-04-15] MEDS: Digoxin 250 mcg (0.25 mg) Tab PO SCH (14:08)
[2018-04-15 14:09] VITALS: PULSE 98
--- NOTE | 2018-04-15 16:45 | PN ---
DATE: 04/15/2018 CARDIOLOGY FOLLOWUP. SUBJECTIVE: The patient's breathing is much improved. PHYSICAL EXAMINATION: VITAL SIGNS: Stable. NECK: Negative JVD. LUNGS: Without rales. HEART: S1 and S2. EXTREMITIES: Without edema. LABORATORY DATA: Repeat echocardiogram shows good LV function with an EF of 54%. IMPRESSION: 1. Bronchitis. 2. History of cardiomyopathy, which has now improved. 3. Coronary artery disease. 4. Hypertension. 5. Diabetes mellitus. PLAN: Given these findings, the patient is doing well. We can follow her up as an outpatient and follow-up stress test would be appropriate. Kris Piña MD
--- NOTE | 2018-04-15 20:30 | CARD ---
APPROVED REPORT Date of service: 04/15/2018 EXAM: Two-dimensional and M-mode echocardiogram with Doppler and color Doppler. INDICATION Congestive Heart Failure 2D DIMENSIONS Left Atrium (2D)3.9 (1.6-4.0cm)IVSd1.1 (0.7-1.1cm) LVDd5.0 (3.9-5.9cm)PWd1.2 (0.7-1.1cm) LVDs3.6 (2.5-4.0cm)FS (%) 28.1 % LVEF (%)53.9 (>50%) M-Mode DIMENSIONS Aortic Root2.80 (2.2-3.7cm)Aortic Cusp Exc.1.70 (1.5-2.0cm) Aortic Valve AoV Peak Qysevddn849.0cm/Guzman Peak GR.16mmHg Mitral Valve MV E Sfsgatmz44.5cm/sMV A Odtzcrkb172.0cm/sE/A ratio0.8 TDI Lateral E' Peak V14.10cm/sMedial E' Peak V5.95cm/sE/Lateral E'5.5 E/Medial E'13.0 Pulmonary Valve PV Peak Bolkjlmj04.5cm/sPV Peak Grad.2mmHg Tricuspid Valve TR Peak Zvmjfgxu164uh/sRAP LZAOOCCZ52syYfNW Peak Gr.18mmHg [id number] LEFT VENTRICLE The left ventricle is normal size. There is normal left ventricular wall thickness. The left ventricular function is normal. The left ventricular ejection fraction is within the normal range. There is normal LV segmental wall motion. Transmitral Doppler flow pattern is Grade I-abnormal relaxation pattern. Apical echoes consistent with trabeculae are noted. Cannot rule out associated thrombi. RIGHT VENTRICLE The right ventricle is normal size. There is normal right ventricular wall thickness. The right ventricular systolic function is normal. ATRIA The left atrium is mildly dilated. The right atrium size is normal. AORTIC VALVE The aortic valve is not well visualized. No aortic regurgitation is present. There is no aortic valvular stenosis. MITRAL VALVE The mitral valve is normal in structure. Mitral regurgitation is trace. There is no mitral valve stenosis. TRICUSPID VALVE The tricuspid valve is normal in structure. There is trace tricuspid regurgitation. PULMONIC VALVE The pulmonary valve is normal in structure. There is no pulmonic valvular regurgitation. GREAT VESSELS The aortic root is normal in size. The IVC is normal in size and collapses >50% with inspiration. PERICARDIAL EFFUSION There is a trace pericardial effusion. <Conclusion> There is normal left ventricular wall thickness. The left ventricular function is normal. The left ventricular ejection fraction is within the normal range. There is normal LV segmental wall motion. Transmitral Doppler flow pattern is Grade I-abnormal relaxation pattern. Apical echoes consistent with trabeculae are noted. Cannot rule out associated thrombi.
--- NOTE | 2018-04-17 06:26 | PQF ---
PROVIDER RESPONSE TEXT: Moderate persistent REVIEWER QUERY TEXT: Asthma Specificity and Type Asthma is documented in the Medical Record. Please specify the type and severity of asthma and indic ate if this is associated with exacerbation or status asthmaticus. Such as: -- Mild intermittent -- Mild persistent -- Moderate persistent -- Severe persistent -- Exercise induced bronchospasm -- Cough variant asthma -- Other, please specify The patient's Clinical Indicators include: You document asthma on your consult. Please specifiy type/severity as per below. Thank you. Query created by: Gail Thompson on 04/16/2018 2:34 PM Electronically signed by: Alex OCAMPO 04/17/2018 6:23 AM
== END 2018-04-15 15:29 | disposition home or self-care (01) ==
LOC: ED 11:33 → INTOOBSV 14:48 → ERH 14:48 → 2RNO 21:59
PROVIDERS: ADMIT Family Medicine; ATTEND Family Medicine
DX: J44.1 Chronic obstructive pulmonary disease with (acute) exacerbation (principal); I42.0 Dilated cardiomyopathy; I11.0 Hypertensive heart disease with heart failure; E11.65 Type 2 diabetes mellitus with hyperglycemia; I50.9 Heart failure, unspecified; I25.10 Atherosclerotic heart disease of native coronary artery without angina pectoris; J44.0 Chronic obstructive pulmonary disease with (acute) lower respiratory infection; J45.40 Moderate persistent asthma, uncomplicated; E78.00 Pure hypercholesterolemia, unspecified; I25.5 Ischemic cardiomyopathy; J20.9 Acute bronchitis, unspecified; Z87.440 Personal history of urinary (tract) infections; Z87.891 Personal history of nicotine dependence; Z95.5 Presence of coronary angioplasty implant and graft; Z98.51 Tubal ligation status
CPT/HCPCS: 36415; 71045; 80048; 80053; 80162; 82550; 83615; 83735; 83880; 84100; 84484; 85025; 85027; 93005; 93306; 94640; 96374; 96375; 96376; 99284; G0378; J0696; J1885; J1940; J2920; J2930

== ENCOUNTER 2018-05-11 10:22 | Observation (INO) | payer MEDICAID ==
[2018-05-11] MEDS ORDERED: Albuterol-Ipratrop 3 mg / 0.5 (3 ml) UD IH STA (11:10)
--- NOTE | 2018-05-11 11:18 | ED PDOC ---
Arrival/HPI - General Chief Complaint: Respiratory Distress Time Seen by Provider: 05/11/18 11:01 Historian: Patient - History of Present Illness Narrative History of Present Illness (Text): 62 year old F w/ h/o COPD presenting to the Emergency Room for shortness of breath. The patient states she felt generalized myalgias and dyspnea since 2130 hrs last night, but felt worsening of her symptoms this morning. She reports having restless legs with chest tightness and was unable to inspire air. She reports using Motrin for her pain, but denies any alleviation in symptoms. She denies chest pain, nausea, fevers, chills, back pain, abdominal pain, weakness, syncopal episodes. PMD: Dr. Santana Specialist: Dr. Piña(cardiology), Dr. Mcgill(pulmology) Time/Duration: 24 hours Symptom Onset: Sudden Symptom Course: Unchanged Quality: Tightness Activities at Onset: Rest Context: Home Past Medical History - Provider Review Nursing Documentation Reviewed: Yes - Travel History Have you recently traveled outside [place] w/in the past 3 mons?: No - Past History Past History: No Previous - Infectious Disease Hx of Infectious Diseases: None - Tetanus Immunization Tetanus Immunization: Unknown - Past Medical History Past Medical History: No Previous - Cardiac Hx Cardiac Disorders: Yes Hx Congestive Heart Failure: Yes Hx Hypertension: Yes - Pulmonary Hx Chronic Obstructive Pulmonary Disease (COPD): Yes - Neurological Hx Neurological Disorder: No - HEENT Hx HEENT Disorder: Yes (reading glasses) - Renal Hx Renal Disorder: No - Endocrine/Metabolic Hx Endocrine Disorders: No - Hematological/Oncological Hx Blood Disorders: No - Integumentary Hx Dermatological Disorder: No - Musculoskeletal/Rheumatological Hx Falls: No - Gastrointestinal Hx Gastrointestinal Disorders: No - Genitourinary/Gynecological Hx Genitourinary Disorders: Yes (TUBAL LIGATION) Hx Urinary Tract Infection: Yes - Psychiatric Hx Psychophysiologic Disorder: No Hx Substance Use: No - Past Surgical History Past Surgical History: Non-Contributing - Surgical History Hx Coronary Stent: Yes Other/Comment: HX OF TUBAL LIGATION 1985 - Anesthesia Hx Anesthesia: Yes Hx Anesthesia Reactions: No Hx Malignant Hyperthermia: No - Suicidal Assessment Feels Threatened In Home Enviroment: No Family/Social History - Physician Review Nursing Documentation Reviewed: Yes Family/Social History: Unknown Family HX Smoking Status: Former Smoker Hx Alcohol Use: Yes (social) Hx Substance Use: No Hx Substance Use Treatment: No Allergies/Home Meds Allergies/Adverse Reactions: Allergies No Known Allergies Allergy (Verified 08/15/17 23:15) Home Medications: Home Meds Medication Instructions Recorded Confirmed Fluticasone/Salmeterol [Advair 1 puff IH PRN PRN 12/17/16 05/11/18 250-50 Diskus] Arformoterol [Brovana] 15 mcg IH Q12 04/15/18 05/11/18 traMADol [Ultram] 50 mg PO TID PRN 04/15/18 05/11/18 Review of Systems - Physician Review All systems were reviewed & negative as marked: Yes - Review of Systems Constitutional: absent: Fevers Respiratory: SOB, Cough, Wheezing Cardiovascular: absent: Chest Pain, Palpitations Gastrointestinal: absent: Abdominal Pain Physical Exam Vital Signs Reviewed: Yes Vital Signs Temp Pulse Resp BP Pulse Ox 05/11/18 11:00 99.1 F 111 H 18 117/51 L 98 Temperature: Afebrile Blood Pressure: Normal Pulse: Tachycardic Respiratory Rate: Other (Able to speak in full sentences) Appearance: Positive for: Well-Appearing, Non-Toxic, Comfortable Mental Status: Positive for: Alert and Oriented X 3 - Systems Exam Head: Present: Atraumatic, Normocephalic Pupils: Present: PERRL Extroacular Muscles: Present: EOMI Conjunctiva: Present: Normal Mouth: Present: Moist Mucous Membranes Respiratory/Chest: Present: Wheezes, Decreased Breath Sounds, Retracting, Tachypneic Cardiovascular: Present: Tachycardic Abdomen: Present: Normal Bowel Sounds. No: Tenderness, Distention Upper Extremity: Present: Normal Inspection, Capillary Refill < 2s. No: Edema Neurological: Present: GCS=15, CN II-XII Intact, Speech Normal Skin: Present: Warm, Dry, Normal Color. No: Rashes Psychiatric: Present: Alert, Oriented x 3, Normal Insight, Normal Concentration Medical Decision Making ED Course and Treatment: 05/11/18 11:55 Impression 62F w/ dyspnea and shortness of breath Differential Diagnoses Includes But Is Not Limited To: --COPD exacerbation --Restless Legs syndrome --Influenza --Bronchitis Plan --Labs --EKG --Chest X-ray --Rapid Flu --Magnesium Sulfate --Duonebs --Solumedrol --VBG --Reassess & disposition Progress Notes 05/11/18 12:40 Leukocytosis of 11 noted with no obvious electrolyte abnormalities. VBG shows elevated lactate of 2.5. HR high 90s with patient showing signs of restlessness. Chest X-ray shows no evidence of focal consolidation, but shows vascular congestion. Will treat for presumed respiratory tract infection. Troponin and BNP pending. 05/11/18 12:[address] Santana(PCP) who agrees with plan for observation. He requests Drs. Piña /Artem to be consulted on the case. - Lab Interpretations Lab Results: 05/11/18 11:40 05/11/18 11:40 Lab Results 05/11/18 12:05: Influenza Typ A,B (EIA) Negative for flu a/b 05/11/18 11:40: Sodium 135, Chloride 97 L, Potassium 4.4, Carbon Dioxide 27, Anion Gap 15, BUN 18, Creatinine 1.0, Est GFR ( Amer) > 60, Est GFR (Non- Af Amer) 56, Random Glucose 133 H, Calcium 9.9, Magnesium 2.3 H, Total Bilirubin 0.3, AST 34, ALT 17, Alkaline Phosphatase 89, Troponin I < 0.01, NT-Pro-B Natriuret Pep 67.4, Total Protein 7.9, Albumin 4.7, Globulin 3.2, Albumin/Globulin Ratio 1.5 05/11/18 11:40: pO2 220 H, VBG pH 7.40, VBG pCO2 44.0, VBG HCO3 27.3, VBG Total CO2 28.7 H, VBG O2 Sat (Calc) 99.5 H, VBG Base Excess 2.0, VBG Potassium 4.2, Sodium 134.0, Chloride 98.0, Glucose 136 H, Lactate 2.5 H, FiO2 21.0, Venous Blood Potassium 4.2 05/11/18 11:40: Urine Color Yellow, Urine Appearance Clear, Urine pH 6.0, Ur Specific [place] 1.020, Urine Protein Negative, Urine Glucose (UA) Negative, Urine Ketones Negative, Urine Blood Negative, Urine Nitrate Negative, Urine Bilirubin Negative, Urine Urobilinogen 0.2, Ur Leukocyte Esterase Large H, Urine RBC Tntc H, Urine WBC 1 - 3, Ur Epithelial Cells 4 - 5, Amorphous Sediment Few, Urine Bacteria Many, Urine Other Uyeast 05/11/18 11:40: PT 11.2, INR 0.97, APTT 29.7 05/11/18 11:40: WBC 11.3 H D, RBC 4.56, Hgb 12.3, Hct 39.4, MCV 86.4, MCH 27.0, MCHC 31.2, RDW 15.5 H, Plt Count 392, MPV 9.7, Gran % 65.7, Lymph % (Auto) 25.4, [place] % (Auto) 8.5 H, Eos % (Auto) 0.3 L, Baso % (Auto) 0.1, Gran # 7.41 H, Lymph # (Auto) 2.9, [place] # (Auto) 1.0 H, Eos # (Auto) 0.0, Baso # (Auto) 0.01 I have reviewed the lab results: Yes - RAD Interpretation Radiology Orders: 05/11/18 11:10 CHEST PORTABLE [RAD] Stat - EKG Interpretation EKG Interpretation (Text): 05/11/18 11:02 EKG shows Sinus Tachycardia at 102 BPM with slightly peaked T-waves with no prior comparison. Interpreted by me. Interpreted by ED Physician: Yes Type: 12 lead EKG - Medication Orders Current Medication Orders: Albuterol/Ipratropium (Duoneb 3 Mg/0.5 Mg (3 Ml) Ud) 3 ml IH STAT STA Stop: 05/11/18 11:11 Disposition/Present on Arrival - Present on Arrival History of DVT/PE: No History of Uncontrolled Diabetes: Yes Urinary Catheter: No History of Decub. Ulcer: No History Surgical Site Infection Following: None - Disposition Disposition: HOSPITALIZED
[2018-05-11] MEDS ORDERED: Magnesium Sulfate 1 gm in D5W 1 GM/100 ML BAG IVPB ONE (11:19)
[2018-05-11] MEDS ORDERED: Sodium Chloride 0.9% 1,000 ML IV STA (11:19)
[2018-05-11 12:14] LABS: VENOUS BLOOD GAS PO2 220 mm/Hg (30-55)
[2018-05-11 12:18] LABS: BASO # 0.01 K/mm3 (0.0-2.0); BASO % 0.1 % (0.0-3.0); EOS % 0.3 % (1.5-5.0); GRAN # 7.41 (1.4-6.5); GRAN % 65.7 % (50.0-68.0); HEMOGLOBIN 12.3 g/dL (12.0-16.0); LYMPH # 2.9 (1.2-3.4); LYMPH % 25.4 % (22.0-35.0); MEAN CELL VOLUME 86.4 fl (80.0-105.0); MEAN CORPUSCULAR HGB CONC 31.2 g/dl (31.0-37.0); MEAN PLATELET VOLUME 9.7 fl (7.0-11.0); MONO % 8.5 % (1.0-6.0); RBC 4.56 10^6/uL (3.5-6.1); RED CELL DISTRIBUTION WIDTH 15.5 % (11.5-14.5); URINE BILIRUBIN NEGATIVE (NEGATIVE); URINE BLOOD NEGATIVE (NEGATIVE); URINE GLUCOSE (UA) NEGATIVE (NEGATIVE); URINE LEUKOCYTE ESTERASE LARGE Leu/uL (NEGATIVE); URINE PROTEIN NEGATIVE mg/dL (<30 mg/dL); URINE UROBILINOGEN 0.2 E.U./dL (<1 E.U./dL); WHITE BLOOD COUNT 11.3 10^3/uL (4.5-11.0)
[2018-05-11] MEDS ORDERED: Albuterol 0.083% Inhal Sol (2.5 mg/3 mL) UD INH STA (12:19)
[2018-05-11 12:27] LABS: INR 0.97; PARTIAL THROMBOPLASTIN TIME 29.7 Seconds (25.1-36.5); PROTHROMBIN TIME 11.2 SECONDS (9.4-12.5)
[2018-05-11 12:35] LABS: ALB/GLOB RATIO 1.5 (1.1-1.8); ALBUMIN 4.7 g/dL (3.0-4.8); ALT/SGPT 17 U/L (7-56); AST/SGOT 34 U/L (14-36); BLOOD UREA NITROGEN 18 mg/dL (7-21); CALCIUM 9.9 mg/dL (8.4-10.5); GFR NON-AFRICAN AMERICAN 56
[2018-05-11 12:39] LABS: B-TYPE NATRIURETIC PEPTIDE 67.4 pg/mL (0-450); TROPONIN I < 0.01 ng/mL; URINE APPEARANCE CLEAR (CLEAR); URINE COLOR YELLOW (YELLOW)
[2018-05-11] MEDS ORDERED: Azithromycin 500MG/NS 250ml 500 MG/250 ML BAG IVPB STA (12:42)
[2018-05-11 12:44] LABS: URINE RBC TNTC /hpf (0-2)
[2018-05-11] MEDS ORDERED: cefTRIAXone 1 gm 1 GM/100 ML BAG IVPB STA (12:44)
[2018-05-11 12:45] LABS: URINE AMORPHOUS SEDIMENT FEW /hpf; URINE BACTERIA MANY /hpf
--- NOTE | 2018-05-11 13:12 | RAD ---
Date of service: 05/11/2018 HISTORY: sob COMPARISON: 04/13/2018 FINDINGS: LUNGS: No active pulmonary disease. PLEURA: No significant pleural effusion identified, no pneumothorax apparent. CARDIOVASCULAR: No aortic atherosclerotic calcification present. Normal cardiac size. No pulmonary vascular congestion. OSSEOUS STRUCTURES: No significant abnormalities. VISUALIZED UPPER ABDOMEN: Normal. OTHER FINDINGS: None. IMPRESSION: No active disease.
[2018-05-11 16:09] LABS: VENOUS BLOOD GAS BASE EXCESS -2.6 mmol/L (0.0-2.0); VENOUS BLOOD GAS PO2 209 mm/Hg (30-55); VENOUS BLOOD PH 7.32 (7.32-7.43)
--- NOTE | 2018-05-11 19:47 | CON ---
DATE: 05/11/2018 CARDIOLOGY CONSULTATION HISTORY OF PRESENT ILLNESS: The patient is a 62-year-old woman who presents with shortness of breath. She has had symptoms consistent with a viral infection over the past 24 hours. Her symptoms appear to be worse. She also expresses an episode of chest tightness which is pleuritic in nature, associated with shortness of breath. PAST MEDICAL HISTORY: Includes a history of PTCA and stent in 2014 of the circumflex artery. Her last cardiac evaluation included a stress test on 04/23/2018 which showed improvement of her perfusion defects on her stress test. Echocardiogram reveals an ejection fraction of 54% with wall motion abnormalities, no ischemia was noted. SOCIAL HISTORY: The patient is a former smoker. REVIEW OF SYSTEMS: Fourteen-point review of systems was reviewed. No additional symptomatology was noted. PHYSICAL EXAM: VITAL SIGNS: Blood pressure is 115/58, heart rate is in the 90s. NECK: Negative JVD. LUNGS: Bilateral rhonchi. HEART: S1, S2. EXTREMITIES: Without edema. LABORATORY DATA: Reveals troponin is negative x1. Hemoglobin is 12.3 with a white count of 11.3. Chest x-ray is unremarkable. IMPRESSION: 1. Dyspnea. 2. Exacerbation of chronic obstructive pulmonary disease triggered by an upper respiratory infection which may be viral in nature. 3. Stable angina. 4. Coronary artery disease. 5. History of percutaneous transluminal coronary angioplasty and stent. 6. Hypertension. 7. Hypercholesterolemia. Given these findings, we will restart the patient on her aspirin and Plavix. We will continue her IV antibiotics. Kris Piña MD
--- NOTE | 2018-05-11 19:53 | HP ---
DATE OF EXAM: 05/11/2018 HISTORY OF PRESENT ILLNESS: I know Lelo very well. She has been the patient of mine for a few years now, she is back in the hospital with acute respiratory distress, was very short of breath, also weak, generalized malaise for about 24-48 hours, also restless legs, chest tightness, cannot take a deep breath in and when ends up in the emergency room, she has done this before was kind of a sudden onset change. She has been out in the cold weather tightness. PAST MEDICAL HISTORY: She does have CHF, hypertension, and COPD. Urinary tract infections in the past. PAST SURGICAL HISTORY: History of tubal ligation in 1985. FAMILY HISTORY: Unknown family history. SOCIAL HISTORY: Former smoker, still drinks socially. No substance abuse. ALLERGIES: NO KNOWN DRUG ALLERGIES. MEDICATIONS: She is on Advair, Brovana, Levaquin at times, Pulmicort, prednisone at times, Ultram, Lasix, and digoxin. REVIEW OF SYSTEMS: No acute vision or hearing changes. She does have a sore throat, neck aches, chest pains and tightness in the chest, wheezing, coughing, shortness of breath, cannot walk a step or two that get her short of breath, even talk without getting short of breath, and non-STEMI right now even after Solu-Medrol 125. She is short of breath talking to me. She is having some abdominal discomfort. No nausea or vomiting. No constipation or diarrhea. Extremities are weak, a little bit of swelling. PHYSICAL EXAMINATION: VITAL SIGNS: She has a 99.1 temperature, 111 pulse, 18 respiratory rate, 117/51 blood pressure, and 98% O2 sat. GENERAL: This is just not Lelo was not the way she looks or speaks and she looks off. She is not well-appearing, she is little bit toxic, uncomfortable. Alert and oriented x3. HEENT: Head is atraumatic and normocephalic. Extraocular muscles are intact. Pupils are equal and reactive to light. Throat is dry. NECK: Supple. LUNGS: Decreased breath sounds, wheezing bilaterally, short of breath, cannot talk without stopping, she gets short of breath when she is talking. She is little bit tachypneic, little tachycardic. HEART: Regular rate, but fast. ABDOMEN: Soft and nontender. Positive bowel sounds. No guarding. No rebound. No CVA tenderness. EXTREMITIES: Have trace edema in the ankles. GCS is 15. Cranial nerves II through XII grossly intact. Speech is normal. SKIN: Warm and dry. No apparent rashes. NEUROLOGIC: Alert and oriented x3. Normal insight. Normal concentration. LYMPHS: Thyroid midline. No palpable appreciable lymphadenopathy. LABORATORY DATA: The chest x-ray was clear. She has a negative for flu. Digoxin level is 0.8. Urine shows large leukocytes, too numerous to count red blood cells, and many bacteria. She is having urinary tract infection. Sodium is 135, potassium 4.4, BUN 18, creatinine 1, GFR is 56, sugar is 133, calcium is 9.9, magnesium 2.3, and total bili is 0.3. AST is 34, ALT is 17, and alk phos is 89. Troponin I is less than 0.01. BNP is 67.4. Total protein is 7.9 and albumin is 4.7. INR is 0.97. White count is 11.3 with hemoglobin is 12.3, hematocrit is 39.4, and platelets are 392. She came in with a lactate of 2.5 and pH of 7.4. ASSESSMENT AND PLAN: She will have consults with the inspector and mender and electron microscopist, to be on Solu-Medrol, Zithromax, and Rocephin. She has urinary tract infection, chronic obstructive pulmonary disease, acute bronchitis exacerbation, asthma exacerbation that is what it looks like, it sounds like. She also is not feeling well overall. We will check her labs tomorrow and see what the consults have to say and she is being treated for acute asthmatic bronchitis, possible chronic obstructive pulmonary disease exacerbation, also urinary tract infection, she is also very weak, and tired. She will have a oxygen, Solu-Medrol, Rocephin, Zithromax, and her medications. Tom Santana DO DANTE
[2018-05-11] MEDS: MethylPREDNISolone 40 mg Vial IVP SCH (20:30)
[2018-05-11] MEDS: Arformoterol 15 mcg/2 ml Inh Sol IH SCH (21:23)
[2018-05-11] MEDS: Albuterol-Ipratrop 3 mg / 0.5 (3 ml) UD IH SCH (21:23)
[2018-05-11 23:41] VITALS: RESP 18; BMI 33.3
[2018-05-11] MEDS ORDERED: Influenza Vaccine 60 mcg/0.5 mL SYR (4YR UP) IM ONE (23:42)
[2018-05-11] MEDS ORDERED: Pneumococcal 23-Valent Vaccine IM ONE (23:42)
[2018-05-12] MEDS: Albuterol-Ipratrop 3 mg / 0.5 (3 ml) UD IH SCH ×2 (02:14→07:46)
[2018-05-12] MEDS: MethylPREDNISolone 40 mg Vial IVP SCH (04:20)
[2018-05-12] MEDS ORDERED: Budesonide 0.5 mg/2 ml Inhal Susp UD IH SCH (08:00)
[2018-05-12 08:16] LABS: HEMOGLOBIN 11.4 g/dL (12.0-16.0); MEAN CELL VOLUME 86.4 fl (80.0-105.0); MEAN CORPUSCULAR HEMOGLOBIN 27.7 pg (25.0-35.0); MEAN CORPUSCULAR HGB CONC 32.1 g/dl (31.0-37.0); MEAN PLATELET VOLUME 10.4 fl (7.0-11.0); RBC 4.11 10^6/uL (3.5-6.1); RED CELL DISTRIBUTION WIDTH 15.9 % (11.5-14.5); WHITE BLOOD COUNT 13.3 10^3/uL (4.5-11.0)
[2018-05-12 08:38] LABS: ALB/GLOB RATIO 1.5 (1.1-1.8); ALBUMIN 4.2 g/dL (3.0-4.8); ALT/SGPT 23 U/L (7-56); AST/SGOT 26 U/L (14-36); BLOOD UREA NITROGEN 18 mg/dL (7-21); CALCIUM 9.3 mg/dL (8.4-10.5); GFR NON-AFRICAN AMERICAN > 60
[2018-05-12 08:39] VITALS: PULSE 78; TEMP 97.4; O2SAT 96
[2018-05-12] MEDS ORDERED: Sod Polystyrene Sulf 15 gm/60 ml Susp PO ONE (09:02)
[2018-05-12] MEDS ORDERED: Azithromycin 500MG/NS 250ml 500 MG/250 ML BAG IVPB SCH (10:00)
[2018-05-12] MEDS ORDERED: Digoxin 250 mcg (0.25 mg) Tab PO SCH (10:00)
[2018-05-12] MEDS ORDERED: Furosemide 40 mg/5 mL Oral Soln UD PO SCH (10:00)
[2018-05-12] MEDS ORDERED: cefTRIAXone 1 gm 1 GM/100 ML BAG IVPB SCH (10:00)
[2018-05-12 10:58] VITALS: BP 120/70; PULSE 78
--- NOTE | 2018-05-12 11:10 | CARD ---
APPROVED REPORT Date of service: 05/11/2018 EKG Measurement Heart [id number] <Conclusion> Sinus tachycardia Possible Left atrial enlargement Nonspecific ST and T wave abnormality Abnormal ECG
--- NOTE | 2018-05-12 12:55 | CON ---
DATE: 05/12/2018 REASON FOR PULMONARY CONSULTATION: Chronic obstructive pulmonary disease. REFERRING PHYSICIAN: Dr. Santana. HISTORY OF PRESENT ILLNESS: The patient is a chronically ill 62-year-old female, with past medical history significant for advanced chronic obstructive pulmonary disease, asthma, recurrent bronchitis, coronary artery disease, status post multiple cardiac stents, who presents to [facility] with a 1-day history of worsening shortness of breath at rest and dyspnea on exertion. The patient denies cough or sputum production. She does state to chest "tightness." There is no history of chest pain, coughing up of blood, or chest pain - brought on with deep respirations. There is no history of temperatures, chills, or infectious exposure. There is no history of night sweats, weight loss, or appetite change prior to the above events. No history of calf pains. No history of syncope or diaphoresis. No history of recent travel or trauma. REVIEW OF SYSTEMS: No history of nausea, vomiting, or diarrhea. No acute urinary symptoms. Rest of the review of systems is negative. ALLERGIES: NO KNOWN ALLERGIES. SOCIAL HISTORY: Positive for extensive tobacco usage. No alcohol. FAMILY HISTORY: No inheritable diseases. MEDICATIONS: Home medications include Ultram, Lopressor, Zestril, Lasix, Advair, Lanoxin, Plavix, Lipitor, and Brovana PHYSICAL EXAMINATION: GENERAL: The patient appears comfortable this morning. She is not short of breath at rest. VITALS: Temperature is 98.4, pulse 92, respirations 18, blood pressure 140/74. Oxygen saturation on nasal cannula is 97%. HEENT: Normocephalic and atraumatic. NECK: No JVD. CARDIOVASCULAR: Positive S1, S2. No S3 gallop. LUNGS: Very minimal rhonchi bilaterally. No wheezing. EXTREMITIES: No clubbing, cyanosis, or edema. Calves are nontender to palpation. GI: Abdomen is soft, nontender, and nondistended. Bowel sounds are positive. SKIN: No acute rash. NEUROLOGIC: Exam limited at the present time. PERTINENT LABORATORY DATA: Chest x-ray was done yesterday and reviewed. There is no active pulmonary disease noted. CBC: White count 11.3K, hemoglobin 12.3, hematocrit 39.4, platelets of 392,000. Complete Metabolic Profile: Chloride 97, glucose 133, magnesium 2.3. Rest of the metabolic profile is within normal limits. IMPRESSION: 1. Recurrent bronchitis. 2. Advanced chronic obstructive pulmonary disease. 3. Asthma - moderate persistent. 4. Coronary artery disease. PLAN: I did discuss the case with the night nurse at length. I have also reviewed the chart at length, and discussed the case with the patient at length. The patient presents to [facility] with a 1-day history of worsening pulmonary symptoms. Apparently, she was exposed to cold the night before admission. I did review the chest x-ray as above. The chest x-ray reveals no acute disease. On physical exam, there is only minimal bronchospasm noted. In addition, there is no significant alveolar-arterial gradient. I will continue with the current nebulizer treatments and change to oral steroids this morning. In addition, I will add inhaled steroids this morning. The patient does state to feeling much, much better this morning and states in "I feel great." Most likely, the exposure to the cold sent the patient into bronchospasm. Again, she significantly improved this morning. Additional pulmonary intervention will be based on the clinical status of the patient. I will discuss the above with Dr. Santana. Thank you very much for this pulmonary consultation. Alex Mcgill MD [facility]
[2018-05-12] MEDS: Arformoterol 15 mcg/2 ml Inh Sol IH SCH (13:39)
--- NOTE | 2018-05-12 18:31 | PN ---
DATE: 05/12/2018 SUBJECTIVE: The patient's breathing is better compared to yesterday. PHYSICAL EXAMINATION: VITAL SIGNS: Blood pressure 120/70, heart rates in the 80s. NECK: Negative JVD. LUNGS: Bilateral rhonchi. HEART: S1, S2. EXTREMITIES: Without edema. LABORATORY DATA: Glucose is 193. Hemoglobin is 13. IMPRESSION: 1. Excerebration of chronic obstructive pulmonary disease. 2. Upper respiratory infection. 3. Stable angina. 4. Coronary artery disease. 5. Hypertension. 6. Hypercholesterolemia. PLAN: Given these findings, the patient's cardiac status is stable. No further cardiac workup is indicated at this time. Kris Piña MD
--- NOTE | 2018-05-12 21:29 | DS ---
HISTORY OF PRESENT ILLNESS: She came in yesterday quite short of breath. Apparently, she went out in the cold weather and was breathing in that for awhile and made her having exacerbation of bronchospasm. She came to the emergency room and was put on Solu-Medrol. MEDICATIONS: She is on Brovana, Ecotrin, Lanoxin, Lasix, Lipitor, Lopressor, Plavix, IV steroids was switched to prednisone by the bilingual executive assistant, on Pulmicort, Rocephin, Ultram, Zestril, and Zithromax. She is doing better this morning. No shortness of breath. PHYSICAL EXAMINATION: VITAL SIGNS: She has 97.4 temperature, 92 pulse, 121/72 blood pressure, 18 respiratory rate, and O2 sat on room air. HEENT: Head is atraumatic and normocephalic. HEART: Regular rate. LUNGS: Decreased breath sounds, but clear. No wheezes. No rhonchi. No rales. ABDOMEN: Soft and nontender. Positive bowel sounds. No guarding. LABORATORY DATA: She has a white count of 30.3 from the steroids, 11.4 hemoglobin, 35.5 hematocrit with 402 platelets. Lactate was now down to 1.7. Sodium 135, potassium 5.4, gave her some Kayexalate before she leaves, BUN 18, creatinine 0.8, GFR is greater than 60, and sugar is 193. Calcium is 9.3, total bili is 0.2, AST is 26, ALT is 23, and alk phos 76. Troponin I is less than 0.01. BNP was 67.4. Total protein 6.9. ASSESSMENT AND PLAN: So, overall she did better. She will be discharged today. She will be on prednisone 40 for 3 days and 30 for 3 days and 20 for 2 days, and 10 for 2 days. I will put her on Cipro for the urinary tract infection 500 twice a day for 7 days and I will see her on the outpatient and hopefully she will continue to improve. The patient has short of breath, urinary tract infection, most likely asthmatic bronchitis exacerbation. Tom Santana DO [facility] # [id number]
== END 2018-05-12 17:16 | disposition home or self-care (01) ==
LOC: ED 10:22 → ERH 12:44 → INTOOBSV 18:33 → OBSVTOIN 18:33 → 5RSO 18:44
PROVIDERS: ADMIT Family Medicine; ATTEND Family Medicine
DX: J45.41 Moderate persistent asthma with (acute) exacerbation (principal); J44.1 Chronic obstructive pulmonary disease with (acute) exacerbation; J44.0 Chronic obstructive pulmonary disease with (acute) lower respiratory infection; J20.9 Acute bronchitis, unspecified; N39.0 Urinary tract infection, site not specified; I11.0 Hypertensive heart disease with heart failure; I50.9 Heart failure, unspecified; I25.118 Atherosclerotic heart disease of native coronary artery with other forms of angina pectoris; E78.00 Pure hypercholesterolemia, unspecified; G25.81 Restless legs syndrome; Z87.440 Personal history of urinary (tract) infections; Z87.891 Personal history of nicotine dependence; Z95.5 Presence of coronary angioplasty implant and graft; Z98.51 Tubal ligation status
CPT/HCPCS: 36415; 71045; 80053; 80162; 81001; 82803; 83735; 83880; 84484; 85025; 85027; 85610; 85730; 87040; 87086; 87804; 93005; 94640; 94760; 96365; 96367; 96375; 96376; 99285; G0378; J0456; J0696; J1885; J2920; J2930; J3475; J7030

== ENCOUNTER 2018-07-30 13:07 | Outpatient (CLI) | payer MEDICAID | END 2018-07-30 13:08 | disposition home or self-care (01) | LOC: RAD 13:07 | DX: Z12.31 Encounter for screening mammogram for malignant neoplasm of breast (principal) ==

== ENCOUNTER 2018-08-16 20:26 | Observation (INO) | payer MEDICAID | END 2018-08-18 11:58 | disposition home or self-care (01) | LOC: ERH 08-17 00:12 → ED 20:26 → ERH 08-17 09:00 → 3RSO 08-17 11:01 ==